=== PATIENT | female | born 1995 ===

== ENCOUNTER 2024-12-06 11:22 | Outpatient (AMB) | payer OTHER, SELFPAY ==
--- NOTE | 2024-12-06 11:26 | MHC.PC.OV ---
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 Fatigue: - Persistent fatigue despite adequate sleep, with associated snoring and nocturnal gasping for air. Anemia: - History of anemia with irregular menstrual cycles potentially contributing to fatigue. Urinary Frequency and Urgency: - Reports frequent urination and discomfort when delaying urination. Review of Systems - General: Reports persistent fatigue despite adequate sleep. - Respiratory: Reports snoring and episodes of waking up gasping for air. - Genitourinary: Reports urinary frequency and urgency, denies incontinence. 10-point ROS reviewed and negative except as noted in HPI Past Medical History - History of anemia Health Maintenance - Sleep study recommended to evaluate for sleep apnea. - Blood tests including hemoglobin, metabolic panel, and thyroid function tests planned. Physical Exam General: Well-appearing, in no acute distress. Vital signs: Within normal limits. HEENT: Normocephalic, atraumatic. PERRLA, EOMI. Conjunctiva clear, sclera anicteric. Oropharynx clear, mucous membranes moist. TMs intact bilaterally. Neck: Supple, no lymphadenopathy, no thyromegaly, no JVD or carotid bruits. Cardiovascular: RRR, normal S1/S2, no murmurs, rubs, or gallops. Peripheral pulses 2+ and symmetric. No edema. Respiratory: Lungs clear to auscultation bilaterally, no wheezes, rales, or rhonchi. Normal effort. Abdomen: Soft, non-tender, non-distended. Normoactive bowel sounds. No hepatosplenomegaly, no masses. MSK: Full range of motion, no joint swelling or deformity. Normal gait. Skin: Warm, dry, intact. No rashes, lesions, or pallor. Neuro: Alert and oriented x3. Cranial nerves II-XII intact. Strength 5/5 throughout. Sensation intact. Reflexes 2+ symmetric. Normal coordination and gait. Psych: Appropriate mood and affect. Normal judgment and insight. Plan 1. Fatigue - Plan to conduct a sleep study to evaluate for sleep apnea. 2. Anemia - Plan to perform blood tests including a complete blood count to assess anemia. 3. Urinary Frequency And Urgency - Plan to conduct urinalysis and further evaluation for urinary symptoms. Discussion Notes I discussed with the patient the potential causes of her fatigue, including sleep apnea and anemia. We agreed on conducting a sleep study and blood tests to further evaluate these conditions. I also explained the importance of monitoring her urinary symptoms and the need for further evaluation. Patient was informed and verbally consented to the use of an ambient scribe for clinic note documentation during this visit. Patient Instructions - Schedule and complete the sleep study as discussed. - Follow up with blood tests as ordered to check for anemia and other conditions. - Monitor urinary symptoms and report any changes or worsening. Total time spent caring for the patient today was 30minutes. This includes time spent before the visit reviewing the chart, time spent documenting, and time spent medications, performing a medically necessary evaluation, counseling on diagnoses, care coordination, ordering appropriate tests. [facility] Medical History (Updated 12/06/24 @ 11:45 by Eric Boothe MD) Sensation of pressure in bladder area Frequency of micturition Fatigue Snoring Family History (Updated 12/06/24 @ 11:29 by Martina Renner MA) Father No problems noted. Mother No problems noted. Social History (Updated 12/06/24 @ 11:35 by Martina Renner MA) Housing: Apartment Alcohol intake: current Alcohol intake frequency: holidays/special occasions only Patient Tobacco Use Status: Never used Tobacco service: No Current occupational status: unemployed Cognitive needs: No Hearing needs: No Vision needs: No Questionnaire PHQ-9 Over the last 2 weeks, how often have you been bothered by any of the following problems? 1. Little interest or pleasure in doing things: not at all 2. Feeling down, depressed, or hopeless: not at all 3. Trouble falling or staying asleep, or sleeping too much: not at all 4. Feeling tired or having little energy: more than half the days 5. Poor appetite or overeating: not at all 6. Feeling bad about yourself - or that you are a failure or have let yourself or your family down: not at all 7. Trouble concentrating on things, such as reading the newspaper or watching television: not at all 8. Moving or speaking so slowly that other people could have noticed. Or the opposite - being so fidgety or restless that you have been moving around a lot more than usual: not at all 9. Thoughts that you would be better off or of hurting yourself in some way: not at all Total score: 2 Source: Developed by Drs. Josafat Jordan, Carolyn Otero, Srinivasa Ramirez and colleagues, with an educational yaniv from [employer]. Thrive Questionnaire Date Thrive assessed: 11/29/24 I am a: Patient What is your living situation today?: I have a steady place to live Within the past 12 months, did the food you bought not last and you didn't have the money to get more?: Never true Within the past 12 months, did you worry whether your food would run out before you got money to buy more?: Never true Do you have trouble paying for medicines?: No Do you have trouble getting transportation to medical appointments?: No Do you have trouble paying your heating and electricity bill?: No Do you have trouble taking care of your child, family member or friend?: No Do you have trouble with day-to-day activities such as bathing, preparing meals, shopping, managing finances, etc.?: No Are you currently unemployed and looking for a job?: No Are you interested in more education?: No Please select the resources that you would like help with: None Currently or been in a relationship where the following occur: No concerns reported THRIVE Score: 0 AUDIT C Alcohol Use Questionnaire (AUDIT-C) 1. How often do you have a drink containing alcohol?: Never 3. How often do you have six or more drinks on one occasion?: Never Total Score: 0 BEL-7 AMB Questionnaire BEL-7 Feeling nervous, anxious, or on edge: 0 = Not at all Not being able to stop or control worryin = Not at all Worrying too much about different things: 0 = Not at all Trouble relaxin = Not at all Being so restless that it is hard to sit still: 0 = Not at all Becoming easily annoyed or irritable: 0 = Not at all Feeling afraid as if something awful might happen: 0 = Not at all Total BEL-7 score (0-4 normal; 5-9 mild; 10-14 moderate; 15-21 severe): 0 Source: Developed by Drs. Josafat Jordan, Carolyn Otero, Srinivasa Ramirez and colleagues, with an educational yaniv from [employer]. Physical exam (Primary Care) Vital Signs: Last Vital Signs Temp 98 F 12/06/24 11:32 Pulse 68 12/06/24 11:32 Resp 16 12/06/24 11:32 BP 115/69 12/06/24 11:32 Pulse Ox 98 12/06/24 11:32 Oxygen Delivery Method Room Air 12/06/24 11:32 BMI result Body Mass Index 28.4 Tobacco/Smoking Status: Tobacco use Status Tobacco use date assessed 12/06/24 12/06/24 11:30 Patient Tobacco Use Status Never used Tobacco 12/06/24 11:35 PHQ-9: PHQ-9 Score PHQ-9: Total score 2 12/06/24 11:30 Thrive Assessment: Date of Thrive Assessment Date Thrive assessed 11/29/24 12/06/24 11:30 Currently or been in a relationship where the following occur: No concerns reported Coding Level of Care Code New Pt Level 4 (44152) Diagnoses Fatigue R53.83 Snoring R06.83 Frequency of micturition R35.0 Sensation of pressure in bladder area R39.89 Anemia D64.9 Urgency of micturition R39.15 Assessment & Plan Assessment & Plan (1) Fatigue: Code(s): R53.83 - Other fatigue Category: Medical (2) Snoring: Code(s): R06.83 - Snoring Category: Medical (3) Frequency of micturition: Code(s): R35.0 - Frequency of micturition Category: Medical (4) Sensation of pressure in bladder area: Code(s): R39.89 - Other symptoms and signs involving the genitourinary system Category: Medical (5) Anemia: Code(s): D64.9 - Anemia, unspecified (6) Urgency of micturition: Code(s): R39.15 - Urgency of urination Plan Orders: Orders Complete Blood Count Auto Diff Today Z13.9 - Encounter for screening, unspecified Magnesium Today Z13.9 - Encounter for screening, unspecified Hepatitis C Antibody Today Z13.9 - Encounter for screening, unspecified Vitamin B12 and Folate Today Z13.9 - Encounter for screening, unspecified RT home sleep study Today N92.6 - Irregular menstruation, unspecified, R06.83 - Snoring, R53.83 - Other fatigue, Z13.9 - Encounter for screening, unspecified Comprehensive Met. Panel Today Z13.9 - Encounter for screening, unspecified Hemoglobin A1c Today Z13.9 - Encounter for screening, unspecified Hepatitis B Surface Antibody Today Z13.9 - Encounter for screening, unspecified Hepatitis B Surface Antigen Today Z13.9 - Encounter for screening, unspecified HIV Ab/Ag Today Z13.9 - Encounter for screening, unspecified Lipid Panel Today Z13.9 - Encounter for screening, unspecified TSH reflex Free T4 Today Z13.9 - Encounter for screening, unspecified UA CC w/rflx Micro + Cult Today Z13.9 - Encounter for screening, unspecified Vitamin D 1,25 dihydroxy Today Z13.9 - Encounter for screening, unspecified
[2024-12-06 11:32] VITALS: BP 115/69; PULSE 68; RESP 16; TEMP 36.6; O2SAT 98; BMI 28.4
--- OUTSIDE RECORDS SUMMARY | 2024-12-06 13:56 | XMS_ITS | Encounter Summary ---
Author Organization [facility] Address [address] [place] [address] Care Team Providers Care Drier Belt Conveyor Name Role Phone Unavailable Primary Care Provider Unavailabl e Encounter Details Date Type Department Care Team ([facility] st Contact Info) Description 03/08/2020 Orders Only [facility] DIRECTOR OF CARDIOLOGY [address] [facility] [address] [place] [address] Cha Qureshi NP [address] [place] [address] Social History Tobacco Use Types Packs/Day Years Used Date Smoking Tobacco: Never Smokeless Tobacco: Never Alcohol Use Standard Drinks/Week Comments No 0 (1 standard drink = 0.6 oz pur e alcohol) Comments Yes Sex and Gender Information Value Date Recorded Sex Assigned at Female 07/12/2021 8:30 AM EDT Legal Sex Female 9:09 AM EST Gender Identity Female 07/12/2021 8:30 AM EDT Sexual Orientation Not on file 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 No / Unsure 03/07/2020 7:12 PM EST documented as of this encounter Progress Notes * Cha Qureshi NP - 03/08/2020 10:17 AM EST H&H, 11/29 Left pt a my chart message Adding vitron C, 2 tabs daily in addition to her pnv Ordering iron labs documented in this encounter Plan of Treatment Not on file documented as of this encounter Procedures * Due to [place] [employer] law, this organization might not be sharing negative HIV tests. Procedure Name Priority Date/Time Associated Diagnosis Comments VENIPUNCTURE Routine 03/08/2020 10:18 AM EST Encounter for supervision of normal , antepartum, unspecified VENIPUNCTURE Routine 03/08/2020 10:18 AM EST Encounter for supervision of normal , antepartum, unspecified documented in this encounter Results * Due to [place] [employer] law, this organization might not be sharing negative HIV tests. * GLUCOSE, 1 HR GESTATIONAL SCREEN (50G CHALLENGE) (03/08/2020 10:18 AM EST) Glucose^1H post 50 g glucose PO 110 <135 mg/dL [facility] 03/08/2020 10:1 8 AM EST 03/09/2020 1:18 AM EST Narrative Resulting Agency Comment [id number] Cha Qureshi NP LABORATORY Final Result Performing Organization Address City/State/[facility] Co de Phone Number [facility] [address] [place] [address] * (ABNORMAL) CBC INCLUDES DIFFERENTIAL AND PLATELET COUNT (03/08/2020 10:18 AM EST) WBC 10.7 3.8 - 10.8 Thousand/u L [facility] RBC 3.58(L) 3.80 - 5.10 Million/uL [facility] Hemoglobin 9.1(L) 11.7 - 15.5 g/dL [facility] Hematocrit 29.3(L) 35.0 - 45.0 % [facility] MCV 81.8 80.0 - 100.0 fL [facility] MCH 25.4(L) 27.0 - 33.0 pg [facility] MCHC 31.1(L) 32.0 - 36.0 g/dL [facility] RDW 14.1 11.0 - 15.0 % [facility] PLT 189 140 - 400 Thousand/u L [facility] MPV 10.5 7.5 - 12.5 fL [facility] Neutrophils # 8785(H) 1500 - 7800 cells/uL [facility] Lymphocytes # 1348 850 - 3900 cells/uL [facility] Monocytes # 503 200 - 950 cells/uL [facility] Eosinophils # 21 15 - 500 cells/uL [facility] Basophils # 43 0 - 200 cells/uL [facility] Neutrophils % 82.1 % [facility] Lymphocytes % 12.6 % [facility] Monocytes % 4.7 % [facility] Eosinophils % 0.2 % [facility] Basophils % 0.4 % [facility] 03/08/2020 10:1 8 AM EST 03/09/2020 1:18 AM EST Narrative Resulting Agency Comment [id number] us Cha Qureshi TOWER EXCAVATOR OPERATOR LAB SAME DAY RESULT Final Re sult Performing Organization Address City/State/[facility] Co de Phone Number [facility] [address] [place] [address] documented in this encounter Visit Diagnoses Diagnosis Encounter for supervision of normal , antepartum, unspecified ([facility]) documented in this encounter Care Teams Drier Belt Conveyor Relationship Specialty Start Date End Date Scarlett Norris [address] [address] 10/30/17 documented as of this encounter
--- OUTSIDE RECORDS SUMMARY | 2024-12-06 13:56 | XMS_ITS | Encounter Summary ---
Author Organization [facility] Address [address] [place] [address] Care Team Providers Care Five Piece Expansion Maker Hand Name Role Phone Padmini Hamilton CNM Unavailable Unavailable Encounter Details Date Type Department Care Team ([facility] st Contact Info) Description 05/30/2017 Orders Only [facility] DENTAL OFFICE COORDINATOR [address] [facility] [address] [place] [address] Manuela Peng CNM [address] [place] [address] Social History Tobacco Use Types Packs/Day Years [...] AM EDT Sexual Orientation Not on file documented as of this encounter Progress Notes * Sherlyn Perry LVN LPN - 06/04/2017 1:19 PM EDT On pap problem list and noted on OB relevant problems. Letter sent * Debra Lewis CNM - 06/04/2017 7:05 AM EDT Per ASCCP guidelines, yes to repeat pap in 1 year. Please update pt's problem list, she will need apap PP. Thanks * Marie Hernandez, SANTOS - 06/03/2017 2:33 PM EDT 06/03/17 PAP LGSIL. Plan - OK for repeat in 1 year? To problem list and provider for review/advice Neg STD to provider fyi documented in this encounter Plan of Treatment Not on file documented as of this encounter Procedures * Due to [place] [employer] law, this organization might not be sharing negative HIV tests. Procedure Name Priority Date/Time Associated Diagnosis Comments THINPREP TIS PAP REFLEX HPV MRNA E6/E7, CT/NG, TRICH Routine 05/30/2017 10:51 AM EDT Encounter for supervision of normal first in first trimester documented in this encounter Results * Due to [place] [employer] law, this organization might not be sharing negative HIV tests. * (ABNORMAL) THINPREP TIS PAP REFLEX HPV MRNA E6/E7, CT/NG, TRICH (05/30/2017 10:51 AM EDT) Clinical information 11.5 WKS [facility] Date last menstrual period NONE GIVEN [facility] Date of previous PAP smear NONE [facility] Date of previous biopsy NONE GIVEN [facility] Specimen source (Cvx/Vag) Cervix, Endocervix [facility] Statement of Adequacy (Cvx/Vag) Satisfactory for evaluation. Endocervical/byrne sformation zone component present. [facility] General categories (Cvx/Vag) EPITHELIAL CELL ABNORMALITY(A) [facility] Cytology, Pap Smear Low Grade Squamous Intraepithelial Lesion (LSIL)(A) [facility] Cytology study comment (Cvx/Vag) This Pap test has been evaluated with computer assisted technology. [facility] Rn Peritoneal Dialysis (Cvx/Vag) ALS CT(ASCP) CT screening location: [place] [address] [facility] Pathologist (Cvx/Vag) Matteo Pack M.D. Direct , Board Certified in Anatomic and Clinical Pathology and Cytopathology (electronic signature) Consulting Pathologist [facility]ology [address] [place] [id number] [facility] COMMENT SEE NOTE [facility] Comment: EXPLANATORY NOTE: The Pap is a screening test for cervical cancer. It is not a diagnostic test and is subject to false negative and false positive results. It is most reliable when a satisfactory sample, regularly obtained, is submitted with relevant clinical findings and history, and when the Pap result is evaluated along with historic and current clinical information. Chlamydia trachomatis rRNA NOT DETECTED NOT DETECTED [facility] Neisseria Gonorrhoeae rRNA NOT DETECTED NOT DETECTED [facility] COMMENT SEE NOTE [facility] Comment: This test was performed using the APTIMA COMBO2 Assay ([employer] The analytical performance characteristics of this assay, when used to test SurePath specimens have been determined by [employer]. Trichomonas vaginalis rRNA NOT DETECTED NOT DETECTED [facility] Comment: This test was performed using the APTIMA(R) Trichomonas vaginalis assay ([employer](R)). For more information on this test, go to: http://education.[employer]/faq/Trichomonastma The performance characteristics of this assay when used to test SurePath(R) specimens have been determined by [employer]. Performance characteristics refer to the analytical performance of this test. 05/30/2017 10:5 1 AM EDT 05/30/2017 7:52 PM EDT Narrative Resulting Agency Comment [id number] us Manuela Peng CNM PATHOLOGY-INTERFACED Final Res ult [facility] [address] [place] [address] documented in this encounter Visit Diagnoses Diagnosis Encounter for supervision of normal first in first trimester ([facility]) Supervision of normal first documented in this encounter Care Teams Five Piece Expansion Maker Hand Relationship Specialty Start Date End Date Padmini Hamilton CNM Coin Teller Certified Nurse Coin Teller 05/02/17 10/29/17 Scarlett Norris [address] [address] 10/30/17 documented as of this encounter
--- OUTSIDE RECORDS SUMMARY | 2024-12-06 13:56 | XMS_ITS | Encounter Summary ---
Author Organization [facility] Address [address] [place] [address] Care Team Providers Care Endband Sizer Name Role Phone Unavailable Primary Care Provider Unavailabl e Encounter Details Date Type Department Care Team (Late st Contact Info) Description 12/02/2019 Orders Only [facility] PICKING TECH [address] [facility] [address] [place] [address] Mihir Marcus, ADJUSTER LEADER Social History Tobacco Use Types Packs/Day Years [...] have Coronavirus / COVID-19? No / Unsure 12/02/2019 12:42 PM EDT documented as of this encounter Progress Notes * Mihir Marcus - 12/02/2019 2:44 PM EDT Abnormal pap, needs colposcopy * Halle Hernández RN - 12/02/2019 2:44 PM EDT See TE 12/07/19 documented in this encounter Plan of Treatment Not on file documented as of this encounter Procedures * Due to [facility] law, this organization might not be sharing negative HIV tests. Procedure Name Priority Date/Time Associated Diagnosis Comments THINPREP TIS PAP REFLEX HPV MRNA E6/E7, CHLAMYDIA/N.GONORR HOEAE Routine 12/02/2019 2:44 PM EDT Encounter for gynecological examination without abnormal finding documented in this encounter Results * Due to [place] [employer] law, this organization might not be sharing negative HIV tests. * (ABNORMAL) THINPREP TIS PAP REFLEX HPV MRNA E6/E7, CHLAMYDIA/N.GONORRHOEAE (12/02/2019 2:44 PM EDT) Clinical information [id number] [facility] Date last menstrual period [facility] Date of previous PAP smear 04/17/2018, ACUS, 2 YRS AGO LSIL [facility] Date of previous biopsy NONE GIVEN [facility] Specimen source (Cvx/Vag) Cervix [facility] Statement of Adequacy (Cvx/Vag) Satisfactory for evaluation. Endocervical/byrne sformation zone component present. [facility] General categories (Cvx/Vag) EPITHELIAL CELL ABNORMALITY(A) [facility] Cytology, Pap Smear Low Grade Squamous Intraepithelial Lesion (LSIL)(A) [facility] Cytology study comment (Cvx/Vag) This Pap test has been evaluated with computer assisted technology. [facility] Performing Artist (Cvx/Vag) GSG, CT(ASCP) CT screening location: [place] [address] [facility] Pathologist (Cvx/Vag) Tiara Lloyd M.D.,PhD, Board Certified in Anatomic and Clinical Pathology and Cytopathology (electronic signature) Consulting Pathologist [facility]ology [address] [place] [id number] [facility] COMMENT SEE NOTE [facility] [...] DIAGNOSTICS COMMENT SEE NOTE [facility] Comment: The analytical performance characteristics of this assay, when used to test SurePath(TM) specimens have been determined by [employer]. The modifications have not been cleared or approved by the FDA. This assay has been validated pursuant to the CLIA regulations and is used for clinical purposes. For additional information, please refer to https://education.[employer]/faq/QVP609 (This link is being provided for information/ educational purposes only.) Cervical 12/02/2019 2:44 PM EDT 12/03/2019 5:53 AM EDT Narrative Resulting Agency Comment [id number] us Mihir Marcus NP PATHOLOGY-INTERFACED Final Res ult Performing Organization Address City/State/[facility] Co de Phone Number [facility] [address] [place] [address] documented in this encounter Visit Diagnoses Diagnosis Encounter for gynecological examination without abnormal finding Routine gynecological examination documented in this encounter Care Teams Endband Sizer Relationship Specialty Start Date End Date Scarlett Norris [address] [address] 10/30/17 documented as of this encounter
--- OUTSIDE RECORDS SUMMARY | 2024-12-06 13:56 | XMS_ITS | Encounter Summary ---
Author Organization [facility] Address [address] [place] [address] Care Team Providers Care Manager Pmo Name Role Phone Unavailable Primary Care Provider Unavailabl e Encounter Details Date Type Department Care Team (Late st Contact Info) Description 10/29/2019 Orders Only [place] [employer] [address] [place] [address] Gisselle Urena CNM [address] [place] [address] Social History Tobacco Use Types Packs/Day Years Used Date Smoking Tobacco: Never Smokeless Tobacco: Never Alcohol Use Standard Drinks/Week Comments No 0 (1 standard drink = 0.6 oz pur e alcohol) Comments No Sex and Gender Information Value Date Recorded Sex Assigned at Female 07/12/2021 8:30 AM EDT Legal Sex Female 9:09 AM EST Gender Identity Female 07/12/2021 8:30 AM EDT Sexual Orientation Not on file documented as of this encounter Progress Notes * Jess Bailey - 10/29/2019 11:29 AM EDT Already reviewed by Patricia Urena and pt via my chart. Needs dating US due to Unknown LMP. See TMS for follow up. documented in this encounter Plan of Treatment Not on file documented as of this encounter Procedures * Due to [place] state law, this organization might not be sharing negative HIV tests. Procedure Name Priority Date/Time Associated Diagnosis Comments VENIPUNCTURE Routine 10/29/2019 11:29 AM EDT Date of last menstrual period (LMP) unknown documented in this encounter Results * Due to [place] [employer] law, this organization might not be sharing negative HIV tests. * (ABNORMAL) HCG, (HUMAN CHORIONIC GONADOTROPIN), TOTAL, QUANTITATIVE (10/29/2019 11:29 AM EDT) HCG, Total, Quantitative 159302(H) mIU/mL [facility] Comment: Reference Range Non or premenopausal <5 Postmenopausal <10 Values from different assay methods may vary. The use of this assay to monitor or to diagnose patients with cancer or any condition unrelated to has not been cleared or approved by the FDA or the heavy coil winder of the assay. 10/29/2019 11:2 9 AM EDT 10/29/2019 1:57 PM EDT Narrative Resulting Agency Comment [id number] Gisselle Urena [facility] LAB SAME DAY RESULT Final Result Performing Organization Address City/State/[facility] Co de Phone Number [facility] [address] [place] [address] documented in this encounter Visit Diagnoses Diagnosis Date of last menstrual period (LMP) unknown documented in this encounter Care Teams Manager Pmo Relationship Specialty Start Date End Date Scarlett Norris [address] [address] 10/30/17 documented as of this encounter
--- OUTSIDE RECORDS SUMMARY | 2024-12-06 13:56 | XMS_ITS | Encounter Summary ---
Author Organization [facility] Address [address] [place] [address] Care Team Providers Care Supervisor Aircraft Cleaning Name Role Phone Lucretia Salas MD Primary Care Provider [phone] Padmini Hamilton CNM Unavailable Unavailable Encounter Details Date Type Department Care Team (Late st Contact Info) Description 04/14/2017 Orders Only [facility] [address] [place] [address] Padmini Hamilton CNM Social History Tobacco Use Types Packs/Day Years Used Date Smoking Tobacco: Never Assessed Comments Unknown Sex and Gender Information Value Date Recorded Sex Assigned at Female 07/12/2021 8:30 AM EDT Legal Sex Female 9:09 AM EST Gender Identity Female 07/12/2021 8:30 AM EDT Sexual Orientation Not on file documented as of this encounter Progress Notes * Lexi Norman RN - 04/15/2017 11:39 AM EST Patient scheduled for routine OB appts documented in this encounter Plan of Treatment Not on file documented as of this encounter Procedures * Due to [place] state law, this organization might not be sharing negative HIV tests. Procedure Name Priority Date/Time Associated Diagnosis Comments HCG, TOTAL, QL Routine 04/14/2017 12:16 PM EST Unconfirmed documented in this encounter Results * Due to [place] state law, this organization might not be sharing negative HIV tests. * URINALYSIS, COMPLETE INCLUDES DIPSTICK AND MICROSCOPIC (04/28/2017 2:52 PM EST) Color (Urine) YELLOW YELLOW [facility] Appearance (Urine) CLEAR CLEAR [facility] Specific gravity (Urine) 1.008 1.001 - 1.035 [facility] pH (Urine) 6.5 5.0 - 8.0 [facility] Glucose (Urine) NEGATIVE NEGATIVE [facility] Bilirubin (Urine) NEGATIVE NEGATIVE [facility] Ketones (Urine) NEGATIVE NEGATIVE [facility] Hemoglobin (Urine) NEGATIVE NEGATIVE [facility] Protein (Urine) NEGATIVE NEGATIVE [facility] Nitrite (Urine) NEGATIVE NEGATIVE [facility] Leukocyte esterase (Urine) NEGATIVE NEGATIVE [facility] WBC (Urine) NONE SEEN < OR = 5 /HPF [facility] RBC (Urine Sed) NONE SEEN < OR = 2 /HPF [facility] Epithelial cells.squamous (Urine sed) 0-5 < OR = 5 /HPF [facility] Bacteria (Urine) NONE SEEN NONE SEEN /HPF [facility] Hyaline casts (Urine sed) NONE SEEN NONE SEEN /LPF [facility] 04/28/2017 2:52 PM EST 04/29/2017 12:15 AM EST Narrative Resulting Agency Comment [id number] Padmini Hamilton CNM LAB SAME DAY RESULT Final Re sult Performing Organization Address [facility] Co de Phone Number [facility] [address] [place] [address] * CULTURE, URINE, ROUTINE (04/28/2017 2:52 PM EST) Bacteria culture (Urine) SEE NOTE [facility] Comment: CULTURE, URINE, ROUTINE MICRO NUMBER: [id number] TEST STATUS: FINAL SPECIMEN SOURCE: URINE SPECIMEN QUALITY: ADEQUATE RESULT: No Growth 04/28/2017 2:52 PM EST 04/29/2017 12:15 AM EST Narrative Resulting Agency Comment [id number] Padmini Hamilton [facility] Final Result Performing Organization Address [facility] Co de Phone Number [facility] [address] [place] [address] * (ABNORMAL) 1 PROFILE WITH VZV (04/28/2017 2:52 PM EST) WBC 10.8 3.8 - 10.8 Thousand /uL [facility] RBC 4.21 3.80 - 5.10 Million/ uL [facility] Hemoglobin 12.4 11.7 - 15.5 g/dL [facility] Hematocrit 37.4 35.0 - 45.0 % [facility] MCV 88.7 80.0 - 100.0 fL [facility] MCH 29.5 27.0 - 33.0 pg [facility] MCHC 33.3 32.0 - 36.0 g/dL [facility] RDW 13.7 11.0 - 15.0 % [facility] PLT 241 140 - 400 Thousand /uL [facility] MPV 8.9 7.5 - 12.5 fL [facility] Neutrophils # 7916(H) 1500 - 7800 cells/uL [facility] Lymphocytes # 2106 850 - 3900 cells/uL [facility] Monocytes # 702 200 - 950 cells/uL [facility] Eosinophils # 32 15 - 500 cells/uL [facility] Basophils # 43 0 - 200 cells/uL [facility] Neutrophils % 73.3 % [facility] Lymphocytes % 19.5 % [facility] Monocytes % 6.5 % [facility] Eosinophils % 0.3 % [facility] Basophils % 0.4 % [facility] Blood group antibody screen NO ANTIBODIES DETECTED [facility] Comment: Reference range No antibodies detected This assay is a screening test for the detection of red blood cell antibodies. The test is not to be used for pretransfusion screening or for the medical management of an alloimmunized . Blood Group O [facility] Rh Type RH(D) POSITIVE [facility] Reagin Ab NON-REACTIVE NON-REAC TIVE [facility] Hepatitis B virus surface Ag NON-REACTIVE NON-REAC TIVE [facility] Rubella virus Ab.IgG 3.67 index [facility] Comment: Index Interpretation ----- <0.90 Not consistent with Immunity 0.90-0.99 Equivocal > or = 1.00 Consistent with Immunity The presence of rubella IgG antibody suggests immunization or past or current infection with rubella virus. Glucose 90 65 - 99 mg/dL [facility] Comment:Fasting reference in terval Varicella zoster virus Ab.IgG 245.10 index [facility] Comment: Index Interpretation --------- <135.00 Negative - Antibody not detected 135.00 - 164.99 Equivocal > or = 165.00 Positive - Antibody detected A positive result indicates that the patient has antibody to VZV but does not differentiate between an active or past infection. The clinical diagnosis must be interpreted in conjunction with the clinical signs and symptoms of the patient. This assay reliably measures immunity due to previous infection but may not be sensitive enough to detect antibodies induced by vaccination. Thus, a negative result in a vaccinated individual does not necessarily indicate susceptibility to VZV infection. 04/28/2017 2:52 PM EST 04/29/2017 12:15 AM EST Narrative Resulting Agency Comment [id number] Padmini Hamilton CNM LABORATORY Final Result Performing Organization Address [facility] Co de Phone Number [facility] [address] [place] [address] * (ABNORMAL) HCG, TOTAL, QL (04/14/2017 12:16 PM EST) HCG, Qualitative (Screen) POSITIVE( A) [facility] Comment: Reference Range Non-: Negative : Positive 04/14/2017 12:1 6 PM EST 04/14/2017 4:51 PM EST Narrative Resulting Agency Comment [id number] Padmini Hamilton CNM LAB SAME DAY RESULT Final Re sult Performing Organization Address [facility] Co de Phone Number [facility] [address] [place] [address] documented in this encounter Visit Diagnoses Diagnosis Unconfirmed examination or test, unconfirmed Supervision of normal first , antepartum (HHS) Urine frequency Urinary frequency Screening for HIV (human immunodeficiency virus) Special screening examination for other specified viral diseases documented in this encounter Care Teams Supervisor Aircraft Cleaning Relationship Specialty Start Date End Date [place] [address] PCP - General Pediatrics 04/14/17 04/14/17 Padmini Hamilton CNM [address] [address] Canteen Operator Certified Nurse Canteen Operator 05/02/17 Scarlett Norris [address] [address] 10/30/17 documented as of this encounter
--- OUTSIDE RECORDS SUMMARY | 2024-12-06 13:56 | XMS_ITS | Encounter Summary ---
Author Organization [facility] Address [address] [place] [address] Care Team Providers Care Yard Switcher Name Role Phone Unavailable Primary Care Provider Unavailabl e Encounter Details Date Type Department Care Team ([facility] st Contact Info) Description 12/02/2019 Orders Only [facility] SLEEVE TAILOR [address] [place] [address] Gisselle Urena CNM [address] [place] [address] Social History Tobacco Use Types Packs/Day Years [...] as of this encounter Progress Notes * Berta Treviño RN - 12/02/2019 1:40 PM EDT Problem list updated. documented in this encounter Plan of Treatment Not on file documented as of this encounter Procedures * Due to [place] law, this organization might not be sharing negative HIV tests. Procedure Name Priority Date/Time Associated Diagnosis Comments 1 PROFILE WITH VZV Routine 12/02/2019 1:40 PM EDT , unspecified gestational age CULTURE, URINE, ROUTINE Routine 12/02/2019 1:40 PM EDT Urinary frequency VENIPUNCTURE Routine 12/02/2019 1:40 PM EDT , unspecified gestational age URINALYSIS, COMPLETE INCLUDES DIPSTICK AND MICROSCOPIC Routine 12/02/2019 1:40 PM EDT Urinary frequency documented in this encounter Results * Due to [place] law, this organization might not be sharing negative HIV tests. * URINALYSIS, COMPLETE INCLUDES DIPSTICK AND MICROSCOPIC (12/02/2019 1:40 PM EDT) Color (Urine) YELLOW YELLOW [facility] Appearance (Urine) CLEAR CLEAR [facility] Specific gravity (Urine) 1.025 1.001 - 1.035 [facility] pH (Urine) 6.0 5.0 - 8.0 [facility] Glucose (Urine) NEGATIVE NEGATIVE [facility] Bilirubin (Urine) NEGATIVE NEGATIVE [facility] Ketones (Urine) NEGATIVE NEGATIVE [facility] Hemoglobin (Urine) NEGATIVE NEGATIVE [facility] Protein (Urine) NEGATIVE NEGATIVE [facility] Nitrite (Urine) NEGATIVE NEGATIVE [facility] Leukocyte esterase (Urine) NEGATIVE NEGATIVE [facility] WBC (Urine) NONE SEEN < OR = 5 /HPF [facility] RBC (Urine Sed) 0-2 < OR = 2 /HPF [facility] Epithelial cells.squamous (Urine sed) NONE SEEN < OR = 5 /HPF [facility] Bacteria (Urine) NONE SEEN NONE SEEN /HPF [facility] Hyaline casts (Urine sed) NONE SEEN NONE SEEN /LPF [facility] 12/02/2019 1:40 PM EDT 12/02/2019 11:36 PM EDT Narrative Resulting Agency Comment [id number] [facility] SAME DAY RESULT Final Result Performing Organization Address [facility] Co de Phone Number [facility] [address] [place] [address] * CULTURE, URINE, ROUTINE (12/02/2019 1:40 PM EDT) Bacteria culture (Urine) SEE NOTE [facility] Comment: CULTURE, URINE, ROUTINE Micro Number: [id number] Test Status: Final Specimen Source: URINE Specimen Quality: Adequate Result: Growth of mixed gisela was isolated, suggesting probable contamination. No further testing will be performed. If clinically indicated, recollection using a method to minimize contamination, with prompt transfer to Urine Culture Transport Tube, is recommended. 12/02/2019 1:40 PM EDT 12/02/2019 11:36 PM EDT Narrative Resulting Agency Comment [id number] [facility] LABORATORY Final Resu lt Performing Organization Address [facility] de Phone Number [facility] [address] [place] [address] * (ABNORMAL) 1 PROFILE WITH VZV (12/02/2019 1:40 PM EDT) WBC 10.1 3.8 - 10.8 Thousand /uL [facility] RBC 3.81 3.80 - 5.10 Million/ uL [facility] Hemoglobin 10.5(L) 11.7 - 15.5 g/dL [facility] Hematocrit 31.4(L) 35.0 - 45.0 % [facility] MCV 82.4 80.0 - 100.0 fL [facility] MCH 27.6 27.0 - 33.0 pg [facility] MCHC 33.4 32.0 - 36.0 g/dL [facility] RDW 14.3 11.0 - 15.0 % [facility] PLT 266 140 - 400 Thousand /uL [facility] MPV 10.9 7.5 - 12.5 fL [facility] Neutrophils # 7797 1500 - 7800 cells/uL [facility] Lymphocytes # 1687 850 - 3900 cells/uL [facility] Monocytes # 515 200 - 950 cells/uL [facility] Eosinophils # 51 15 - 500 cells/uL [facility] Basophils # 51 0 - 200 cells/uL [facility] Neutrophils % 77.2 % [facility] Lymphocytes % 16.7 % [facility] Monocytes % 5.1 % [facility] Eosinophils % 0.5 % [facility] Basophils % 0.5 % [facility] Blood group antibody screen NO ANTIBODIES DETECTED [facility] Comment: Reference range No antibodies detected This assay is a screening test for the detection of red blood cell antibodies. The test is not to be used for pretransfusion screening or for the medical management of an alloimmunized . Blood Group O [facility] Rh Type RH(D) POSITIVE [facility] COMMENT SEE NOTE [facility] Comment: For additional information, please refer to http://education.Lozo/faq/WHS288 (This link is being provided for informational/ educational purposes only.) Reagin Ab NON-REACTIVE NON-REAC TIVE [facility] Hepatitis B virus surface Ag NON-REACTIVE NON-REAC TIVE [facility] Rubella virus Ab.IgG 2.63 index [facility] Comment: Index Interpretation ----- <0.90 Not consistent with Immunity 0.90-0.99 Equivocal > or = 1.00 Consistent with Immunity The presence of rubella IgG antibody suggests immunization or past or current infection with rubella virus. Glucose 79 65 - 99 mg/dL [facility] Comment:Fasting reference in terval Varicella zoster virus Ab.IgG 196.50 index [facility] Comment: Index Interpretation --------- [...] not necessarily indicate susceptibility to VZV infection. A more sensitive test for vaccination-induced immunity is Varicella Zoster Virus Antibody Immunity Screen, ACIF. 12/02/2019 1:40 PM EDT 12/02/2019 11:36 PM EDT Narrative Resulting Agency Comment [id number] Gisselle Urena [facility] Final Resu lt Performing Organization Address [facility] Co de Phone Number [facility] [address] [place] [address] * HEPATITIS C AB WITH REFLEX TO RNA PCR, SERUM (12/02/2019 1:40 PM EDT) Hepatitis C virus Ab NON-REACT SHERMAN NON-REACT SHERMAN [facility] Hepatitis C virus Ab Signal/Cutoff 0.01 <1.00 [facility] Comment: HCV antibody was non-reactive. There is no laboratory evidence of HCV infection. In most cases, no further action is required. However, if recent HCV exposure is suspected, a test for HCV RNA (test code 79250) is suggested. For additional information please refer to http://education.BioArray/faq/SSI39t0 (This link is being provided for informational/ educational purposes only.) 12/02/2019 1:40 PM EDT 12/02/2019 11:36 PM EDT Narrative Resulting Agency Comment [id number] Gisselle Millergray [facility] Final Resu lt Performing Organization Address City/[facility] Co de Phone Number [facility] [address] [place] [address] documented in this encounter Visit Diagnoses Diagnosis , unspecified gestational age (HHS) Urinary frequency documented in this encounter Care Teams Yard Switcher Relationship Specialty Start Date End Date Scarlett Norris [address] [address] 10/30/17 documented as of this encounter
--- OUTSIDE RECORDS SUMMARY | 2024-12-06 13:56 | XMS_ITS | Encounter Summary ---
Author Organization [facility] Address [address] [place] [address] Care Team Providers Care Hand Ii Tube Bender Name Role Phone Unavailable Primary Care Provider Unavailabl e Encounter Details Date Type Department Care Team (Late st Contact Info) Description 04/19/2020 Orders Only [facility] LIFE SCIENCES INSTRUCTOR [address] [place] [address] Gisselle Urena CNM [address] [place] [address] Social History Tobacco Use Types Packs/Day Years [...] have Coronavirus / COVID-19? No / Unsure 04/10/2020 10:06 AM EST documented as of this encounter Plan of Treatment Not on file documented as of this encounter Visit Diagnoses Not on filedocumented in this encounter Care Teams Hand Ii Tube Bender Relationship Specialty Start Date End Date Scarlett Norris [place] [phone] 10/30/17 documented as of this encounter
--- OUTSIDE RECORDS SUMMARY | 2024-12-06 13:56 | XMS_ITS | Encounter Summary ---
Author Organization [facility] Address [address] [place] [address] Care Team Providers Care Traffic I Manager Name Role Phone Unavailable Primary Care Provider Unavailabl e Encounter Details Date Type Department Care Team ([facility] st Contact Info) Description 02/23/2020 Orders Only [facility] BUSINESS ANALYSIS CONSULTANT [address] [facility] [address] [place] [address] Cha Qureshi NP [address] [place] [address] Social History Tobacco Use Types Packs/Day Years [...] have Coronavirus / COVID-19? No / Unsure 02/23/2020 9:12 AM EST documented as of this encounter Progress Notes * Cha Qureshi NP - 02/23/2020 2:25 PM EST 28 wks gestation Vag cx positive for BV Flagyl called in and pt notified via my chart documented in this encounter Plan of Treatment Not on file documented as of this encounter Procedures * Due to [place] [employer] law, this organization might not be sharing negative HIV tests. 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 * (ABNORMAL) BV/VAGINITIS PANELDNA PROBE (02/23/2020 2:25 PM EST) Trichomonas vaginalis rRNA (Genital) NOT DETECTED NOT DETECTED [facility] Gardnerella vaginalis rRNA (Genital) DETECTED(A) NOT DETECTED [facility] Comment: Increased levels of G. vaginalis may not be significant in the absence of signs and symptoms of bacterial vaginosis. 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
--- OUTSIDE RECORDS SUMMARY | 2024-12-06 13:56 | XMS_ITS | Encounter Summary ---
Author Organization [facility] Address [address] [place] [address] Care Team Providers Care Finance Mgr Name Role Phone Padmini Hamilton CNM Unavailable Unavailable Encounter Details Date Type Department Care Team (Late st Contact Info) Description 04/28/2017 Orders Only [facility] EMERGENCY DEPARTMENT TECHNICIAN [address] [place] [address] Padmini Hamilton, RICHARD Social History Tobacco Use Types Packs/Day Years Used Date Smoking Tobacco: Never Assessed Comments Yes Sex and Gender Information Value Date Recorded Sex Assigned at Female 07/12/2021 8:30 AM EDT Legal Sex Female 9:09 AM EST Gender Identity Female 07/12/2021 8:30 AM EDT Sexual Orientation Not on file documented as of this encounter Progress Notes * Lexi Norman RN - 04/30/2017 4:30 PM EST Noted on problem list To provider for review * Lexi Norman RN - 04/29/2017 3:55 PM EST UC preliminary * Lexi Norman RN - 04/29/2017 8:05 AM EST Labs prelim documented in this encounter Plan of Treatment Not on file documented as of this encounter Procedures * Due to [place] IDverge law, this organization might not be sharing negative HIV tests. Procedure Name Priority Date/Time Associated Diagnosis Comments 1 PROFILE WITH VZV Routine 04/28/2017 2:52 PM EST Supervision of normal first , antepartum CULTURE, URINE, ROUTINE Routine 04/28/2017 2:52 PM EST Urine frequency URINALYSIS, COMPLETE INCLUDES DIPSTICK AND MICROSCOPIC Routine 04/28/2017 2:52 PM EST Urine frequency documented in this encounter Results * Due to [place] IDverge law, this organization might not be sharing [...] 12:15 AM EST Narrative Resulting Agency Comment [id number] us Padmini Hamilton CNM LAB SAME DAY RESULT Final Re sult [facility] [address] [place] [address] * CULTURE, URINE, ROUTINE (04/28/2017 2:52 PM EST) Bacteria culture (Urine) SEE NOTE [facility] Comment: CULTURE, URINE, ROUTINE MICRO NUMBER: [id number] TEST STATUS: FINAL SPECIMEN SOURCE: URINE SPECIMEN QUALITY: ADEQUATE RESULT: No Growth 04/28/2017 2:52 PM EST 04/29/2017 12:15 AM EST Narrative Resulting Agency Comment [id number] Padmini Hamilton NAT LABORATORY Final Result [facility] [address] [place] [address] * (ABNORMAL) 1 PROFILE WITH VZV (04/28/2017 [...] 12:15 AM EST Narrative Resulting Agency Comment [id number] Padmini Hamilton CNM LABORATORY Final Result Performing Organization Address City/State/[facility] Co de Phone Number [facility] [address] [place] [address] documented in this encounter Visit Diagnoses Diagnosis Supervision of normal first , antepartum ([facility]) Urine frequency Urinary frequency Screening for HIV (human immunodeficiency virus) Special screening examination for other specified viral diseases documented in this encounter Care Teams Finance Mgr Relationship Specialty Start Date End Date Padmini Hamilton CNM Document Control Manager Certified Nurse Document Control Manager 05/02/17 10/29/17 Scarlett Norris [address] [address] 10/30/17 documented as of this encounter
--- OUTSIDE RECORDS SUMMARY | 2024-12-06 13:57 | XMS_ITS | Encounter Summary ---
Author Organization [facility] Address [address] [place] [address] Care Team Providers Care Chemist Proteins Name Role Phone Padmini Hamilton CNM Unavailable Unavailable Encounter Details Date Type Department Care Team (Late st Contact Info) Description 10/27/2017 Orders Only [facility] SENIOR DB2 SYSTEMS PROGRAMMER [address] [place] [address] Daya Urias NP Social History Tobacco Use Types Packs/Day Years [...] Notes * Sherlyn Perry LVN LPN - 10/29/2017 12:28 PM EDT Normal results to provider on pt. documented in this encounter Plan of Treatment Not on file documented as of this encounter Procedures * Due to [place] state law, this organization might not be sharing negative HIV tests. Procedure Name Priority Date/Time Associated Diagnosis Comments CULTURE, URINE, ROUTINE Routine 10/27/2017 2:27 PM EDT Encounter for supervision of normal first in third trimester documented in this encounter Results * Due to [place] state law, this organization might not be sharing negative HIV tests. * CULTURE, URINE, ROUTINE (10/27/2017 2:27 PM EDT) Bacteria culture (Urine) SEE NOTE [facility] Comment: CULTURE, URINE, ROUTINE MICRO NUMBER: [id number] TEST STATUS: FINAL SPECIMEN SOURCE: URINE SPECIMEN QUALITY: ADEQUATE RESULT: Multiple organisms present, each less than 10,000 CFU/mL. These organisms, commonly found on external and internal genitalia, are considered to be colonizers. No further testing performed. 10/27/2017 2:27 PM EDT 10/27/2017 11:02 PM EDT Narrative Resulting Agency Comment [id number] us Daya Urias NP LABORATORY Final Result Performing Organization Address City/State/[facility] Co de Phone Number [facility] [address] [place] [address] documented in this encounter Visit Diagnoses Diagnosis Encounter for supervision of normal first in third trimester ([facility]) Supervision of normal first documented in this encounter Care Teams Chemist Proteins Relationship Specialty Start Date End Date Padmini Hamilton CNM Steel Barrel Reamer Certified Nurse Steel Barrel Reamer 05/02/17 10/29/17 Scarlett Norris [address] [address] 10/30/17 documented as of this encounter
--- OUTSIDE RECORDS SUMMARY | 2024-12-06 13:57 | XMS_ITS | Encounter Summary ---
Author Organization [facility] Address [address] [place] [address] Care Team Providers Care Branch Customer Service Representative Name Role Phone Unavailable Primary Care Provider Unavailabl e Encounter Details Date Type Department Care Team (Late st Contact Info) Description 04/20/2018 Telephone [facility] RN IMCU [address] [facility] [address] [place] [id number] Malka Amos CNM Social History Tobacco Use Types Packs/Day [...] on file documented as of this encounter Plan of Treatment Not on file documented as of this encounter Visit Diagnoses Not on filedocumented in this encounter Care Teams Branch Customer Service Representative Relationship Specialty Start Date End Date Scarlett Norris [address] [address] 10/30/17 documented as of this encounter
--- OUTSIDE RECORDS SUMMARY | 2024-12-06 13:57 | XMS_ITS | Encounter Summary ---
Author Organization [facility] Address [address] [place] [address] Care Team Providers Care Venue Attendant Name Role Phone Unavailable Primary Care Provider Unavailabl e Encounter Details Date Type Department Care Team (Late st Contact Info) Description 04/17/2018 Orders Only [facility] RAW HIDE TRIMMER [address] [place] [address] Gisselle Urena CNM [address] [place] [address] Social History Tobacco Use Types Packs/Day Years [...] encounter Progress Notes * Jess Bailey - 04/24/2018 1:29 PM EST On recall/problem lists. Results letter with recommendation sent to pt. Also released to my chart. * Gisselle Urena CNM - 04/24/2018 12:59 PM EST HPV negative. F/U 1 year. This is a normal pap * Crystal Jackson LPN - 04/23/2018 11:20 AM EST repeat pap FINAL - ASCUS, HPV negative LPAP 05/30/17 - LGSIL Problem list updated, message to ordering provider for review and advise - ? Colposcopy versus repeat 1 year? documented in this encounter Plan of Treatment Not on file documented as of this encounter Procedures * Due to [place] Moki.tv law, this organization might not be sharing negative HIV tests. Procedure Name Priority Date/Time Associated Diagnosis Comments THINPREP TIS PAP REFLEX HPV MRNA E6/E7, CT/NG, TRICH Routine 04/17/2018 2:35 PM EST Screening for malignant neoplasm of cervix HPV RNA, HIGH RISK, E6/E7, TMA Routine 04/17/2018 2:35 PM EST documented in this encounter Results * Due to [place] Moki.[employer] law, this organization might not be sharing negative HIV tests. * HPV RNA, HIGH RISK, E6/E7, TMA (04/17/2018 2:35 PM EST) HPV MRNA E6/E7 Not Detected Not Detected [facility] Comment: This test was performed using the APTIMA HPV Assay ([employer] This assay detects E6/E7 viral messenger RNA (mRNA) from 14 high-risk HPV types (16,18,31,33,35,39,45,51,52,56,58,59,66,68). The analytical performance characteristics of this assay have been determined by [employer]. The modifications have not been cleared or approved by the FDA. This assay has been validated pursuant to the CLIA regulations and is used for clinical purposes. 04/17/2018 2:35 PM EST 04/17/2018 10:21 PM EST Gisselle Urena [facility] Final Resu lt [facility] [address] [place] [address] * (ABNORMAL) THINPREP TIS PAP REFLEX HPV MRNA E6/E7, CT/NG, TRICH (04/17/2018 2:35 PM EST) Clinical information None given [facility] Date last menstrual period 04/06/18 [facility] Date of previous PAP smear 05/30/17 LSIL [facility] Date of previous biopsy NONE GIVEN [facility] Specimen source (Cvx/Vag) Cervix, Endocervix [facility] Statement of Adequacy (Cvx/Vag) Satisfactory for evaluation. Endocervical/tr ansformation zone component present. [facility] General categories (Cvx/Vag) EPITHELIAL CELL ABNORMALITY(A) [facility] Cytology, Pap Smear Atypical Squamous Cells of Undetermined Significance (ASC-US)(A) [facility] Cytology study comment (Cvx/Vag) This Pap test has been evaluated with computer assisted technology. [facility] Job Change Crew Member (Cvx/Vag) FAWN HUSSEIN(ASCP) CT screening location: [place] [address] [facility] Pathologist (Cvx/Vag) Kaitlyn Limon M.D., Ph.D., Board Certified in Anatomic and Clinical Pathology and Cytopathology (electronic signature) Consulting Pathologist [facility] [address] [place] [address] [facility] COMMENT SEE NOTE [facility] Comment: EXPLANATORY NOTE: The Pap is [...] NOT DETECTED [facility] COMMENT SEE NOTE [facility] Comment: This test was performed using the APTIMA COMBO2 Assay ([employer] The analytical performance characteristics of this assay, when used to test SurePath specimens have been determined by [employer]. Trichomonas vaginalis rRNA NOT DETECTED NOT DETECTED [facility] Comment: This test was performed using the APTIMA(R) Trichomonas vaginalis assay ([employer](R)). For more information on this test, go to: http://education.Bizzby.Hypejar/faq/Trichomonastma The performance characteristics of this assay when used to test SurePath(R) specimens have been determined by [employer]. Performance characteristics refer to the analytical performance of this test. 04/17/2018 2:35 PM EST 04/17/2018 10:21 PM EST Narrative Resulting Agency Comment [id number] Gisselle Urena CNM PATHOLOGY-INTERFACED Final Result [facility] [address] [place] [address] documented in this encounter Visit Diagnoses Diagnosis Screening for malignant neoplasm of cervix Screening for malignant neoplasm of the cervix documented in this encounter Care Teams Venue Attendant Relationship Specialty Start Date End Date Scarlett Norris [address] [address] 10/30/17 documented as of this encounter
--- OUTSIDE RECORDS SUMMARY | 2024-12-06 13:57 | XMS_ITS | Encounter Summary ---
Author Organization [facility] Address [address] [place] [address] Care Team Providers Care Manufacturing Lead Name Role Phone Unavailable Primary Care Provider Unavailabl e Encounter Details Date Type Department Care Team (Late st Contact Info) Description 07/15/2018 Orders Only [facility] PREPARER MAKING DEPARTMENT [address] [facility] [address] [place] [address] Anne Johnson CNM Social History Tobacco Use Types Packs/Day [...] documented as of this encounter Visit Diagnoses Diagnosis Encounter for supervision of other normal in second trimester ([facility]HS) documented in this encounter Care Teams Manufacturing Lead Relationship Specialty Start Date End Date Scarlett Norris [address] [address] 10/30/17 documented as of this encounter
--- OUTSIDE RECORDS SUMMARY | 2024-12-06 13:57 | XMS_ITS | Encounter Summary ---
Author Organization [facility] Address [address] [place] [address] Care Team Providers Care Chemical Preparer Name Role Phone Unavailable Primary Care Provider Unavailabl e Encounter Details Date Type Department Care Team (Late st Contact Info) Description 08/31/2020 Orders Only [facility] Pre-Admission Testing [address] [place] [address] Alva Vega NP Social History Tobacco Use Types Packs/Day [...] file Not on file Not on file documented as of this encounter Miscellaneous Notes * Result Encounter Note - Alva Vega NP - 08/31/2020 10:02 AM EDT Terrance Sutton, Your hematocrit and hemoglobin are improved since you were . Your iron levels remain low. Iknow you are restarting your iron supplement. Your kidney function is normal. Your blood sugar level was low at 57, had you skipped breakfast that morning? Please let me know. Thanks, LISY Calle CC: Malka Amos CNM. Hi Malka, I am ccing you on the pre-op lab results as she identifies you as her primary care provider. Alva Castle * Result Encounter Note - Victoriano Coe MD - 08/31/2020 10:02 AM EDT fyi to Dr. Cantu who is doing her surgery documented in this encounter Plan of Treatment Not on file documented as of this encounter Procedures * Due to [place] Teros law, this organization might not be sharing negative HIV tests. Procedure Name Priority Date/Time Associated Diagnosis Comments CBC INCLUDES DIFFERENTIAL AND PLATELET COUNT Routine 08/31/2020 10:02 AM EDT Preoperative examination Unwanted fertility Iron deficiency anemia, unspecified iron deficiency anemia type IRON PROFILE (IRON/TIBC), SERUM Routine 08/31/2020 10:02 AM EDT Preoperative examination Unwanted fertility Iron deficiency anemia, unspecified iron deficiency anemia type FERRITIN Routine 08/31/2020 10:02 AM EDT Preoperative examination Unwanted fertility Iron deficiency anemia, unspecified iron deficiency anemia type VENIPUNCTURE Routine 08/31/2020 10:02 AM EDT Preoperative examination Unwanted fertility Iron deficiency anemia, unspecified iron deficiency anemia type documented in this encounter Results * Due to [place] Ter[place] law, this organization might not be sharing negative HIV tests. * FERRITIN (08/31/2020 10:02 AM EDT) Ferritin 19 16 - 154 ng/mL [facility] 08/31/2020 10:0 2 AM EDT 08/31/2020 4:10 PM EDT Narrative Resulting Agency Comment [id number] Alva Vega NP LABORATORY Final Result [facility] [address] [place] [address] * (ABNORMAL) IRON PROFILE (IRON/TIBC), SERUM (08/31/2020 10:02 AM EDT) Pathologist [facility] Iron 35(L) 40 - 190 mcg/dL [facility] Iron binding capacity 334 250 - 450 mcg/dL (calc) [facility] Iron saturation 10(L) 16 - 45 % (calc) [facility] 08/31/2020 10:0 2 AM EDT 08/31/2020 4:10 PM EDT Narrative Resulting Agency Comment [id number] Alva Vega NP LABORATORY Final Result Performing Organization Address City/[facility] Co de Phone Number [facility] [address] [place] [address] * CBC INCLUDES DIFFERENTIAL AND PLATELET COUNT (08/31/2020 10:02 AM EDT) Pathologist [facility] WBC 7.3 3.8 - 10.8 Thousand/u L [facility] RBC 4.32 3.80 - 5.10 Million/uL [facility] Hemoglobin 12.1 11.7 - 15.5 g/dL [facility] Hematocrit 36.6 35.0 - 45.0 % [facility] MCV 84.7 80.0 - 100.0 fL [facility] MCH 28.0 27.0 - 33.0 pg [facility] MCHC 33.1 32.0 - 36.0 g/dL [facility] RDW 13.4 11.0 - 15.0 % [facility] PLT 294 140 - 400 Thousand/u L [facility] MPV 11.1 7.5 - 12.5 fL [facility] Neutrophils # 4782 1500 - 7800 cells/uL [facility] Lymphocytes # 1905 850 - 3900 cells/uL [facility] Monocytes # 489 200 - 950 cells/uL [facility] Eosinophils # 88 15 - 500 cells/uL [facility] Basophils # 37 0 - 200 cells/uL [facility] Neutrophils % 65.5 % [facility] Lymphocytes % 26.1 % [facility] Monocytes % 6.7 % [facility] Eosinophils % 1.2 % [facility] Basophils % 0.5 % [facility] 08/31/2020 10:0 2 AM EDT 08/31/2020 4:10 PM EDT Narrative Resulting Agency Comment [id number] us Alva Vega NP LAB SAME DAY RESULT Final Resul t [facility] [address] [place] [address] * (ABNORMAL) BASIC METABOLIC PANEL WITH (GFR) (08/31/2020 10:02 AM EDT) Glucose 57(L) 65 - 99 mg/dL [facility] Comment:Fasting reference in terval Urea Nitrogen Blood (BUN) 8 7 - 25 mg/dL [facility] Creatinine 0.61 0.50 - 1.10 mg/dL [facility] EGFR 126 > OR = 60 mL/min/1. 73m2 [facility] GFR () 146 > OR = 60 mL/min/1. 73m2 [facility] BUN/Creatinine Ratio NOT APPLICABLE 6 - 22 (calc) [facility] Sodium 140 135 - 146 mmol/L [facility] Potassium 3.7 3.5 - 5.3 mmol/L [facility] Chloride 102 98 - 110 mmol/L [facility] Carbon dioxide 29 20 - 32 mmol/L [facility] Calcium 9.4 8.6 - 10.2 mg/dL [facility] 08/31/2020 10:0 2 AM EDT 08/31/2020 4:10 PM EDT Narrative [facility] - 08/31/2020 7:59 PM EDT Please note that this estimated GFR does not include an adjustment for the patient's height or weight, and can therefore, be viewed as reliable only for patients with heights between 60 and 72 . More precise quantification using a 24-hour urine sample or height-based algorithm is recommended for patients outside of this range of height and for those individuals with more precise needs for GFR calculation. Resulting Agency Comment [id number] Alva Vega NP LABORATORY Final Result [facility] [address] [place] [address] documented in this encounter Visit Diagnoses Diagnosis Preoperative examination Preoperative examination, unspecified Unwanted fertility Reserved for inherently not codable concepts WITHOUT codable children Iron deficiency anemia, unspecified iron deficiency anemia type documented in this encounter Care Teams Chemical Preparer Relationship Specialty Start Date End Date Scarlett Norris [address] [address] 10/30/17 documented as of this encounter
--- OUTSIDE RECORDS SUMMARY | 2024-12-06 13:57 | XMS_ITS | Clinical Summary ---
Author Organization [facility] Address [address] [place] [address] Care Team Providers Care Pipe Testing Technician Name Role Phone [facility] Primary [facility] Provider Allergies No known active allergies Medications * This document contains information received from the source organization and may not represent a complete record from that organization. metroNIDAZOLE (METROGEL) 0.75% vaginal gel Apply vaginally every night for 5 nights. 70 g 4 Active Active Problems Patient Care Coordination No te Formatting of this note migh t be different from the original. [facility] participant. Problem Noted Date Diagnosed Date Depression screening 07/11/2021 Encounter for cervical Pap smear with pelvic exa m 07/11/2021 6 weeks follow-up 07/11/2021 Screening for cervical cancer 07/03/2021 Disturbance Of Gait 01/02/2009 Resolved Problems Problem Noted Date Diagnosed Date Resolved Date 2 weeks follow-up 06/06/2021 07/11/2021 Depression screen 06/06/2021 07/11/2021 Encounter for elective induction of labor 05/22/2021 06/06/2021 Supervision of high risk francisca black multigravida in second trimester 12/04/2020 06/06/2021 History of abnormality in previous , currently 12/04/2020 06/06/2021 anomaly necessitating delivery 01/19/2019 11/08/2020 Overview (11/08/2020): Specialty Clinic UTD 2 Left pelvic kidney Will deliver at [facility]. Sub specialty providers NICU consult 01/07 Present at delivery: No Notify about admission: No Mode of Delivery t he patient is planned for vaginal delivery Date:01/19/2019 O K for operative vaginal delivery? YES T he gestational age at which delivery is planned: IOL at 39w5d GA Special Considerations A re there any special labs/tests that need to be collected before, during, or after delivery from mom or baby? NO A ny special equipment or materials required for delivery? NO A ny other special considerations? NO __maternal medications: None _N_continuous monitoring _N_avoid AROM _N_avoid internal monitors _N_avoid: misoprostol/pitocin/cervical [place] Evaluation: After , the s condition will be evaluated by the following: _Y_Ultrasound of: bladder and kidneys at 48 hours of life Form completed by: Mitali Aleman PGY2 MFM Attending: Dr. Corral Please Notify Referring MD of Delivery___Genoveva Amos CNM Courtesy notice to subspecialist: Pediatric urology, Dr. Lee Encounter for induction of labor 01/19/2019 11/08/2020 Supervision of other normal , antepartum 08/06/2018 11/08/2020 Overview (10/25/2020): Provider Name: CNM - OB1 Scheduled with Yahir Johnson 08/10/18 Date of OB Nurse Visit: 08/06/2018 P:1 LMP: Patient's LMP from OB Dating Form was 04/09/2018. 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 10/28 - concern for disease progression. Plan is for transfer to [facility] specialties clinic. ALLERGIES: Review of patient's allergies indicates no known allergies. Genetic Testing? Cystic Fibrosis: Patient declined this test. Sequential Screening: Patient declined this test. QNatal: Patient does not have any risk factors. Patient with echogenic foci on US. 09/04/18 PA for qnatal submitted via [facility] provider portal. Awaiting response. Patient does not want this testing. Will no longer process PA due to this. MSAFP: Declines Amniocentesis: declines Is this an IVF ? No Labs: First Trimester: Rubella: Immune RPR: NR HIV: NR Hep B: NR Varicella : Immune ABO/ Rh: O Positive HCT: 32.8 (L) PLT: 246 Second Trimester: Glucose: Hct: Third Trimester: GBS: Vaccines: Influenza: yes, 2018 TDaP: Information given and discussed Date TDaP Given: Reviewed Zika Virus precautions with patient including high-risk travel and the use of mosquito repellant, long-sleeved shirts, etc. when outside. Ultrasounds: First US: 08/04/18 - SLIUP, 15w 5d with EDC of 01/21/19 Anatomy US: 08/25/18 US IMPRESSION: Abnormal. There is a left intracardiac echogenic focus (EIF). The left renal fossa appears empty and there is a suggestion of a possible dysplastic left pelvic kidney versus echogenic bowel. The fetus is appropriately grown with normal fluid. There is a funic presentation as the umbilical cord is presenting with the fetus in variable lie. The placenta is anterior with normal cord insertion. An EIF increases the risk for aneuploidy and the patient has declined aneuploidy screening, therefore her age risk cannot be adjusted. Additionally, this is not an isolated finding as there appears to be a renal abnormality as well. RECOMMENDATIONS: F/U MFM US and consult recommended. Cell free DNA screening should be considered prior to her f/u US with MFM. US cannot diagnose or exclude aneuploidy. This is a remote scan, therefore this was not discussed with the patient. 09/24/18: ABNORMAL: kidney - left renal fossa is empty. 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 The right kidney is present in the correct anatomic position, though is enlarged with AP diameter 20 mm (90%ile) and length of 34.6 mm (100%ile). The collecting system is also mildly dilated on this side with an AP diameter of 4.5 mm. One of the calyces in the upper pole seems dilated, but there no other peripheral calyceal dilation, cortical thinning, cortical echogenicity, hydroureter or ureteroceles. Echogenic intracardiac focus (EICF) IMPRESSION: Abnormal ASSESSMENT/RECOMMENDATIONS: The patient was referred for a detailed anatomy survey due to an echogenic intracardiac focus and suspected left pelvic kidney on a level 1 anatomy survey. She declined aneuploidy screening. On today's scan, the biometry is consistent with established dates with an estimated weight of 605 g which is at the 69th percentile by the Hadlock growth curve. There are renal abnormalities as outlined above. The amniotic fluid level is normal by MVP criteria. The echogenic intracardiac focus is again seen. Please see MFM consultation below for details of patient counseling and recommendations for follow up. 10/26/2018ABNORMAL: Echogenic intracardiac focus (EICF) Left kidney - empty left renal fossa. Reniform structure in the pelvis behind the bladder and just to the left of midline presumed to be left pelvic kidney. Cortex is echogenic. Single cystic structure measuring 5.3 mm in diameter which could represent the left renal pelvis, though the eccentric location on the lower edge suggests it may be a cyst in the cortex. Overall dimensions are small with length of 22.7 mm (<1%) and AP diameter of 16.2 mm (9%). No evidence of hydroureter. Right kidney - overall enlarged with length of 47.7 mm (>99%) and AP diameter of 29.6 mm (>99%) and dilated renal pelvis at 6.9 mm. There is some peripheral calyceal dilation as well. The cortex is not echogenic or thinned. There is no hydroureter or evidence of ureterocele. The peripheral calyceal dilation make this UTD-A2, or higher risk of uropathy. IMPRESSION: Abnormal ASSESSMENT/RECOMMENDATIONS: This patient was referred for a follow-up scan in the setting of an EICF and left pelvic kidney seen at the time of her anatomy survey. Furthermore, there was UTD-A1 pyelectasis on the right side at that time. She has had an otherwise normal anatomic survey previously and declined aneuploidy screening. The estimated weight is normal at 1212 g, which is at the 67th percentile by the Hadlock growth curve. The amniotic fluid is also normal by MVP criteria. The EICF is still visible. There is some interval change in the appearance of the kidneys with continued enlarged size of the right kidney, persistent dilation of the pelvis, but now also with some peripheral calyceal dilation as well. The presumed left renal kidney now appears mostly echogenic with a single cystic structure that could be a collecting system or, more likely, a cortical cyst. Enlargement of the right kidney suggests hypertrophy in response to a non-functional left kidney which is likely due to multicystic dysplastic kidney or obstructive uropathy on this size (favor multicystic dysplastic based on prior observation of mutliple non-communicating cysts on her prior scan). At this time there remains normal overall renal function based on the presence of normal fluid, but based on some evidence of progression in the findings in the presumed single functioning kidney, this fetus will need to be monitored closely to ensure we preserve right renal function. This may require early delivery if fluid levels start to decline so that any obstruction or reflux could be addressed. Due to the level of monitoring and coordination of care needs for this fetus, I suggest a transfer of care to Specialties Clinc at [facility]. Gender: Does patient prefer to know gender? Yes, its a boy! Abdominal pain 02/01/2013 12/04/2020 Immunizations Immunization Administration Dates Next Due Influenza, Injectable, Quadr ivalent, Preservative Free 01/17/2021,12/31/2018 Measles, Mumps, and Rubella Vaccine 05/24/2021(D eferred: No longer needed) Tetanus Toxoid, Reduced Diph theria Toxoid, and Acellular Pertussis Vaccine, Adsorbed 02/28/2021,12/31/2018 Family History Medical History Relation Name Comments Asthma Brother Cancer Maternal Grandmother unknown type Diabetes Mother Cancer Mother's Sister unknown Single kidney Son Breast cancer Neg Hx Colon cancer Neg Hx Hypertension Neg Hx Ovarian cancer Neg Hx Uterine cancer Neg Hx Relation Name Status Comments Brother Alive Father Alive Maternal Grandmother Mother Alive Mother's Sister Alive Son Alive Social History Tobacco Use Types Packs/Day Years Used Date Smoking Tobacco: Never Smokeless Tobacco: Never Tobacco Cessation:Counseling Given: Not Answered Comments:: Alcohol Use Standard Drinks/Week Comments Never 0 (1 standard drink = 0.6 oz pur e alcohol) Comments No Sex and Gender Information Value Date Recorded Sex Assigned at Female 12/03/2020 8:18 AM EDT Legal Sex Female 8:31 AM EDT Gender Identity Female 12/03/2020 8:18 AM EDT Sexual Orientation Straight 12/03/2020 8: 18 AM EDT Last Filed Vital Signs Vital Sign Reading Time Taken Comments Blood Pressure 100/84 04/11/2022 9:23 AM EST Pulse 62 05/25/2021 4:20 PM EDT Temperature 36.5 C (97.7 F) 05/25/2021 3:20 PM EDT Respiratory Rate 17 05/25/2021 4:20 PM EDT Oxygen Saturation 98% 05/25/2021 4:20 PM EDT Inhaled Oxygen Concentration - - Weight 68 kg (150 lb) 04/11/2022 9:23 AM EST Height 162.6 cm (5' 4 ) 04/11/2022 9:23 AM EST Body Mass Index 25.75 04/11/2022 9:23 AM EST Plan of Treatment Health Maintenance Due Date Last Done Comments Hepatitis C Screening 1995 Varicella Vaccines (1 of 2 - 13+ 2-dose series) 08/09/2008 Hepatitis B Vaccines (1 of 3 - 19+ 3-dose series) 08/09/2014 Alcohol/Substance Use Screening 03/03/2024 Depression Screening and Follow-Up 03/03/2024 Social Drivers of Health Annual Screening 03/03/2024 COVID-19 Vaccine ( - season) 2024 Influenza Vaccine (#1) 2024 01/17/2021, 2018 Pap Smear 04/11/2025 04/11/2022, 07/11/2021 DTaP,Tdap,and Td Vaccines (5 - Td or Tdap) 02/28/2031 02/28/2021, 04/07/2020, 12/31/2018, Additional history exists RSV Vaccine (60+ years old and patients) (1 - 1-dose 75+ series) 08/09/2070 HIV Screening Completed 01/17/2021, 12/31/2018 Pneumococcal Vaccine: Pediatric (0-5 Years) and At-Risk Patients (6-50 Years) Aged Out No longer eligible based on patient's age to complete this topic Procedures * Due to [place] state law, this organization might not be sharing negative HIV tests. Procedure Name Priority Date/Time Associated Diagnosis Comments PAP Routine 04/11/2022 10:09 AM EST Cervical cancer screening from Last 3 Months or Most Recently Relevant to Health Maintenance Results * Due to [place] state law, this organization might not be sharing negative HIV tests. * Pap (04/11/2022 10:09 AM EST) Specimen Adequacy Satisfactory for evaluation [facility] MANUAL 3 3:53 PM EDT [employer] [facility] Pathologist Cytology Interpretation Negative for intraepithelial lesion or malignancy. [facility] MANUAL 3 3:53 PM EDT [employer] [facility] at 1553 EDT Comment:This is the result o f a morphological screening test with an inherent possibility of a false negative interpretation. Real Estate Legal Assistant Statement This Pap test was examined by the [facility], [place], [place], [place]. This Pap test was examined in accordance with the [facility] Cytopathology Laboratory written policy, which incorporates all CLIA mandates. Current screening guidelines can be found in [place]: A Cancer Journal for Clinicians 2020;70:321-346. Current ASCCP management guidelines for abnormal Pap tests are published in the Journal Lower Genital Tract Disease Volume 2020;24:102-131. [facility] MANUAL 3 3:53 PM EDT [employer] [facility] ANATOMIC PATHOLOGY LABORATORY Clinical History REPEAT PAP [facility] MANUAL 3 3:53 PM EDT [employer] [facility] Resulting Agency Case was signed out at [facility], Department of Pathology, [employer] 3 CLIA [id number] [facility] MANUAL 3 3:53 PM EDT [employer] [facility] Report Header Gynecologic Cytology Report Case: [id number] Authorizing Provider: ELODIA Mayo Collected: 04/11/2022 1009 Ordering Location: [facility] Received: 04/11/[address] [facility] First Screen: Melisa Perkins Rescreen: January Mera Specimen: Screening ThinPrep Pap, Cervix/Endocervix 3 3:53 PM EDT [employer] Brushing Cervix uteri structure / Unknown Non-Blood Collection / Unknown 04/11/2022 10:09 AM EST 04/11/2022 11:33 AM EST us Annet[facility] PATHOLOGY/CYTOLOGY ORDERABL ES Final Result [facility] [address] [place] [id number], from Last 3 Months or Most Recently Relevant to Health Maintenance Insurance [facility] MEDICAID Advance Directives * Full Code (Latest Code Status on File) Date Activated Date Inactivated Comments 05/23/2021 1:40 AM 05/25/2021 8:52 PM * Full Code Date Activated Date Inactivated Comments 01/20/2019 3:37 AM 01/22/2019 8:34 PM Care Teams Pipe Testing Technician Relationship Specialty Start Date End Date [facility] [address] [place] [address] PCP - General Family Medicine 01/19/19
--- OUTSIDE RECORDS SUMMARY | 2024-12-06 13:57 | XMS_ITS | Clinical Summary ---
Author Organization [facility] Address [address] [place] [address] Care Team Providers Care Host/Hostess Ground Name Role Phone Unavailable Primary Care Provider Unavailabl e Social History Tobacco Use Types Packs/Day Years Used Date Smoking Tobacco: Never Assessed Comments Unknown Sex and Gender Information Value Date Recorded Sex Assigned at Not on file Legal Sex Female 4:51 AM EST Gender Identity Not on file Sexual Orientation Not on file Plan of Treatment Health Maintenance Due Date Last Done Comments DTaP,Tdap,and Td Vaccines (1 - Tdap) 08/09/2014 Hepatitis B Vaccines (1 of 3 - 19+ 3-dose series) 08/09/2014 Cervical Cancer Screening: P ap Smear 08/09/2016 HPV Vaccines (1 - 3-dose SCD M series) 08/09/2022 Depression Screening 03/03/2024 COVID-19 Vaccine ( - 2023-2 5 season) 2024 Influenza Vaccine (#1) 2024 RSV Immunization Adult Patie nts (1 - 1-dose 75+ series) 08/09/2070 HIB Vaccines Aged Out No longer eligi ble based on patient's age to complete this topic Hepatitis A Vaccines Aged Out No long er eligible based on patient's age to complete this topic IPV Vaccines Aged Out No longer eligi ble based on patient's age to complete this topic MMR Vaccines Aged Out No longer eligi ble based on patient's age to complete this topic Meningococcal ACWY Vaccine Aged Out N o longer eligible based on patient's age to complete this topic Meningococcal B Vaccine Aged Out No l onger eligible based on patient's age to complete this topic Pneumococcal Vaccine: Pediat rics (0 to 5 Years) and At-Risk Patients (6 to 49 Years) Aged Out No longer eligible b ased on patient's age to complete this topic RSV Immunization Patients Un bryson 20 months Aged Out No longer eligible b ased on patient's age to complete this topic Varicella Vaccines Aged Out No longer eligible based on patient's age to complete this topic
--- OUTSIDE RECORDS SUMMARY | 2024-12-06 13:57 | XMS_ITS | Clinical Summary ---
Author Organization [facility] Address [address] [place] [address] Care Team Providers Care Infrastructure Manager Name Role Phone Unavailable Primary Care Provider Unavailabl e Allergies No known active allergies Medications Ibuprofen (ADVIL,MOTRIN) 200 MG tablet Take 200 mg by mouth every 6 (six) hours if needed for mild pain Active Active Problems Problem Noted Date Diagnosed Date Papanicolaou smear 06/03/2017 Overview (06/26/2020): 06/03/17 PAP LGSIL. Plan - rpt pap PP. On recall list. 04/17/18 Post pap - ASCUS, HPV negative Plan: Repeat pap smear in 1 year. 12/02/2019- Pap-LSIL- Colposcopy needed 02/23/20 - colpo normal; no bx taken Needs repeat pap 12/2020 Resolved Problems Problem Noted Date Diagnosed Date Resolved Date History of anomaly in prior , currently ([facility]) 12/23/2019 06/26/2020 Supervision of normal ([facility]) 11/10/2019 06/26/2020 Overview (05/16/2020): Provider Name: Ayanna Date of OB Nurse Visit: 11/10/2019 P:2 LMP: Patient's last menstrual period was 08/08/2019. Patient is . 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 Since the system is routinely examined during the anatomy survey, no change to routine practice is needed for screening. Taking gummy PNV, encouraged OTC iron use d/t closely spaced pregnancies and gummy PNV has no iron - Schedule PPV with MD as pt would like to discuss tubal ligation Would like permanent sterilization after this ALLERGIES: Patient has no known allergies. Genetic Testing? Cystic Fibrosis: Patient will check with insurance and will call back if desired. Sequential Screening: Patient will check with insurance and will call back if desired. QNatal: Patient will check with insurance and will call back if desired. MSAFP: Amniocentesis: no Is this an IVF ? No Labs: First Trimester: Rubella IMM RPR NR HIV NR Hep B NR Hep C NR Varicella IMM ABO/ Rh O POS HCT 31.4 - vitron c PLT 266 Second Trimester: Glucose: 110 Hct: 29.3 Third Trimester: GBS: RPR/Syphilis: Vaccines: Influenza: yes TDaP: Information given and discussed Date TDaP Given:04/07/20 Reviewed Zika Virus precautions with patient including high-risk travel and the use of mosquito repellant, long-sleeved shirts, etc. when outside. Ultrasounds: First US: 11/04/19 - RECOMMENDATIONS:SIUP at 12+4 weeks, SATISH 05/14/2020. FHR 153 Follow up plan per ordering provider. 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 Plan is for transfer to [facility] specialties clinic. ALLERGIES: Review of patient's allergies indicates no known allergies. Genetic Testing? Cystic Fibrosis: Patient declined this test. Sequential Screening: Patient declined this test. QNatal: Patient does not have any risk factors. Patient with echogenic foci on US. 09/04/18 PA for qnatal submitted via [facility] provider portal. Awaiting response. Patient does not want this testing. Will no longer process PA due to this. MSAFP: Declines Amniocentesis: declines Is this an IVF ? No Labs: First Trimester: Rubella: Immune RPR: NR HIV: NR Hep B: NR Varicella : Immune ABO/ Rh: O Positive HCT: 32.8 (L) PLT: 246 Second Trimester: Glucose: Hct: Third Trimester: GBS: Vaccines: Influenza: yes, 2017 TDaP: Information given and discussed Date TDaP [...] transfer of care to Special[facility] Cl[facility] at [facility]. Gender: Does patient prefer to know gender? Yes, its a boy! Supervision of normal ([facility]) 04/29/2017 08/06/2018 Overview (12/24/2017): Provider Name: OB1 Padmini Hamilton CNM 05/15/17 Date of OB Nurse Visit: 04/28/2017 P:0 LMP: Patient's LMP from OB Dating Form was 02/26/2017. EDC: 12/03/17 per sure LMP Final EDC: 12/19 by 8 week US FOB: Leonardo Relevant OB Problems: Care coordination referral: Housing - live with her parents, new relationship x 6 months Pt needs Pap PP -needs heartbeat animal NV (pt has heart, just needs stuffed animal) IOL scheduled 12/31, ripening 12/30, post dates testing 12/29 w efw and REO ALLERGIES: Review of patient's allergies indicates no known allergies. Genetic Testing? Cystic Fibrosis: Patient will check with insurance and will call back if desired. Sequential Screening: Patient will check with insurance and will call back if desired. QNatal: Patient does not have any risk factors. MSAFP: Amniocentesis: declines Is this an IVF ? No Labs: First Trimester: 04/28/17 Rubella: Immune RPR: NR HIV: NR Hep B: NR Varicella: Immune ABO/ Rh: O Positive Second Trimester: 10-03-17 Glucose: 89 Hct: 28.8 - FE BID Third Trimester: GBS: Obtained [facility] 11/17/17 Negative Vaccines: Influenza: no TDaP: Information given and discussed Date TDaP Given:10/03/17 Reviewed Zika Virus precautions with patient including high-risk travel and the use of mosquito repellant, long-sleeved shirts, etc. when outside. Ultrasounds: First US: 05/09/17: IMPRESSION: Normal Viable IUP with EDC 12-19-2017 by today's ultrasound not cw LMP Anatomy US: 07/11/17 US anatomy Normal Gender: Does patient prefer to know gender? It's a gril! Immunizations Immunization Administration Dates Next Due Influenza,injectable,quad,Prsrv Fr 01/17/2021, Tdap 02/28/2021,,12/31/2018,10/04/19 18 Family History Medical History Relation Name Comments Asthma Brother 1 Cancer (?Type) Maternal grandmother No Known or Significant Medical History Paternal grand father No Known or Significant Medical History Paternal grand mother Relation Name Status Comments Brother 1 Alive Brother 2 Alive Father Alive Maternal grandfather Alive Maternal grandmother Mother Alive Paternal grandfather Paternal grandmother Social History Tobacco Use Types Packs/Day Years Used Date Smoking Tobacco: Never Smokeless Tobacco: Never Alcohol Use Standard Drinks/Week Comments No 0 (1 standard drink = 0.6 oz pur e alcohol) Intimate Partner Violence Answer Date R ecorded Fear of Current or Ex-Partner Not on file Emotionally Abused Not on file 10/24/2022 Physically Abused Not on file 10/24/2022 Sexually Abused Not on file 10/24/2022 Feel Safe at Home Not on file 10/24/2022 Comments No Sex and Gender Information Value Date Recorded Sex Assigned at Female 07/12/2021 8:30 AM EDT Legal Sex Female 9:09 AM EST Gender Identity Female 07/12/2021 8:30 AM EDT Sexual Orientation Not on file 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 Not on file Not on file Not on file Last Filed Vital Signs Vital Sign Reading Time Taken Comments Blood Pressure 100/68 08/31/2020 10:47 AM EDT Pulse 72 08/31/2020 9:25 AM EDT Temperature 36.2 C (97.1 F) 08/31/2020 9:25 AM EDT Respiratory Rate - - Oxygen Saturation - - Inhaled Oxygen Concentration - - Weight 62.1 kg (137 lb) 08/31/2020 10:47 AM EDT Height 162.6 cm (5' 4 ) 08/31/2020 10:47 AM EDT Body Mass Index 23.52 08/31/2020 10:47 AM EDT Plan of Treatment Health Maintenance Due Date Last Done Comments Hep B (1 of 3 - 19+ 3-dose series) 08/09/2014 Pap Smear 12/01/2022 12/02/2019, 04/03, 05/30/2017 COVID-19 Vaccine ( season) 2024 Influenza (#1) 2024 01/17/2021, 12/31/2018 DTaP/Tdap/Td (5 - Td or Tdap) 02/28/2031 02/28/2021, 04/07/2020, 12/31/2018, Additional history exists Zoster (Shingrix) (1 of 2) 08/09/2045 RSV (1 - 1-dose 75+ series) 08/09/2070 Chlamydia Discontinued 12/02/2019, 08/01, 04/17/2018, Additional history exists Hepatitis C Screening Completed 12/02/2019 HPV Vaccine (No Doses Required) Completed Hep A Aged Out No longer eligi ble based on patient's age to complete this topic Hib Aged Out No longer eligi ble based on patient's age to complete this topic Meningococcal ACWY Aged Out No longer eligible based on patient's age to complete this topic Pneumococcal Aged Out No longer eligi ble based on patient's age to complete this topic Procedures * Due to [place] [employer] law, this organization might not be sharing negative HIV tests. Procedure Name Priority Date/Time Associated Diagnosis Comments THINPREP TIS PAP REFLEX HPV MRNA E6/E7, CHLAMYDIA/N.GONORRHO EAE Routine 12/02/2019 2:44 PM EDT Encounter for gynecological examination without abnormal finding VENIPUNCTURE Routine 12/02/2019 1:40 PM EDT , unspecified gestational age from Last 3 Months or Most Recently Relevant to Health Maintenance Results * Due to [place] [employer] law, this organization might not be sharing negative HIV tests. * (ABNORMAL) THINPREP TIS PAP REFLEX HPV MRNA E6/E7, CHLAMYDIA/N.GONORRHOEAE (12/02/2019 2:44 PM EDT) Clinical information [id number] [facility] Date last menstrual period [facility] [...] evaluated with computer assisted technology. [facility] Fill Manager (Cvx/Vag) GSG, CT(ASCP) CT screening location: [place] [id number] [facility] Pathologist (Cvx/Vag) Tiara Lolyd M.D.,PhD, Board Certified in Anatomic and Clinical Pathology and Cytopathology (electronic signature) Consulting Pathologist [facility] Pathology [address] [place] [address] [facility] COMMENT SEE NOTE [facility] Comment: EXPLANATORY NOTE: The Pap is a [...] Chlamydia trachomatis rRNA NOT DETECTED NOT DETECTED [facility] Neisseria Gonorrhoeae rRNA NOT DETECTED NOT DETECTED [facility] COMMENT SEE NOTE [facility] Comment: The analytical performance characteristics of this assay, when used to test SurePath(TM) specimens have been determined by [facility]. The modifications have not been cleared or approved by the FDA. This assay has been validated pursuant to the CLIA regulations and is used for clinical purposes. For additional information, please refer to https://education.Funderbeam/faq/OBX050 (This link is being provided for information/ educational purposes only.) Cervical 12/02/2019 2:44 PM EDT 12/03/2019 5:53 AM EDT Narrative Resulting Agency Comment [id number] Mihir Marcus NP PATHOLOGY-INTERFACED Final Res ult [facility] [address] [place] [address] * HEPATITIS C AB WITH REFLEX TO RNA PCR, SERUM (12/02/2019 1:40 PM EDT) Hepatitis C virus Ab NON-REACT SHERMAN NON-REACT SHERMAN [facility] Hepatitis C virus Ab Signal/Cutoff 0.01 <1.00 [facility] Comment: HCV antibody was non-reactive. There is no laboratory evidence of HCV infection. In most cases, no further action is required. However, if recent HCV exposure is suspected, a test for HCV RNA (test code 50876) is suggested. For additional information please refer to http://education.Funderbeam/faq/PIJ97r6 (This link is being provided for informational/ educational purposes only.) 12/02/2019 1:40 PM EDT 12/02/2019 11:36 PM EDT Narrative Resulting Agency Comment [id number] Gisselle JOHNS [facility]ORAT[facility] Final Resu lt [facility] [address] [place] [address] from Last 3 Months or Most Recently Relevant to Health Maintenance Insurance [address] [place] [id number] MEDICAID Care Teams Infrastructure Manager Relationship Specialty Start Date End Date Scarlett Norris [facility] [address] [place] [phone] 10/30/17
--- OUTSIDE RECORDS SUMMARY | 2024-12-06 13:57 | XMS_ITS | Encounter Summary ---
Author Organization [facility] Address [address] [place] [address] Care Team Providers Care Software Quality Tester Name Role Phone Unavailable Primary Care Provider Unavailabl e Encounter Details Date Type Department Care Team (Late st Contact Info) Description 08/06/2018 Orders Only [facility] MANAGER AUTOMOTIVE [address] [facility] [address] [place] [address] Anne Johnson CNM Social History Tobacco Use [...] as of this encounter Progress Notes * Barry Smith - 08/11/2018 12:13 PM EDT To provider for review Results noted on the problem list * Harriett Chan, RN - 08/07/2018 9:03 AM EDT Awaiting all labs documented in this encounter Plan of Treatment Not on file documented as of this encounter Procedures * Due to [place] [employer] law, this organization might not be sharing negative HIV tests. Procedure Name Priority Date/Time Associated Diagnosis Comments 1 PROFILE WITH VZV Routine 08/06/2018 2:28 PM EDT Supervision of other normal , antepartum CULTURE, URINE, ROUTINE Routine 08/06/2018 2:28 PM EDT Urine frequency URINALYSIS, COMPLETE INCLUDES DIPSTICK AND MICROSCOPIC Routine 08/06/2018 2:28 PM EDT Urine frequency documented in this encounter Results * Due to [place] [employer] law, this organization might not be sharing negative HIV tests. * CULTURE, URINE, ROUTINE (08/06/2018 2:28 PM EDT) Bacteria culture (Urine) SEE NOTE [facility] Comment: CULTURE, URINE, ROUTINE MICRO NUMBER: [id number] TEST STATUS: FINAL SPECIMEN SOURCE: URINE, CLEAN CATCH SPECIMEN QUALITY: ADEQUATE RESULT: No Growth 08/06/2018 2:28 PM EDT 08/06/2018 11:41 PM EDT Narrative Resulting Agency Comment [id number] Anne Johnson CNM LABORATORY Final Result Performing Organization Address City/State/[facility] Co de Phone Number [facility] [address] [place] [address] * (ABNORMAL) URINALYSIS, COMPLETE INCLUDES DIPSTICK AND MICROSCOPIC (08/06/2018 2:28 PM EDT) Color (Urine) DARK [facility]LLOW [facility] Appearance (Urine) CLEAR CLEAR [facility] Specific gravity (Urine) 1.026 1.001 - 1.035 [facility] pH (Urine) 7.0 5.0 - 8.0 [facility] Glucose (Urine) [...] = 5 /HPF [facility] Bacteria (Urine) FEW(A) NONE SEEN /HPF [facility] Hyaline casts (Urine sed) NONE SEEN NONE SEEN /LPF [facility] 08/06/2018 2:28 PM EDT 08/06/2018 11:41 PM EDT Narrative Resulting Agency Comment [id number] Anne JOHNS LAB SAME DAY RESULT Final Resul t [facility] [address] [place] [address] * (ABNORMAL) 1 PROFILE WITH VZV (08/06/2018 2:28 PM EDT) WBC 10.9(H) 3.8 - 10.8 Thousand /uL [facility] RBC 3.68(L) 3.80 - 5.10 Million/ uL [facility] Hemoglobin 11.3(L) 11.7 - 15.5 g/dL [facility] Hematocrit 32.8(L) 35.0 - 45.0 % [facility] MCV 89.1 80.0 - 100.0 fL [facility] MCH 30.7 27.0 - 33.0 pg [facility] MCHC 34.5 32.0 - 36.0 g/dL [facility] RDW 14.1 11.0 - 15.0 % [facility] PLT 246 140 - 400 Thousand /uL [facility] MPV 10.7 7.5 - 12.5 fL [facility] Neutrophils # 8905(H) 1500 - 7800 cells/uL [facility] Lymphocytes # 1548 850 - 3900 cells/uL [facility] Monocytes # 392 200 - 950 cells/uL [facility] Eosinophils # 11(L) 15 - 500 cells/uL [facility] Basophils # 44 0 - 200 cells/uL [facility] Neutrophils % 81.7 % [facility] Lymphocytes % 14.2 % [facility] Monocytes % 3.6 % [facility] Eosinophils % 0.1 % [facility] Basophils % 0.4 % [...] NON-REAC TIVE [facility] Rubella virus Ab.IgG 2.88 index [facility] Comment: Index Interpretation ----- <0.90 Not consistent with Immunity 0.90-0.99 Equivocal > or = 1.00 Consistent with Immunity The presence of rubella IgG antibody suggests immunization or past or current infection with rubella virus. Glucose 78 65 - 99 mg/dL [facility] Comment:Fasting reference in terval Varicella zoster virus Ab.IgG 191.80 index [facility] Comment: Index Interpretation --------- [...] Varicella Zoster Virus Antibody Immunity Screen, ACIF. 08/06/2018 2:28 PM EDT 08/06/2018 11:41 PM EDT Narrative Resulting Agency Comment [id number] Anne Johnson CNM LABORATORY Final Result [facility] [address] [place] [address] documented in this encounter Visit Diagnoses Diagnosis Supervision of other normal , antepartum ([facility]) Urine frequency Urinary frequency Screening for HIV (human immunodeficiency virus) Special screening examination for other specified viral diseases documented in this encounter Care Teams Software Quality Tester Relationship Specialty Start Date End Date Scarlett Norris [address] [address] 10/30/17 documented as of this encounter
--- OUTSIDE RECORDS SUMMARY | 2024-12-06 13:57 | XMS_ITS | Encounter Summary ---
Author Organization [facility] Address [address] [place] [address] Care Team Providers Care Body Component Engineer Name Role Phone Padmini Hamilton CNM Unavailable Unavailable Encounter Details Date Type Department Care Team (Late st Contact Info) Description 10/03/2017 Orders Only [facility] CREW DISPATCHER [address] [facility] [address] [place] [address] Malka Amos CNM Social History Tobacco Use [...] Notes * Sherlyn Perry LVN LPN - 10/07/2017 11:48 AM EDT Pt is aware of results and rx for FE sent to pharmacy. Reviewed OB dept protocol w/pt for anemia. See 10-07-17 TM. On problem list, to provider documented in this encounter Plan of Treatment Not on file documented as of this encounter Procedures * Due to [place] state law, this organization might not be sharing negative HIV tests. Procedure Name Priority Date/Time Associated Diagnosis Comments CBC INCLUDES DIFFERENTIAL AND PLATELET COUNT Routine 10/03/2017 9:12 AM EDT Encounter for supervision of normal first in second trimester GLUCOSE, 1 HR GESTATIONAL SCREEN (50G CHALLENGE) Routine 10/03/2017 9:12 AM EDT Encounter for supervision of normal first in second trimester documented in this encounter Results * Due to [place] [employer] law, this organization might not be sharing negative HIV tests. * (ABNORMAL) CBC INCLUDES DIFFERENTIAL AND PLATELET COUNT (10/03/2017 9:12 AM EDT) WBC 11.6(H) 3.8 - 10.8 Thousand/u L [facility] RBC 3.19(L) 3.80 - 5.10 Million/uL [facility] Hemoglobin 9.6(L) 11.7 - 15.5 g/dL [facility] Hematocrit 28.8(L) 35.0 - 45.0 % [facility] MCV 90.3 80.0 - 100.0 fL [facility] MCH 30.1 27.0 - 33.0 pg [facility] MCHC 33.3 32.0 - 36.0 g/dL [facility] RDW 12.1 11.0 - 15.0 % [facility] PLT 226 140 - 400 Thousand/u L [facility] MPV 9.7 7.5 - 12.5 fL [facility] Neutrophils # 9628(H) 1500 - 7800 cells/uL [facility] Lymphocytes # 1322 850 - 3900 cells/uL [facility] Monocytes # 603 200 - 950 cells/uL [facility] Eosinophils # 23 15 - 500 cells/uL [facility] Basophils # 23 0 - 200 cells/uL [facility] Neutrophils % 83 % [facility] Lymphocytes % 11.4 % [facility] Monocytes % 5.2 % [facility] Eosinophils % 0.2 % [facility] Basophils % 0.2 % [facility] 10/03/2017 9:12 AM EDT 10/03/2017 9:37 PM EDT Narrative Resulting Agency Comment [id number] Malka JOHNS LAB SAME DAY RESULT Final Re sult [facility] [address] [place] [address] * GLUCOSE, 1 HR GESTATIONAL SCREEN (50G CHALLENGE) (10/03/2017 9:12 AM EDT) Glucose^1H post 50 g glucose PO 89 <135 mg/dL [facility] 10/03/2017 9:12 AM EDT 10/03/2017 9:37 PM EDT Narrative Resulting Agency Comment [id number] Malka Amos CNM LABORATORY Final Result Performing Organization Address [facility] Co de Phone Number [facility] [address] [place] [address] documented in this encounter Visit Diagnoses Diagnosis Encounter for supervision of normal first in second trimester ([facility]) Supervision of normal first documented in this encounter Care Teams Body Component Engineer Relationship Specialty Start Date End Date Padmini Hamilton CNM Certified Registered Nurse Anesthetist Certified Nurse Certified Registered Nurse Anesthetist 05/02/17 10/29/17 Scarlett Norris [address] [address] 10/30/17 documented as of this encounter
--- OUTSIDE RECORDS SUMMARY | 2024-12-06 13:57 | XMS_ITS | Encounter Summary ---
Author Organization [facility] Address [address] [place] [address] Care Team Providers Care Dive Superintendent Name Role Phone Unavailable Primary Care Provider Unavailabl e Encounter Details Date Type Department Care Team (Late st Contact Info) Description 07/22/2018 Orders Only [facility] PRINTED CIRCUIT PHOTOGRAPHER [address] [facility] [address] [place] [address] Anne Johnson CNM Social History Tobacco Use [...] on file documented as of this encounter Results * Due to [place] state law, this organization might not be sharing negative HIV tests. * CULTURE, URINE, ROUTINE (08/06/2018 2:28 PM EDT) Bacteria culture (Urine) SEE NOTE [facility] Comment: CULTURE, URINE, ROUTINE MICRO NUMBER: [id number] TEST STATUS: FINAL SPECIMEN SOURCE: URINE, CLEAN CATCH SPECIMEN QUALITY: ADEQUATE RESULT: No Growth 08/06/2018 2:28 PM EDT 08/06/2018 11:41 PM EDT Narrative Resulting Agency Comment [id number] [facility] LABORATORY Final Result Performing Organization Address [facility] de Phone Number [facility] [address] [place] [address] * (ABNORMAL) URINALYSIS, COMPLETE INCLUDES DIPSTICK AND [...] 11:41 PM EDT Narrative Resulting Agency Comment [id number] [facility] LAB SAME DAY RESULT Final Resul t Performing Organization Address [facility] de Phone Number [facility] [address] [place] [address] * (ABNORMAL) 1 PROFILE WITH VZV (08/06/2018 [...] 11:41 PM EDT Narrative Resulting Agency Comment [id number] Anne Johnson CNM LABORATORY Final Result Performing Organization Address City/State/[facility] Co de Phone Number [facility] [address] [place] [address] documented in this encounter Visit Diagnoses Diagnosis Supervision of other normal , antepartum ([facility]) Urine frequency Urinary frequency Screening for HIV (human immunodeficiency virus) Special screening examination for other specified viral diseases documented in this encounter Care Teams Dive Superintendent Relationship Specialty Start Date End Date Scarlett Norris [address] [address] 10/30/17 documented as of this encounter
--- OUTSIDE RECORDS SUMMARY | 2024-12-06 13:57 | XMS_ITS | Encounter Summary ---
Author Organization [facility] Address [address] [place] [address] Care Team Providers Care Outpatient Physical Therapist Name Role Phone Unavailable Primary Care Provider Unavailabl e Encounter Details Date Type Department Care Team (Late st Contact Info) Description 11/10/2019 Orders Only [facility] DRESSMAKER HELPER [address] [place] [address] Gisselle Urena CNM [address] [place] [address] Social History Tobacco Use Types Packs/Day Years [...] AM EDT Sexual Orientation Not on file COVID-19 Exposure Response Date Recorded In the last month, have you been in contact with someone who was confirmed or suspected to have Coronavirus / COVID-19? No / Unsure 11/10/2019 11:17 AM EDT documented as of this encounter Plan of Treatment Not on file documented as of this encounter Results * Due to [place] state law, this organization might not be sharing negative HIV tests. * HEPATITIS C AB WITH REFLEX TO [...] a test for HCV RNA (test code 85776) is suggested. For additional information please refer to http://education.[employer]/faq/NJB81g2 (This link is being provided for informational/ educational purposes only.) 12/02/2019 1:40 PM EDT 12/02/2019 11:36 PM EDT Narrative Resulting Agency Comment [id number] Gisselle Urena [facility] Final Resu lt Performing Organization Address City/State/[facility] Co de Phone Number [facility] [address] [place] [address] * (ABNORMAL) 1 PROFILE WITH VZV (12/02/2019 [...] RH(D) POSITIVE [facility] COMMENT SEE NOTE [facility] Comment: For additional information, please refer to http://education.[employer] River/faq/VON747 (This link is being provided for informational/ [...] 11:36 PM EDT Narrative Resulting Agency Comment [id number] Gisselle JOHNS [facility] Final Resu lt Performing Organization Address [facility] Co de Phone Number [facility] [address] [place] [address] * CULTURE, URINE, ROUTINE (12/02/2019 1:40 PM EDT) Bacteria culture (Urine) SEE NOTE [facility] Comment: CULTURE, URINE, ROUTINE Micro Number: [id number] Test Status: Final Specimen Source: URINE Specimen Quality: Adequate Result: Growth of mixed gisela was isolated, suggesting probable contamination. No further testing will be performed. If clinically indicated, recollection using a method to minimize contamination, with prompt transfer to Urine Culture Transport Tube, is recommended. 12/02/2019 1:40 PM EDT 12/02/2019 11:36 PM EDT Narrative Resulting Agency Comment [id number] [facility] Final Resu lt Performing Organization Address [facility] de Phone Number [facility] [address] [place] [address] * URINALYSIS, COMPLETE INCLUDES DIPSTICK AND MICROSCOPIC [...] 11:36 PM EDT Narrative Resulting Agency Comment [id number] Gisselle Ayanna CN LAB SAME DAY RESULT Final Result [facility] [address] [place] [address] documented in this encounter Visit Diagnoses Diagnosis Screening for human immunodeficiency virus Special screening examination for other specified viral diseases Urinary frequency , unspecified gestational age (HHS) documented in this encounter Care Teams Outpatient Physical Therapist Relationship Specialty Start Date End Date Scarlett Norris [address] [address] 10/30/17 documented as of this encounter
--- OUTSIDE RECORDS SUMMARY | 2024-12-06 13:57 | XMS_ITS | Encounter Summary ---
Author Organization [facility] Address [address] [place] [address] Care Team Providers Care Ski Lift Operator Name Role Phone Unavailable Primary Care Provider Unavailabl e Encounter Details Date Type Department Care Team ([facility] st Contact Info) Description 2018 Orders Only [facility] CAR FERRY MASTER [address] [facility] [address] [place] [address] Anne Johnson CNM Social History Tobacco Use [...] Progress Notes * Berta Treviño RN - 08/11/2018 2:17 PM EDT To provider for review. Released to [employer]. documented in this encounter Plan of Treatment Not on file documented as of this encounter Procedures * Due to [place] state law, this organization might not be sharing negative HIV tests. Procedure Name Priority Date/Time Associated Diagnosis Comments CHLAMYDIA TRACHOMATIS/N. GONORRHOEAE (GC) RNA, TMA (URINE) Routine 2018 2:28 PM EDT Supervision of other normal , antepartum Encounter for supervision of other normal in second trimester documented in this encounter Results * Due to [place] state law, this organization might not be sharing negative HIV tests. * CHLAMYDIA TRACHOMATIS/N. GONORRHOEAE (GC) RNA, TMA (URINE) (2018 2:28 PM EDT) Chlamydia trachomatis rRNA NOT DETECTED NOT DETECTED [facility] Neisseria Gonorrhoeae rRNA NOT DETECTED NOT DETECTED [facility] COMMENT SEE NOTE [facility] Comment: This test was performed using the APTIMA COMBO2 Assay ([employer] The analytical performance characteristics of this assay, when used to test SurePath specimens have been determined by [employer]. 2018 2:28 PM EDT 08/11/2018 12:24 AM EDT Narrative Resulting Agency Comment [id number] Anne Johnson CNM LABORATORY Final Result Performing Organization Address City/State/[facility] Co de Phone Number [facility] [address] [place] [address] documented in this encounter Visit Diagnoses Diagnosis Encounter for supervision of other normal in second trimester (HHS) documented in this encounter Care Teams Ski Lift Operator Relationship Specialty Start Date End Date Scarlett Norris [address] [address] 10/30/17 documented as of this encounter
== END 2024-12-06 11:51 | disposition home or self-care (01) ==
LOC: HO.HMCFMS 11:23
PROVIDERS: PCP Student in an Organized Health Care Education/Training Program; Visit Provider Student in an Organized Health Care Education/Training Program
DX: R53.83 Other fatigue (principal); R06.83 Snoring; R35.0 Frequency of micturition; R39.89 Other symptoms and signs involving the genitourinary system; D64.9 Anemia, unspecified; R39.15 Urgency of urination

== ENCOUNTER 2024-12-06 11:22 | Outpatient (REF) | payer OTHER, SELFPAY ==
[2024-12-06 18:09] LABS: Appearance Urine Turbid; Glucose Urine UA Negative (Negative); PH 7.5 (5.0-9.0); Specific Gravity - Urine 1.025 (1.005-1.025)
[2024-12-06 18:20] LABS: MANUAL DIFF FLAG NO
[2024-12-06 18:26] LABS: Hematocrit 37.2 % (37.0-47.0); Hemoglobin 12.2 g/dl (12.0-16.0); Imm Gran Abs Auto 0.03 X10*3/uL (0.00-0.03); Imm Gran Pct Auto 0.4 % (0.0-0.4); Lymphocytes Absolute Auto 1.8 X10*3/uL (1.2-4.9); Mean Corpuscular HGB Conc 32.8 g/dl (31.0-35.0); Mean Corpuscular Hemoglobin 29.4 pg (27.0-33.0); Mean Corpuscular Volume 89.6 fL (80.0-98.0); NRBC Abs Auto 0.000 X10*3/uL (0.0-0.012); NRBC Pct Auto 0.0 /100WBC (0.0-0.2); Platelet Count 230 X10*3/uL (160-400); Red Blood Count 4.15 X10*6/uL (4.20-5.50); White Blood Count 8.5 X10*3/uL (4.8-10.8)
[2024-12-06 18:47] LABS: Alanine Aminotransferase 21 U/L (0-31); Albumin Level 4.5 g/dL (3.5-5.0); Alkaline Phosphatase 61 U/L (39-117); Anion Gap 10 (12-20); Aspartate Amino Transferase 38 U/L (5-31); Blood Urea Nitrogen 13 mg/dL (9-16); Calcium 9.3 mg/dL (8.4-10.2); Carbon Dioxide 28 mmol/L (22-29); Chloride 105 mmol/L (96-108); Cholesterol 136 mg/dL (<200); Estimated Glomerular Filt Rate > 60; HDL Cholesterol 50 mg/dL (>40); Magnesium 2.0 mg/dL (1.6-2.6); Potassium 3.8 mmol/L (3.3-5.1); Sodium 139 mmol/L (135-145); Total Protein 7.3 g/dL (6.5-8.0); Triglycerides 80 mg/dL (<150)
[2024-12-06 19:15] LABS: Folate 10.3 ng/mL (> or = 4.0); Vitamin B12 787 pg/mL (200-900)
[2024-12-07 08:24] LABS: HBS Num1 7.37 mIU/mL (0-7.99); HBsAGNum1 0.32 S/CO (0.00-0.99); HIV Num 1 0.10 S/CO (0.00-0.99); Hepatitis B Surface Antigen Negative (Negative); ~HepC Num1 0.12 S/CO (0.00-0.79); ~Hepatitis B Surface Antibody NONREACTIVE (Nonreactive); ~Hepatitis C Antibody Nonreactive (Nonreactive)
[2024-12-10 16:24] LABS: VITAMIN D (1,25 OH) D3 60 pg/mL; Vit D (1,25-Dihydroxy) Total 60 pg/mL (18-72); Vitamin D (1,25 OH) D2 <8 pg/mL
== END 2024-12-06 11:23 | disposition home or self-care (01) ==
LOC: HO.HKASLDS 11:22
PROVIDERS: PCP Student in an Organized Health Care Education/Training Program; Visit Provider Student in an Organized Health Care Education/Training Program
DX: Z11.4 Encounter for screening for human immunodeficiency virus [HIV] (principal); R06.83 Snoring; R53.83 Other fatigue; N92.6 Irregular menstruation, unspecified; R35.0 Frequency of micturition; R39.89 Other symptoms and signs involving the genitourinary system; D64.9 Anemia, unspecified; R39.15 Urgency of urination
CPT/HCPCS: 36415; 80053; 80061; 81003; 82607; 82652; 82746; 83036; 83735; 84443; 85025; 86706; 86803; 87340; 87389; 99202

== ENCOUNTER 2024-12-20 11:19 | Outpatient (AMB) | payer OTHER, SELFPAY ==
[2024-12-20 11:21] VITALS: BP 109/63; PULSE 65; RESP 16; TEMP 36.8; O2SAT 97; BMI 28.2
--- NOTE | 2024-12-20 11:21 | A.OFFPC_ITS ---
Vital Signs 12/20/24 11:21 Height 5 ft 4.37 in Weight 166 lb BMI 28.2 BP 109/63 Blood Pressure Location Rt brachial Position Sitting Respiration 16 Pulse 65 Pulse Source Pulse Oximeter Temp 98.3 F Temp Source Oral Pulse Oximetry (%) 97 Oxygen Delivery Method Room Air Intake Visit Reasons: 2 week follow up Hvac Sheet Metal Installer Helper Required: No Accompanied by: Self / Same As Patient Allergies No Known Allergies Allergy (Verified 12/20/24 11:22) Tobacco use date assessed: 12/20/24 Dental Screening Dental Screen Date: 12/20/24 Did you have a dental visit in the last 12 months?: Yes Did you have a dental problem in the last 6 months where you did not have access to dental care?: No Was dental information given to patient?: Patient has dentist HPI HPI Comments History of Present Illness Details Consent Patient was informed and verbally consented to the use of an ambient scribe for clinic note documentation during this visit. History of Present Illness The patient is a 29-year-old female presenting for a follow-up on her previous visit. Anemia: The patient has been experiencing fatigue and increased frequency of urination, which were discussed in the previous visit. Laboratory results indicate slightly low red blood cell count, while other parameters such as white blood cells, sodium, potassium, kidney, and liver function are normal. The patient is asymptomatic for any liver enzyme issues, and a repeat test is planned in three to six months. Overactive bladder: The patient reports increased frequency of urination, with no indication of infection from urine tests. A medication for overactive bladder has been discussed to see if it alleviates symptoms. Diagnostic Results: - Labs: White blood cells normal, red bl ood cells slightly low, sodium normal, potassium normal, kidney function normal, liver enzyme slightly elevated, magnesium normal, calcium normal, hemoglobin A1c normal, glucose normal, vitamin D normal, B12 normal, thyroid normal, urine normal, hepatitis B and C negative. Review of Systems - General: Reports fatigue. - Genitourinary: Reports increased frequ ency of urination. 10-point ROS reviewed and negative excep t as noted in HPI Past Medical History Health Maintenance Physical Exam General: Well-appearing, in no acute distress. Vital signs: Within normal limits. HEENT: Normocephalic, atraumatic. PERRLA, EOMI. Conjunctiva clear, sclera anicteric. Oropharynx clear, mucous membranes moist. TMs intact bilaterally. Neck: Supple, no lymphadenopathy, no thyromegaly, no JVD or carotid bruits. Cardiovascular: RRR, normal S1/S2, no murmurs, rubs, or gallops. Peripheral pulses 2+ and symmetric. No edema. Respiratory: Lungs clear to auscultation bilaterally, no wheezes, rales, or rhonchi. Normal effort. Abdomen: Soft, non-tender, non-distended. Normoactive bowel sounds. No hepatosplenomegaly, no masses. MSK: Full range of motion, no joint swelling or deformity. Normal gait. Skin: Warm, dry, intact. No rashes, lesions, or pallor. Neuro: Alert and oriented x3. Cranial nerves II-XII intact. Strength 5/5 throughout. Sensation intact. Reflexes 2+ symmetric. Normal coordination and gait. Psych: Appropriate mood and affect. Normal judgment and insight. Plan 1. Anemia - Plan to empirically treat with iron valentine pplementation and vitamin C to enhance absorption, with a follow-up in one month to assess improvement. 2. Overactive Bladder - Initiate treatment with 75 mg of vibeg litzy daily to manage symptoms, with a follow-up in one month to evaluate effectiveness. Discussion Notes During the visit, I discussed the patient's lab results, noting that most parameters were normal except for a slightly elevated liver enzyme, which will be re-evaluated in three to six months. We reviewed treatment options for anemia, including iron supplementation with vitamin C for better absorption, and discussed the use of vibegron for overactive bladder symptoms. The patient was informed about potential side effects of the medications and advised to seek emergency care if severe reactions occur. Patient Instructions - Take iron supplement one hour before o r two hours after meals, with vitamin C for better absorption. - Take vibegron 75 mg daily as prescribe d. - Follow up in one month to assess treat ment effectiveness. - Seek emergency care if experiencing se eitan side effects such as difficulty breathing. Medical Decision Making The decision to treat anemia with iron supplementation was based on the slightly low red blood cell count and the patient's symptoms of fatigue. Given the normal urine test results, overactive bladder was considered, and Webegron was prescribed to manage symptoms. The elevated liver enzyme was not immediately concerning due to the patient's asymptomatic status, but will be monitored with a repeat test in the future. Total time spent caring for the patient today was 30 minutes. This includes time spent before the visit reviewing the chart, time spent documenting, and time spent reviewing laboratory results, diagnostic imaging, medications, performing a medically necessary evaluation, counseling on diagnoses, care coordination, ordering appropriate tests, ordering appropriate medications. [facility] Medical History (Updated 12/06/24 @ 11:45 by Eric Boothe MD) Sensation of pressure in bladder area Frequency of micturition Fatigue Snoring Family History Father No problems noted. Mother No problems noted. Social History Housing: Apartment Alcohol intake: current Alcohol intake frequency: holidays/special occasions only Patient Tobacco Use Status: Never used Tobacco service: No Current occupational status: unemployed Cognitive needs: No Hearing needs: No Vision needs: No Questionnaire Thrive Questionnaire Date Thrive assessed: 11/29/24 I am a: Patient What is your living situation today?: I have a steady place to live Within the past 12 months, did the food you bought not last and you didn't have the money to get more?: Never true Within the past 12 months, did you worry whether your food would run out before you got money to buy more?: Never true Do you have trouble paying for medicines?: No Do you have trouble getting transportation to medical appointments?: No Do you have trouble paying your heating and electricity bill?: No Do you have trouble taking care of your child, family member or friend?: No Do you have trouble with day-to-day activities such as bathing, preparing meals, shopping, managing finances, etc.?: No Are you currently unemployed and looking for a job?: No Are you interested in more education?: No Please select the resources that you would like help with: None Currently or been in a relationship where the following occur: No concerns reported THRIVE Score: 0 AUDIT C Alcohol Use Questionnaire (AUDIT-C) 2. How many drinks containing alcohol do you have on a typical day when you are drinking?: 1 or 2 Total Score: 0 Physical exam (Primary Care) Vital Signs: Last Vital Signs Temp 98.3 F 12/20/24 11:21 Pulse 65 12/20/24 11:21 Resp 16 12/20/24 11:21 BP 109/63 12/20/24 11:21 Pulse Ox 97 12/20/24 11:21 Oxygen Delivery Method Room Air 12/20/24 11:21 BMI result Body Mass Index 28.2 Tobacco/Smoking Status: Tobacco use Status Tobacco use date assessed 12/20/24 12/20/24 11:24 Patient Tobacco Use Status Never used Tobacco 12/20/24 11:24 Thrive Assessment: Date of Thrive Assessment Date Thrive assessed 11/29/24 12/20/24 11:24 Currently or been in a relationship where the following occur: No concerns repor arelis Coding Level of Care Code Est Pt Level 4 (37565) Diagnoses Iron deficiency anemia D50.9 Overactive bladder N32.81 Elevated liver enzymes R74.8 Assessment & Plan Assessment & Plan (1) Iron deficiency anemia: Code(s): D50.9 - Iron deficiency anemia, unspecified (2) Overactive bladder: Code(s): N32.81 - Overactive bladder (3) Elevated liver enzymes: Code(s): R74.8 - Abnormal levels of other serum enzymes Plan Medications: New ferrous sulfate 325 mg PO DAILY 90 tabs 0RF vibegron 75 mg PO DAILY 30 tabs 0RF ascorbic acid (vitamin C) 500 mg PO DAILY 90 tabs 0RF
--- OUTSIDE RECORDS SUMMARY | 2024-12-20 14:01 | XMS_ITS | Encounter Summary ---
Author Organization [facility] Address [address] [place] [address] Care Team Providers Care Juvenile Court Judge Name Role Phone Unavailable Primary Care Provider Unavailabl e Encounter Details Date Type Department Care Team ([facility] st Contact Info) Description 02/23/2020 Orders Only [facility] BIG MACHINE CONSULTANT [address] [facility] [address] [place] [address] Cha Qureshi NP [address] [place] [address] Social History Tobacco Use Types Packs/Day Years [...] of this encounter Procedures * Due to [place] 1CLICK law, this organization might not be sharing negative HIV tests. 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 documented in this encounter Results * Due to [place] 1CL[employer] law, this organization might not be sharing [...] 11:08 PM EST Narrative Resulting Agency Comment [id number] Cha Qureshi NP LABORATORY Final Result Performing Organization Address City/State/[facility] Co de Phone Number [facility] [address] [place] [address] documented in this encounter Visit Diagnoses Diagnosis 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
--- OUTSIDE RECORDS SUMMARY | 2024-12-20 14:01 | XMS_ITS | Encounter Summary ---
Author Organization [facility] Address [address] [place] [address] Care Team Providers Care Help Desk Support Specialist Name Role Phone Padmini Hamilton CNM Unavailable Unavailable Encounter Details Date Type Department Care Team ([facility] st Contact Info) Description 05/30/2017 Orders Only [facility] ENTRY LEVEL SALES ASSOCIATE [address] [facility] [address] [place] [address] Manuela Peng CNM [address] [place] [address] Social History Tobacco Use Types Packs/Day Years [...] of this encounter Procedures * Due to [place] [employer] law, this organization might not be sharing negative HIV tests. Procedure Name Priority Date/Time Associated Diagnosis Comments THINPREP TIS PAP REFLEX HPV MRNA E6/E7, CT/NG, TRICH Routine 05/30/2017 10:51 AM EDT Encounter for supervision of normal first in first trimester documented in this encounter Results * Due to [place] [employer] law, this organization might not be sharing [...] evaluated with computer assisted technology. [facility] Salesperson Women'S Hats (Cvx/Vag) ALS CT(ASCP) CT screening location: [place] [address] [facility] Pathologist (Cvx/Vag) Matteo Pack M.D. Direct , Board Certified in Anatomic and Clinical Pathology and Cytopathology (electronic signature) Consulting Pathologist [facility] [address] [place] [id number] [facility] COMMENT SEE NOTE [facility] [...] was performed using the APTIMA COMBO2 Assay ([employer] The analytical performance characteristics of this assay, when used to test SurePath specimens have been determined by [employer]. Trichomonas vaginalis rRNA NOT DETECTED NOT DETECTED [facility] Comment: This test was performed using the APTIMA(R) Trichomonas vaginalis assay ([employer]R)). For more information on this test, go to: http://education.[employer].[facility]/faq/Trichomonastma The performance characteristics of this assay when used to test SurePath(R) specimens have been determined by [employer]. Performance characteristics refer to the analytical performance of this test. 05/30/2017 10:5 1 AM EDT 05/30/2017 7:52 PM EDT Narrative Resulting Agency Comment [id number] us Manuela Peng CNM PATHOLOGY-INTERFACED Final Res ult [facility] [address] [place] [address] documented in this encounter Visit Diagnoses Diagnosis Encounter for supervision of normal first in first trimester ([facility]) Supervision of normal first documented in this encounter Care Teams Help Desk Support Specialist Relationship Specialty Start Date End Date Padmini Hamilton CNM Devops Solutions Architect Certified Nurse [employer]ops Solutions Architect 05/02/17 10/29/17 Scarlett Norris [address] [address] 10/30/17 documented as of this encounter
--- OUTSIDE RECORDS SUMMARY | 2024-12-20 14:01 | XMS_ITS | Encounter Summary ---
Author Organization [facility] Address [address] [place] [address] Care Team Providers Care Clinical Medical Assistant Name Role Phone Unavailable Primary Care Provider Unavailabl e Encounter Details Date Type Department Care Team ([facility] st Contact Info) Description 03/08/2020 Orders Only [facility] MANAGER OF QUALITY [address] [facility] [address] [place] [address] Cha Qureshi NP [address] [place] [address] Social History Tobacco Use Types Packs/Day Years [...] this encounter Procedures * Due to [place] [employer] law, this organization might not be sharing negative HIV tests. Procedure Name Priority Date/Time Associated Diagnosis Comments VENIPUNCTURE Routine 03/08/2020 10:18 AM EST Encounter for supervision of normal , antepartum, unspecified VENIPUNCTURE Routine 03/08/2020 10:18 AM EST Encounter for supervision of normal , antepartum, unspecified documented in this encounter Results * Due to [place] [employer] law, this organization might not be sharing negative HIV tests. * GLUCOSE, 1 HR GESTATIONAL SCREEN (50G CHALLENGE) (03/08/2020 10:18 AM EST) Glucose^1H post 50 g glucose PO 110 <135 mg/dL [facility] 03/08/2020 10:1 8 AM EST 03/09/2020 1:18 AM EST Narrative Resulting Agency Comment [id number] Cha Qureshi NP LABORATORY Final Result Performing Organization Address City/State/[facility] Co de Phone Number [facility] [address] [place] [address] * (ABNORMAL) CBC INCLUDES DIFFERENTIAL AND PLATELET [...] 1:18 AM EST Narrative Resulting Agency Comment [id number] us Cha Qureshi CEMENTER MACHINE LAB SAME DAY RESULT Final Re sult Performing Organization Address City/State/[facility] Co de Phone Number [facility] [address] [place] [address] documented in this encounter Visit Diagnoses Diagnosis Encounter for supervision of normal , antepartum, unspecified (HHS) documented in this encounter Care Teams Clinical Medical Assistant Relationship Specialty Start Date End Date Scarlett Norris [address] [address] 10/30/17 documented as of this encounter
--- OUTSIDE RECORDS SUMMARY | 2024-12-20 14:01 | XMS_ITS | Encounter Summary ---
Author Organization [facility] Address [address] [place] [address] Care Team Providers Care Silk Screen Printer Name Role Phone Unavailable Primary Care Provider Unavailabl e Encounter Details Date Type Department Care Team ([facility] st Contact Info) Description 04/19/2020 Orders Only [facility] AIRBORNE OPERATIONS SUPERINTENDENT [address] [facility] [address] [place] [address] Gisselle Urena CNM [address] [place] [address] Social History Tobacco Use Types Packs/Day Years [...] on filedocumented in this encounter Care Teams Silk Screen Printer Relationship Specialty Start Date End Date Scarlett Norris [place] [phone] 10/30/17 documented as of this encounter
--- OUTSIDE RECORDS SUMMARY | 2024-12-20 14:02 | XMS_ITS | Encounter Summary ---
Author Organization [facility] Address [address] [place] [address] Care Team Providers Care Director Marketing Name Role Phone Padmini Hamilton CNM Unavailable Unavailable Encounter Details Date Type Department Care Team (Late st Contact Info) Description 04/28/2017 Orders Only [facility] MARKING MACHINE TENDER [address] [facility] [address] [place] [address] Padmini Hamilton, RICHARD Social History Tobacco Use [...] this encounter Procedures * Due to [place] [employer] law, this organization might not be sharing [...] this encounter Results * Due to [place] [employer] law, this organization might not be sharing [...] 12:15 AM EST Narrative Resulting Agency Comment [id number] Padmini Hamilton CNM LAB SAME DAY RESULT Final Re sult [facility] [address] [place] [address] * CULTURE, URINE, ROUTINE (04/28/2017 2:52 PM EST) Bacteria culture (Urine) SEE NOTE [facility] Comment: CULTURE, URINE, ROUTINE MICRO NUMBER: [id number] TEST STATUS: FINAL SPECIMEN SOURCE: URINE SPECIMEN QUALITY: ADEQUATE RESULT: No Growth 04/28/2017 2:52 PM EST 04/29/2017 12:15 AM EST Narrative Resulting Agency Comment [id number] Padmini Hamilton NAT LABORATORY Final Result [facility] [address] [place] [address] * (ABNORMAL) 1 PROFILE WITH VZV (04/28/2017 [...] 12:15 AM EST Narrative Resulting Agency Comment [id number] Padmini Hamilton CNM LABORATORY Final Result Performing Organization Address City/State/[facility] Co de Phone Number [facility] [address] [place] [address] documented in this encounter Visit Diagnoses Diagnosis Supervision of normal first , antepartum (HHS) Urine frequency Urinary frequency Screening for HIV (human immunodeficiency virus) Special screening examination for other specified viral diseases documented in this encounter Care Teams Director Marketing Relationship Specialty Start Date End Date Padmini Hamilton CNM Child Day Care Center Worker Certified Nurse [facility] Center Worker 05/02/17 10/29/17 Scarlett Norris [address] [address] 10/30/17 documented as of this encounter
--- OUTSIDE RECORDS SUMMARY | 2024-12-20 14:02 | XMS_ITS | Encounter Summary ---
Author Organization [facility] Address [address] [place] [address] Care Team Providers Care Film Writer Name Role Phone Unavailable Primary Care Provider Unavailabl e Encounter Details Date Type Department Care Team (Late st Contact Info) Description 12/02/2019 Orders Only [facility] SERVICE DIRECTOR [address] [facility] [address] [place] [address] Mihir Marcus, POST ANESTHESIA CARE UNIT NURSE Social History Tobacco Use Types Packs/Day Years [...] this encounter Procedures * Due to [facility] [place] law, this organization might not be sharing negative HIV tests. Procedure Name Priority Date/Time Associated Diagnosis Comments THINPREP TIS PAP REFLEX HPV MRNA E6/E7, CHLAMYDIA/N.GONORR HOEAE Routine 12/02/2019 2:44 PM EDT Encounter for gynecological examination without abnormal finding documented in this encounter Results * Due to [place] [employer] law, this organization might not be sharing negative HIV tests. * (ABNORMAL) THINPREP TIS PAP REFLEX HPV MRNA E6/E7, CHLAMYDIA/N.GONORRHOEAE (12/02/2019 2:44 PM EDT) Clinical information [id number] [facility] Date last menstrual period [facility] [...] evaluated with computer assisted technology. [facility] Shingle Packer (Cvx/Vag) GSG, CT(ASCP) CT screening location: [place] [address] [facility] Pathologist (Cvx/Vag) Tiara Lloyd M.D.,PhD, Board Certified in Anatomic and Clinical Pathology and Cytopathology (electronic signature) Consulting Pathologist [facility] [address] [place] [id number] [facility] COMMENT SEE NOTE [facility] [...] test SurePath(TM) specimens have been determined by [facility]. The modifications have not been cleared or approved by the FDA. This assay has been validated pursuant to the CLIA regulations and is used for clinical purposes. For additional information, please refer to https://education.Crono/faq/AJK554 (This link is being provided for information/ educational purposes only.) Cervical 12/02/2019 2:44 PM EDT 12/03/2019 5:53 AM EDT Narrative Resulting Agency Comment [id number] us Mihir Marcus NP PATHOLOGY-INTERFACED Final Res ult Performing Organization Address City/State/[facility] Co de Phone Number [facility] [address] [place] [address] documented in this encounter Visit Diagnoses Diagnosis Encounter for gynecological examination without abnormal finding Routine gynecological examination documented in this encounter Care Teams Film Writer Relationship Specialty Start Date End Date Scarlett Norris [address] [address] 10/30/17 documented as of this encounter
--- OUTSIDE RECORDS SUMMARY | 2024-12-20 14:02 | XMS_ITS | Encounter Summary ---
Author Organization [facility] Address [address] [place] [address] Care Team Providers Care Oil Well Fishing Tool Operator Name Role Phone Unavailable Primary Care Provider Unavailabl e Encounter Details Date Type Department Care Team ([facility] st Contact Info) Description 12/02/2019 Orders Only [facility] HAND TOOL FILER [address] [facility] [address] [place] [address] Gisselle Urena CNM [address] [place] [address] Social History Tobacco Use Types Packs/Day Years [...] of this encounter Procedures * Due to [place] [employer] law, this organization might not be sharing [...] in this encounter Results * Due to [place] [employer] law, this organization might not be sharing [...] 11:36 PM EDT Narrative Resulting Agency Comment [id number] [facility] LAB SAME DAY RESULT Final Result Performing Organization Address [facility] Co de Phone Number [facility] [address] [place] [address] * CULTURE, URINE, ROUTINE (12/02/2019 1:40 PM EDT) Bacteria culture (Urine) SEE NOTE [facility] Comment: CULTURE, URINE, ROUTINE Micro Number: [id number] Test Status: Final Specimen Source: URINE Specimen Quality: Adequate Result: Growth of mixed gisela was isolated, suggesting probable contamination. No further testing will be performed. If clinically indicated, recollection using a method to minimize contamination, with prompt transfer to Urine Culture Transport Tube, is recommended. 12/02/2019 1:40 PM EDT 12/02/2019 11:36 PM EDT Narrative Resulting Agency Comment [id number] [facility] LABORATORY Final Resu lt Performing Organization Address [facility] de Phone Number [facility] [address] [place] [address] * (ABNORMAL) 1 PROFILE WITH VZV (12/02/2019 [...] RH(D) POSITIVE [facility] COMMENT SEE NOTE [facility] Comment: For additional information, please refer to http://education.Football Meister/faq/GTR779 (This link is being provided for informational/ [...] 11:36 PM EDT Narrative Resulting Agency Comment [id number] Gisselle Urena [facility] LABORAT[facility] Final Resu lt Performing Organization Address [facility] Co de Phone Number [facility] [address] [place] [address] * HEPATITIS C AB WITH REFLEX TO RNA PCR, SERUM (12/02/2019 1:40 PM EDT) Hepatitis C virus Ab NON-REACT SHERMAN NON-REACT SHERMAN [facility] Hepatitis C virus Ab Signal/Cutoff 0.01 <1.00 [facility] Comment: HCV antibody was non-reactive. There is no laboratory evidence of HCV infection. In most cases, no further action is required. However, if recent HCV exposure is suspected, a test for HCV RNA (test code 14083) is suggested. For additional information please refer to http://education.Streetcar/faq/GCT79k1 (This link is being provided for informational/ educational purposes only.) 12/02/2019 1:40 PM EDT 12/02/2019 11:36 PM EDT Narrative Resulting Agency Comment [id number] Gisselle Millergray [facility] LABORATORY Final Resu lt Performing Organization Address City/[facility] Co de Phone Number [facility] [address] [place] [address] documented in this encounter Visit Diagnoses Diagnosis , unspecified gestational age (HHS) Urinary frequency documented in this encounter Care Teams Oil Well Fishing Tool Operator Relationship Specialty Start Date End Date Scarlett Norris [address] [address] 10/30/17 documented as of this encounter
--- OUTSIDE RECORDS SUMMARY | 2024-12-20 14:02 | XMS_ITS | Encounter Summary ---
Author Organization [facility] Address [address] [place] [address] Care Team Providers Care Telegraph Repeater Technician Name Role Phone Lucretia Salas MD Primary Care Provider Padmini Hamilton CNM Unavailable Unavailable Encounter Details Date Type Department Care Team (Late st Contact Info) Description 04/14/2017 Orders Only [facility] BOARD WINDER [address] [facility] [address] [place] [address] Padmini Hamilton CNM Social History Tobacco Use [...] of this encounter Procedures * Due to [place] state law, this organization might not be sharing negative HIV tests. Procedure Name Priority Date/Time Associated Diagnosis Comments HCG, TOTAL, QL Routine 04/14/2017 12:16 PM EST Unconfirmed documented in this encounter Results * Due to [place] state law, this organization might not be [...] 12:15 AM EST Narrative Resulting Agency Comment [id number] Padmini Hamilton CNM LAB SAME DAY RESULT Final Re sult Performing Organization Address [facility] Co de Phone Number [facility] [address] [place] [address] * CULTURE, URINE, ROUTINE (04/28/2017 2:52 PM EST) Bacteria culture (Urine) SEE NOTE [facility] Comment: CULTURE, URINE, ROUTINE MICRO NUMBER: [id number] TEST STATUS: FINAL SPECIMEN SOURCE: URINE SPECIMEN QUALITY: ADEQUATE RESULT: No Growth 04/28/2017 2:52 PM EST 04/29/2017 12:15 AM EST Narrative Resulting Agency Comment [id number] Padmini Hamilton [facility] LABORATORY Final Result Performing Organization Address [facility] Co de Phone Number [facility] [address] [place] [address] * (ABNORMAL) 1 PROFILE WITH VZV (04/28/2017 [...] 12:15 AM EST Narrative Resulting Agency Comment [id number] Padmini Hamilton CNM LABORATORY Final Result Performing Organization Address [facility] Co de Phone Number [facility] [address] [place] [address] * (ABNORMAL) HCG, TOTAL, QL (04/14/2017 12:16 PM EST) HCG, Qualitative (Screen) POSITIVE( A) [facility] Comment: Reference Range Non-: Negative : Positive 04/14/2017 12:1 6 PM EST 04/14/2017 4:51 PM EST Narrative Resulting Agency Comment [id number] Padmini Hamilton CNM LAB SAME DAY RESULT Final Re sult Performing Organization Address [facility] Co de Phone Number [facility] [address] [place] [address] documented in this encounter Visit Diagnoses Diagnosis Unconfirmed examination or test, unconfirmed Supervision of normal first , antepartum (HHS) Urine frequency Urinary frequency Screening for HIV (human immunodeficiency virus) Special screening examination for other specified viral diseases documented in this encounter Care Teams Telegraph Repeater Technician Relationship Specialty Start Date End [place] [address] PCP - General Pediatrics 04/14/17 04/14/17 Padmini Hamilton CNM [address] [address] Doll Maker Certified Nurse Doll Maker 05/02/17 Scarlett Norris [address] [address] 10/30/17 documented as of this encounter
--- OUTSIDE RECORDS SUMMARY | 2024-12-20 14:03 | XMS_ITS | Encounter Summary ---
Author Organization [facility] Address [address] [place] [address] Care Team Providers Care Pv Installer Tech Name Role Phone Unavailable Primary Care Provider Unavailabl e Encounter Details Date Type Department Care Team (Late st Contact Info) Description 07/15/2018 Orders Only [facility] ANIMAL SCIENTIST [address] [facility] [address] [place] [address] Anne Johnson CNM Social History Tobacco Use [...] (HHS) documented in this encounter Care Teams Pv Installer Tech Relationship Specialty Start Date End Date Scarlett Norris [address] [address] 10/30/17 documented as of this encounter
--- OUTSIDE RECORDS SUMMARY | 2024-12-20 14:03 | XMS_ITS | Encounter Summary ---
Author Organization [facility] Address [address] [place] [address] Care Team Providers Care Belt Notcher Name Role Phone Padmini Hamilton CNM Unavailable Unavailable Encounter Details Date Type Department Care Team (Late st Contact Info) Description 10/27/2017 Orders Only [facility] RESIDENT CARE AID [address] [facility] [address] [place] [address] Daya Urias NP Social History Tobacco Use [...] DIAGNOSTICS Comment: CULTURE, URINE, ROUTINE MICRO NUMBER: [id number] TEST STATUS: FINAL SPECIMEN SOURCE: URINE SPECIMEN QUALITY: ADEQUATE RESULT: Multiple organisms present, each less than 10,000 CFU/mL. These organisms, commonly found on external and internal genitalia, are considered to be colonizers. No further testing performed. 10/27/2017 2:27 PM EDT 10/27/2017 11:02 PM EDT Narrative Resulting Agency Comment [id number] us Daya Urias NP LABORATORY Final Result Performing Organization Address City/State/[facility] Co de Phone Number [facility] [address] [place] [address] documented in this encounter Visit Diagnoses Diagnosis Encounter for supervision of normal first in third trimester ([facility]) Supervision of normal first documented in this encounter Care Teams Belt Notcher Relationship Specialty Start Date End Date Padmini Hamilton CNM Objects Conservator Certified Nurse Objects Conservator 05/02/17 10/29/17 Scarlett Norris [address] [address] 10/30/17 documented as of this encounter
--- OUTSIDE RECORDS SUMMARY | 2024-12-20 14:03 | XMS_ITS | Clinical Summary ---
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 Plan is for transfer to [facility] specialties clinic. ALLERGIES: Review of patient's allergies indicates no known allergies. Genetic Testing? Cystic Fibrosis: Patient declined this test. Sequential Screening: Patient declined this test. QNatal: Patient does not have any risk factors. Patient with echogenic foci on US. 09/04/18 PA for qnatal submitted via [employer] provider portal. Awaiting response. Patient does not [...] transfer of care to Special[facility] Cl[facility] at [facility]. Gender: Does patient prefer to know gender? Yes, its a boy! Supervision of normal ([facility]) 04/29/2017 08/06/2018 Overview (12/24/2017): Provider Name: OB1 [...] - FE BID Third Trimester: GBS: Obtained [facility] 11/17/17 Negative Vaccines: Influenza: no TDaP: Information [...] Smear 12/01/2022 12/02/2019, 04/03, 05/30/2017 COVID-19 Vaccine (2024- season) 2024 Influenza (#1) 2024 01/17/2021, 12/31/2018 [...] this topic Procedures * Due to [place] [employer] law, this organization might not be sharing [...] Health Maintenance Results * Due to [place] [employer] law, this organization might not be sharing negative HIV tests. * (ABNORMAL) THINPREP TIS PAP REFLEX HPV MRNA E6/E7, CHLAMYDIA/N.GONORRHOEAE (12/02/2019 2:44 PM EDT) Clinical information [id number] [facility] Date last menstrual period [facility] [...] evaluated with computer assisted technology. [facility] Carton Making Machine Operator (Cvx/Vag) GSG, CT(ASCP) CT screening location: [place] [address] [facility] Pathologist (Cvx/Vag) Tiara Lloyd M.D.,PhD, Board Certified in Anatomic and Clinical Pathology and Cytopathology (electronic signature) Consulting Pathologist [facility] [address] [place] [address] [facility] COMMENT SEE NOTE [facility] Comment: EXPLANATORY NOTE: The Pap is a [...] Chlamydia trachomatis rRNA NOT DETECTED NOT DETECTED [facility] Neisseria Gonorrhoeae rRNA NOT DETECTED NOT DETECTED [facility] COMMENT SEE NOTE [facility] Comment: The analytical performance characteristics of this assay, when used to test SurePath(TM) specimens have been determined by [employer]. The modifications have not been cleared or approved by the FDA. This assay has been validated pursuant to the CLIA regulations and is used for clinical purposes. For additional information, please refer to https://education.Dolphin Geeks/faq/BCC368 (This link is being provided for information/ educational purposes only.) Cervical 12/02/2019 2:44 PM EDT 12/03/2019 5:53 AM EDT Narrative Resulting Agency Comment [id number] Mihir Marcus NP PATHOLOGY-INTERFACED Final Res ult [facility] [address] [place] [address] * HEPATITIS C AB WITH REFLEX TO [...] a test for HCV RNA (test code 38159) is suggested. For additional information please refer to http://education.Dolphin Geeks/faq/EGF01d9 (This link is being provided for informational/ educational purposes only.) 12/02/2019 1:40 PM EDT 12/02/2019 11:36 PM EDT Narrative Resulting Agency Comment [id number] Gisselle JOHNS LABORATORY Final Resu lt [facility] [address] [place] [address] from Last 3 Months or Most Recently Relevant to Health Maintenance Insurance [address] [place] [id number] MEDICAID Care Teams Crusher Wet Ground Mica Relationship Specialty Start Date End Date Scarlett Norris [facility] [address] [place] [address] 10/30/17
--- OUTSIDE RECORDS SUMMARY | 2024-12-20 14:03 | XMS_ITS | Encounter Summary ---
Author Organization [facility] Address [address] [place] [address] Care Team Providers Care Geropsychologist Name Role Phone Unavailable Primary Care Provider Unavailabl e Encounter Details Date Type Department Care Team (Late st Contact Info) Description 11/10/2019 Orders Only [facility] SOCIOLOGY PROFESSOR [address] [facility] [address] [place] [address] Gisselle Urena CNM [address] [place] [address] Social History Tobacco Use Types Packs/Day Years [...] of this encounter Results * Due to [place] state law, this organization might not be [...] a test for HCV RNA (test code 60147) is suggested. For additional information please refer to http://education.Planview/faq/WTG07w3 (This link is being provided for informational/ educational purposes only.) 12/02/2019 1:40 PM EDT 12/02/2019 11:36 PM EDT Narrative Resulting Agency Comment [id number] Gisselle Urena [facility] LABORATORY Final Resu lt Performing Organization Address City/State/[facility] Co de Phone Number [facility] [address] [place] [address] * (ABNORMAL) 1 PROFILE WITH VZV (12/02/2019 [...] RH(D) POSITIVE [facility] COMMENT SEE NOTE [facility] Comment: For additional information, please refer to http://education.Gasngo/faq/GTP459 (This link is being provided for informational/ [...] 11:36 PM EDT Narrative Resulting Agency Comment [id number] Gisselle JOHNS LABORATORY Final Resu lt Performing Organization Address [facility] Co de Phone Number [facility] [address] [place] [address] * CULTURE, URINE, ROUTINE (12/02/2019 1:40 PM EDT) Bacteria culture (Urine) SEE NOTE [facility] Comment: CULTURE, URINE, ROUTINE Micro Number: [id number] Test Status: Final Specimen Source: URINE Specimen Quality: Adequate Result: Growth of mixed gisela was isolated, suggesting probable contamination. No further testing will be performed. If clinically indicated, recollection using a method to minimize contamination, with prompt transfer to Urine Culture Transport Tube, is recommended. 12/02/2019 1:40 PM EDT 12/02/2019 11:36 PM EDT Narrative Resulting Agency Comment [id number] [email or web address] Final Resu lt Performing Organization Address [facility] de Phone Number [facility] [address] [place] [address] * URINALYSIS, COMPLETE INCLUDES DIPSTICK AND MICROSCOPIC [...] 11:36 PM EDT Narrative Resulting Agency Comment [id number] Gisselle Ayanna CN LAB SAME DAY RESULT Final Result [facility] [address] [place] [address] documented in this encounter Visit Diagnoses Diagnosis Screening for human immunodeficiency virus Special screening examination for other specified viral diseases Urinary frequency , unspecified gestational age (HHS) documented in this encounter Care Teams Geropsychologist Relationship Specialty Start Date End Date Scarlett Norris [address] [address] 10/30/17 documented as of this encounter
--- OUTSIDE RECORDS SUMMARY | 2024-12-20 14:03 | XMS_ITS | Encounter Summary ---
Author Organization [facility] Address [address] [place] [address] Care Team Providers Care Energy Management Specialist Name Role Phone Unavailable Primary Care Provider Unavailabl e Encounter Details Date Type Department Care Team (Late st Contact Info) Description 10/29/2019 Orders Only [facility] [address] [place] [address] Gisselle Urena CNM [address] [place] [address] Social History Tobacco Use Types Packs/Day Years [...] of this encounter Procedures * Due to [place] state law, this organization might not be sharing negative HIV tests. Procedure Name Priority Date/Time Associated Diagnosis Comments VENIPUNCTURE Routine 10/29/2019 11:29 AM EDT Date of last menstrual period (LMP) unknown documented in this encounter Results * Due to [place] [email or web address] law, this organization might not be sharing negative HIV tests. * (ABNORMAL) HCG, (HUMAN CHORIONIC GONADOTROPIN), TOTAL, QUANTITATIVE (10/29/2019 11:29 AM EDT) HCG, Total, Quantitative 690860(H) mIU/mL [facility] Comment: Reference Range Non or premenopausal <5 Postmenopausal <10 Values from different assay methods may vary. The use of this assay to monitor or to diagnose patients with cancer or any condition unrelated to has not been cleared or approved by the FDA or the oracle fusion developer of the assay. 10/29/2019 11:2 9 AM EDT 10/29/2019 1:57 PM EDT Narrative Resulting Agency Comment [id number] us Gisselle Urena [facility] SAME DAY RESULT Final Result Performing Organization Address City/State/[facility] Co de Phone Number [facility] [address] [place] [address] documented in this encounter Visit Diagnoses Diagnosis Date of last menstrual period (LMP) unknown documented in this encounter Care Teams Energy Management Specialist Relationship Specialty Start Date End Date Scarlett Norris [address] [address] 10/30/17 documented as of this encounter
--- OUTSIDE RECORDS SUMMARY | 2024-12-20 14:03 | XMS_ITS | Encounter Summary ---
Author Organization [facility] Address [address] [place] [address] Care Team Providers Care Chili Maker Name Role Phone Unavailable Primary Care Provider Unavailabl e Encounter Details Date Type Department Care Team (Late st Contact Info) Description 08/06/2018 Orders Only [facility] MEMORY CARE DIRECTOR [address] [place] [address] Anne Johnson CNM Social History Tobacco Use [...] of this encounter Procedures * Due to [place] [employer] law, this organization might not be sharing negative HIV tests. Procedure Name Priority Date/Time Associated Diagnosis Comments 1 PROFILE WITH VZV Routine 08/06/2018 2:28 PM EDT Supervision of other normal , antepartum CULTURE, URINE, ROUTINE Routine 08/06/2018 2:28 PM EDT Urine frequency URINALYSIS, COMPLETE INCLUDES DIPSTICK AND MICROSCOPIC Routine 08/06/2018 2:28 PM EDT Urine frequency documented in this encounter Results * Due to [place] [employer] law, this organization might not be sharing negative HIV tests. * CULTURE, URINE, ROUTINE (08/06/2018 2:28 PM EDT) Bacteria culture (Urine) SEE NOTE [facility] Comment: CULTURE, URINE, ROUTINE MICRO NUMBER: [id number] TEST STATUS: FINAL SPECIMEN SOURCE: URINE, CLEAN CATCH SPECIMEN QUALITY: ADEQUATE RESULT: No Growth 08/06/2018 2:28 PM EDT 08/06/2018 11:41 PM EDT Narrative Resulting Agency Comment [id number] Anne Johnson CNM LABORATORY Final Result Performing Organization Address City/State/[facility] Co de Phone Number [facility] [address] [place] [address] * (ABNORMAL) URINALYSIS, COMPLETE INCLUDES DIPSTICK AND [...] SEEN NONE SEEN /LPF [facility] 08/06/2018 2:2 8 PM EDT 08/06/2018 11:41 PM EDT Narrative Resulting Agency Comment [id number] Anne JOHNS LAB SAME DAY RESULT Final Resul t [facility] [address] [place] [address] * (ABNORMAL) 1 PROFILE WITH VZV (08/06/2018 [...] 11:41 PM EDT Narrative Resulting Agency Comment [id number] Anne Johnson CNM LABORATORY Final Result [facility] [address] [place] [address] documented in this encounter Visit Diagnoses Diagnosis Supervision of other normal , antepartum (HHS) Urine frequency Urinary frequency Screening for HIV (human immunodeficiency virus) Special screening examination for other specified viral diseases documented in this encounter Care Teams Chili Maker Relationship Specialty Start Date End Date Scarlett Norris [address] [address] 10/30/17 documented as of this encounter
--- OUTSIDE RECORDS SUMMARY | 2024-12-20 14:03 | XMS_ITS | Encounter Summary ---
Author Organization [facility] Address [address] [place] [address] Care Team Providers Care Staff Services Manager Name Role Phone Unavailable Primary Care Provider Unavailabl e Encounter Details Date Type Department Care Team (Late st Contact Info) Description 08/31/2020 Orders Only [facility] Pre-Admission Testing [address] [place] [address] Alva Vega NP Social History Tobacco Use [...] of this encounter Procedures * Due to [place] [employer] law, this organization might not be sharing [...] in this encounter Results * Due to [place] [employer] law, this organization might not be sharing negative HIV tests. * FERRITIN (08/31/2020 10:02 AM EDT) Ferritin 19 16 - 154 ng/mL [facility] 08/31/2020 10:0 2 AM EDT 08/31/2020 4:10 PM EDT Narrative Resulting Agency Comment [id number] us Alva Vega NP LABORATORY Final Result [facility] [address] [place] [address] * (ABNORMAL) IRON PROFILE (IRON/TIBC), SERUM (08/31/2020 10:02 AM EDT) Pathologist [facility] Iron 35(L) 40 - 190 mcg/dL [facility] Iron binding capacity 334 250 - 450 mcg/dL (calc) [facility] Iron saturation 10(L) 16 - 45 % (calc) [facility] 08/31/2020 10:0 2 AM EDT 08/31/2020 4:10 PM EDT Narrative Resulting Agency Comment [id number] Alva Vega NP LABORATORY Final Result Performing Organization Address City/[facility] Co de Phone Number [facility] [address] [place] [address] * CBC INCLUDES DIFFERENTIAL AND PLATELET COUNT (08/31/2020 10:02 AM EDT) Pathologist [facility] WBC 7.3 3.8 - 10.8 Thousand/u L [...] 4:10 PM EDT Narrative Resulting Agency Comment [id number] us Alva Vega NP LAB SAME DAY RESULT Final Resul t [facility] [address] [place] [address] * (ABNORMAL) BASIC METABOLIC PANEL WITH (GFR) [...] needs for GFR calculation. Resulting Agency Comment [id number] us Alva Vega NP LABORATORY Final Result [facility] [address] [place] [address] documented in this encounter Visit Diagnoses Diagnosis Preoperative examination Preoperative examination, unspecified Unwanted fertility Reserved for inherently not codable concepts WITHOUT codable children Iron deficiency anemia, unspecified iron deficiency anemia type documented in this encounter Care Teams Staff Services Manager Relationship Specialty Start Date End Date Scarlett Norris [address] [address] 10/30/17 documented as of this encounter
--- OUTSIDE RECORDS SUMMARY | 2024-12-20 14:03 | XMS_ITS | Encounter Summary ---
Author Organization [facility] Address [address] [place] [address] Care Team Providers Care Master Tax Advisor Name Role Phone Unavailable Primary Care Provider Unavailabl e Encounter Details Date Type Department Care Team ([facility] st Contact Info) Description [address] [facility] VULCANIZING MACHINE OPERATOR [address] [facility] [address] [place] [address] Anne Johnson CNM Social History Tobacco Use [...] EDT To provider for review. Released to [employer] [facility]. documented in this encounter Plan of Treatment Not on file documented as of this encounter Procedures * Due to [place] state law, this organization might not be sharing negative HIV tests. Procedure Name Priority Date/Time Associated Diagnosis Comments CHLAMYDIA TRACHOMATIS/N. GONORRHOEAE (GC) RNA, TMA (URINE) Routine 2018 2:28 PM EDT Supervision of other normal , antepartum Encounter for supervision of other normal in second trimester documented in this encounter Results * Due to [place] state law, this organization might not be sharing negative HIV tests. * CHLAMYDIA TRACHOMATIS/N. GONORRHOEAE (GC) RNA, TMA (URINE) (2018 2:28 PM EDT) Chlamydia trachomatis rRNA NOT DETECTED NOT DETECTED [facility] Neisseria Gonorrhoeae rRNA NOT DETECTED NOT DETECTED [facility] COMMENT SEE NOTE [facility] Comment: This test was performed using the APTIMA COMBO2 Assay ([employer] The analytical performance characteristics of this assay, when used to test SurePath specimens have been determined by [employer]. 2018 2:28 PM EDT 08/11/2018 12:24 AM EDT Narrative Resulting Agency Comment [id number] Anne Johnson CNM LABORATORY Final Result Performing Organization Address City/State/[facility] Co de Phone Number [facility] [address] [place] [address] documented in this encounter Visit Diagnoses Diagnosis Encounter for supervision of other normal in second trimester (HHS) documented in this encounter Care Teams Master Tax Advisor Relationship Specialty Start Date End Date Scarlett Norris [address] [address] 10/30/17 documented as of this encounter
--- OUTSIDE RECORDS SUMMARY | 2024-12-20 14:03 | XMS_ITS | Clinical Summary ---
Author Organization [facility] Address [address] [place] [address] Care Team Providers Care Wood And Wood Products Factory Worker Name Role Phone [facility]ly [facility] Primary Care Provider Allergies No known [...] migh t be different from the original. [facility] participant. Problem Noted Date Diagnosed Date Depression [...] 2 Left pelvic kidney Will deliver at [facility]. Sub specialty providers NICU consult 01/07 Present [...] AROM _N_avoid internal monitors _N_avoid: misoprostol/pitocin/cervical gilliland Evaluation: After , the s condition will [...] disease progression. Plan is for transfer to [facility] specialties clinic. ALLERGIES: Review of patient's allergies indicates no known allergies. Genetic Testing? Cystic Fibrosis: Patient declined this test. Sequential Screening: Patient declined this test. QNatal: Patient does not have any risk factors. Patient with echogenic foci on US. 09/04/18 PA for qnatal submitted via [employer] provider portal. Awaiting response. Patient does not [...] [facility] Gender: Does patient prefer to know gender? [...] Annual Screening 03/03/2024 COVID-19 Vaccine ( - 2024- season) 2024 Influenza Vaccine (#1) 2024 01/17/2021, [...] complete this topic Procedures * Due to [place] state law, this organization might not be sharing negative HIV tests. Procedure Name Priority Date/Time Associated Diagnosis Comments PAP Routine 04/11/2022 10:09 AM EST Cervical cancer screening from Last 3 Months or Most Recently Relevant to Health Maintenance Results * Due to [place] state law, this organization might not be sharing negative HIV tests. * Pap (04/11/2022 10:09 AM EST) Specimen Adequacy Satisfactory for evaluation [facility] MANUAL 3 3:53 PM EDT Only [facility] Pathologist Cytology Interpretation Negative for intraepithelial lesion or malignancy. [facility] MANUAL 3 3:53 PM EDT [facility] at 1553 EDT Comment:This is the result o f a morphological screening test with an inherent possibility of a false negative interpretation. Sewage Disposal Engineer Statement This Pap test was examined by the [facility], [place], [place], [place]. This Pap test was examined in accordance with the [facility] written policy, which incorporates all CLIA mandates. Current screening guidelines can be found in [place]: A Cancer Journal for Clinicians 2020;70:321-346. Current ASCCP management guidelines for abnormal Pap tests are published in the Journal Lower Genital Tract Disease Volume 2020;24:102-131. [facility] MANUAL 3 3:53 PM EDT [facility] ANATOMIC PATHOLOGY LABORATORY Clinical History REPEAT PAP [facility] MANUAL 3 3:53 PM EDT Only [employer] [facility] Resulting Agency Case was signed out at [facility], Department of Pathology, Biotech 3 CLIA [id number] [facility] MANUAL 3 3:53 PM EDT [facility] [employer] [facility] Report Header Gynecologic Cytology Report Case: [id number] Authorizing Provider: ELODIA Mayo Collected: 04/11/2022 1009 Ordering Location: [facility] Received: 04/11/2022 1133 [facility] First Screen: Melisa Perkins Rescreen: January Mera Specimen: Screening ThinPrep Pap, Cervix/Endocervix 3 3:53 PM EDT [employer] [facility] LAB[facility] Brushing Cervix uteri structure / Unknown Non-Blood Collection / Unknown 04/11/2022 10:09 AM EST 04/11/2022 11:33 AM EST us Annette [facility] LAB PATHOLOGY/CYTOLOGY ORDERABL ES Final Result [employer] [facility] [address] [place] [id number], from Last 3 Months or Most Recently Relevant to Health Maintenance Insurance [facility] MEDICAID Advance Directives * Full Code (Latest Code Status on File) Date Activated Date Inactivated Comments 05/23/2021 1:40 AM 05/25/2021 8:52 PM * Full Code Date Activated Date Inactivated Comments 01/20/2019 3:37 AM 01/22/2019 8:34 PM Care Teams Wood And Wood Products Factory Worker Relationship Specialty Start Date End Date [facility] [address] [place] [address] PCP - General Family Medicine 01/19/19
--- OUTSIDE RECORDS SUMMARY | 2024-12-20 14:03 | XMS_ITS | Encounter Summary ---
Author Organization [facility] Address [address] [place] [address] Care Team Providers Care Leadership Program Internship Name Role Phone Unavailable Primary Care Provider Unavailabl e Encounter Details Date Type Department Care Team (Late st Contact Info) Description 07/22/2018 Orders Only [facility] TURN DOWN WORKER [address] [place] [address] Anne Johnson CNM Social History Tobacco Use [...] of this encounter Results * Due to [place] state law, this organization might not be sharing negative HIV tests. * CULTURE, URINE, ROUTINE (08/06/2018 2:28 PM EDT) Bacteria culture (Urine) SEE NOTE [facility] Comment: CULTURE, URINE, ROUTINE MICRO NUMBER: [id number] TEST STATUS: FINAL SPECIMEN SOURCE: URINE, CLEAN CATCH SPECIMEN QUALITY: ADEQUATE RESULT: No Growth 08/06/2018 2:28 PM EDT 08/06/2018 11:41 PM EDT Narrative Resulting Agency Comment [id number] [facility] LABORATORY Final Result Performing Organization Address [facility] de Phone Number [facility] [address] [place] [address] * (ABNORMAL) URINALYSIS, COMPLETE INCLUDES DIPSTICK AND [...] 11:41 PM EDT Narrative Resulting Agency Comment [id number] [facility] LAB SAME DAY RESULT Final Resul t Performing Organization Address [facility] de Phone Number [facility] [address] [place] [address] * (ABNORMAL) 1 PROFILE WITH VZV (08/06/2018 [...] 11:41 PM EDT Narrative Resulting Agency Comment [id number] Anne Johnson CNM LABORATORY Final Result Performing Organization Address City/State/[facility] Co de Phone Number [facility] [address] [place] [address] documented in this encounter Visit Diagnoses Diagnosis Supervision of other normal , antepartum (HHS) Urine frequency Urinary frequency Screening for HIV (human immunodeficiency virus) Special screening examination for other specified viral diseases documented in this encounter Care Teams Leadership Program Internship Relationship Specialty Start Date End Date Scarlett Norris [address] [address] 10/30/17 documented as of this encounter
--- OUTSIDE RECORDS SUMMARY | 2024-12-20 14:03 | XMS_ITS | Encounter Summary ---
Author Organization [facility] Address [address] [place] [address] Care Team Providers Care Senior Linux Unix Engineer Name Role Phone Padmini Hamilton CNM Unavailable Unavailable Encounter Details Date Type Department Care Team (Late st Contact Info) Description 10/03/2017 Orders Only [facility] DRY TRANSFER WORKER [address] [facility] [address] [place] [address] Malka Amos CNM Social History Tobacco Use [...] of this encounter Procedures * Due to [place] state law, this organization might not be [...] in this encounter Results * Due to [place] [employer] law, this organization might not be sharing [...] 9:37 PM EDT Narrative Resulting Agency Comment [id number] Malka JOHNS LAB SAME DAY RESULT Final Re sult [facility] [address] [place] [address] * GLUCOSE, 1 HR GESTATIONAL SCREEN (50G CHALLENGE) (10/03/2017 9:12 AM EDT) Glucose^1H post 50 g glucose PO 89 <135 mg/dL [facility] 10/03/2017 9:12 AM EDT 10/03/2017 9:37 PM EDT Narrative Resulting Agency Comment [id number] Malka Amos CNM LABORATORY Final Result Performing Organization Address [facility] Co de Phone Number [facility] [address] [place] [address] documented in this encounter Visit Diagnoses Diagnosis Encounter for supervision of normal first in second trimester ([facility]) Supervision of normal first documented in this encounter Care Teams Senior Linux Unix Engineer Relationship Specialty Start Date End Date Padmini Hamilton CNM Printed Circuit Board Pcb Designer Certified Nurse Printed Circuit Board Pcb Designer 05/02/17 10/29/17 [address] [address] 10/30/17 documented as of this encounter
--- OUTSIDE RECORDS SUMMARY | 2024-12-20 14:03 | XMS_ITS | Encounter Summary ---
Author Organization [facility] Address [address] [place] [address] Care Team Providers Care Dietitian Chief Name Role Phone Unavailable Primary Care Provider Unavailabl e Encounter Details Date Type Department Care Team (Late st Contact Info) Description 04/20/2018 Telephone [facility] MOTOR COACH TOUR OPERATOR [address] [facility] [address] [place] [phone] Malka Amos CNM Social History Tobacco Use [...] on filedocumented in this encounter Care Teams Dietitian Chief Relationship Specialty Start Date End Date Scarlett Norris [address] [address] 10/30/17 documented as of this encounter
--- OUTSIDE RECORDS SUMMARY | 2024-12-20 14:04 | XMS_ITS | Clinical Summary ---
Author Organization [facility] Address [address] [place] [address] Care Team Providers Care Web Marketing Intern Name Role Phone Unavailable Primary Care Provider [...]
--- OUTSIDE RECORDS SUMMARY | 2024-12-20 14:04 | XMS_ITS | Encounter Summary ---
Author Organization [facility] Address [address] [place] [address] Care Team Providers Care Folder Machine Operator Name Role Phone Unavailable Primary Care Provider Unavailabl e Encounter Details Date Type Department Care Team (Late st Contact Info) Description 04/17/2018 Orders Only [facility] PUBLIC HEALTH REPRESENTATIVE [address] [place] [address] Gisselle Urena CNM [address] [place] [address] Social History Tobacco Use Types Packs/Day Years [...] this encounter Procedures * Due to [place] [employer] law, this organization might not be sharing negative HIV tests. Procedure Name Priority Date/Time Associated Diagnosis Comments THINPREP TIS PAP REFLEX HPV MRNA E6/E7, CT/NG, TRICH Routine 04/17/2018 2:35 PM EST Screening for malignant neoplasm of cervix HPV RNA, HIGH RISK, E6/E7, TMA Routine 04/17/2018 2:35 PM EST documented in this encounter Results * Due to [place] [employer] law, this organization might not be sharing negative HIV tests. * HPV RNA, HIGH RISK, E6/E7, TMA (04/17/2018 2:35 PM EST) HPV MRNA E6/E7 Not Detected Not Detected [facility] Comment: This test was performed using the APTIMA HPV Assay ([employer] This assay detects E6/E7 viral messenger RNA (mRNA) from 14 high-risk HPV types (16,18,31,33,35,39,45,51,52,56,58,59,66,68). The analytical performance characteristics of this assay have been determined by [employer]. The modifications have not been cleared or approved by the FDA. This assay has been validated pursuant to the CLIA regulations and is used for clinical purposes. 04/17/2018 2:35 PM EST 04/17/2018 10:21 PM EST Gisselle Urena [facility] Final Resu lt [facility] [address] [place] [address] * (ABNORMAL) THINPREP TIS PAP REFLEX HPV [...] evaluated with computer assisted technology. [facility] It Senior Software Engineer Java (Cvx/Vag) FAWN HUSSEIN(ASCP) CT screening location: [place] [address] [facility] Pathologist (Cvx/Vag) Kaitlyn Limon M.D., Ph.D., Board Certified in Anatomic and Clinical Pathology and Cytopathology (electronic signature) Consulting Pathologist [facility]ology [address] [place] [address] [facility] COMMENT SEE NOTE [facility] Comment: EXPLANATORY NOTE: The Pap is [...] NOT DETECTED [facility] COMMENT SEE NOTE [facility] Comment: This test was performed using the APTIMA COMBO2 Assay ([employer] The analytical performance characteristics of this assay, when used to test SurePath specimens have been determined by [employer]. Trichomonas vaginalis rRNA NOT DETECTED NOT DETECTED [facility] Comment: This test was performed using the APTIMA(R) Trichomonas vaginalis assay ([employer](R)). For more information on this test, go to: http://education.Yipit.Carbon Voyage/faq/Trichomonastma The performance characteristics of this assay when used to test SurePath(R) specimens have been determined by [employer]. Performance characteristics refer to the analytical performance of this test. 04/17/2018 2:35 PM EST 04/17/2018 10:21 PM EST Narrative Resulting Agency Comment [id number] Gisselle Urena CNM PATHOLOGY-INTERFACED Final Result [id number] [address] [place] [address] documented in this encounter Visit Diagnoses Diagnosis Screening for malignant neoplasm of cervix Screening for malignant neoplasm of the cervix documented in this encounter Care Teams Folder Machine Operator Relationship Specialty Start Date End Date Scarlett Norris [address] [address] 10/30/17 documented as of this encounter
== END 2024-12-20 11:40 | disposition home or self-care (01) ==
LOC: HO.HMCFMS 11:20
PROVIDERS: Visit Provider Student in an Organized Health Care Education/Training Program
DX: D50.9 Iron deficiency anemia, unspecified (principal); N32.81 Overactive bladder; R74.8 Abnormal levels of other serum enzymes

== ENCOUNTER → 2024-12-20 11:19 | Outpatient (BNVA) | payer OTHER, SELFPAY | PROVIDERS: Visit Provider Student in an Organized Health Care Education/Training Program | DX: R74.8 Abnormal levels of other serum enzymes (principal); N32.81 Overactive bladder; D50.9 Iron deficiency anemia, unspecified | CPT/HCPCS: 99212 ==

== ENCOUNTER 2025-01-13 11:23 | Outpatient (AMB) | payer OTHER, SELFPAY ==
--- NOTE | 2025-01-13 11:30 | MHC.PC.OV ---
Vital Signs 01/13/25 11:33 Height 5 ft 4.37 in Weight 165 lb 2 oz BMI 28.0 BP 115/71 Blood Pressure Location Rt brachial Position Sitting Respiration 17 Pulse 68 Pulse Source Monitor Temp 98.3 F Temp Source Oral Pulse Oximetry (%) 96 Oxygen Delivery Method Room Air Intake Visit Reasons: 1 mo f/u Intake Note: follow up Art Consultant Required: No Accompanied by: Self / Same As Patient Allergies No Known Allergies Allergy (Verified 01/13/25 11:32) Medication List - Last Reconciled 01/13/25 by Eric Boothe MD ascorbic acid (vitamin C) 500 mg PO DAILY ferrous sulfate 325 mg PO DAILY vibegron 75 mg PO DAILY Tobacco use date assessed: 12/20/24 Dental Screening Dental Screen Date: 12/20/24 HPI HPI Comments History of Present Illness Details History of Present Illness The patient is a 29 year old female presenting for a follow-up visit. overactive bladder follow-up since starting medication she is happy with the medication she says it is working she denies any side effects Iron deficiency anemia She feels she has more energy and is feeling a lot better now that she is taking her medication to supplement iron sleep study Patient has not been contacted by sleep study referral Medications: -Vibegron - Iron supplement Past Medical History Health Maintenance - The patient reports taking iron supplements. [facility] Medical History (Updated 01/13/25 @ 12:02 by Eric Boothe MD) Iron deficiency anemia Overactive bladder Sensation of pressure in bladder area Frequency of micturition Fatigue Snoring Family History Father No problems noted. Mother No problems noted. Social History (Updated 01/13/25 @ 11:33 by Raffi Delarosa CMA) Housing: Apartment Alcohol intake: current Alcohol intake frequency: holidays/special occasions only Patient Tobacco Use Status: Never used Tobacco service: No Current occupational status: unemployed Cognitive needs: No Hearing needs: No Vision needs: No Questionnaire Thrive Questionnaire Date Thrive assessed: 11/29/24 I am a: Patient What is your living situation today?: I have a steady place to live Within the past 12 months, did the food you bought not last and you didn't have the money to get more?: Never true Within the past 12 months, did you worry whether your food would run out before you got money to buy more?: Never true Do you have trouble paying for medicines?: No Do you have trouble getting transportation to medical appointments?: No Do you have trouble paying your heating and electricity bill?: No Do you have trouble taking care of your child, family member or friend?: No Do you have trouble with day-to-day activities such as bathing, preparing meals, shopping, managing finances, etc.?: No Are you currently unemployed and looking for a job?: No Are you interested in more education?: No Please select the resources that you would like help with: None Currently or been in a relationship where the following occur: No concerns reported THRIVE Score: 0 Review of Systems Narrative Review of Systems 10-point ROS reviewed and negative except as noted in HPI Physical exam (Primary Care) Vital Signs: Last Vital Signs Temp 98.3 F 01/13/25 11:33 Pulse 68 01/13/25 11:33 Resp 17 01/13/25 11:33 BP 115/71 01/13/25 11:33 Pulse Ox 96 01/13/25 11:33 Oxygen Delivery Method Room Air 01/13/25 11:33 BMI result Body Mass Index 28.0 Tobacco/Smoking Status: Tobacco use Status Tobacco use date assessed 12/20/24 01/13/25 11:30 Patient Tobacco Use Status Never used Tobacco 01/13/25 11:33 Thrive Assessment: Date of Thrive Assessment Date Thrive assessed 11/29/24 01/13/25 11:30 Currently or been in a relationship where the following occur: No concerns reported Narrative Physical Exam General: Well-appearing, in no acute distress. Vital signs: Within normal limits. HEENT: Normocephalic, atraumatic. PERRLA, EOMI. Conjunctiva clear, sclera anicteric. Oropharynx clear, mucous membranes moist. TMs intact bilaterally. Neck: Supple, no lymphadenopathy, no thyromegaly, no JVD or carotid bruits. Cardiovascular: RRR, normal S1/S2, no murmurs, rubs, or gallops. Peripheral pulses 2+ and symmetric. No edema. Respiratory: Lungs clear to auscultation bilaterally, no wheezes, rales, or rhonchi. Normal effort. Abdomen: Soft, non-tender, non-distended. Normoactive bowel sounds. No hepatosplenomegaly, no masses. MSK: Full range of motion, no joint swelling or deformity. Normal gait. Skin: Warm, dry, intact. No rashes, lesions, or pallor. Neuro: Alert and oriented x3. Cranial nerves II-XII intact. Strength 5/5 throughout. Sensation intact. Reflexes 2+ symmetric. Normal coordination and gait. Psych: Appropriate mood and affect. Normal judgment and insight. Coding Level of Care Code Est Pt Level 3 (78617) Diagnoses Overactive bladder N32.81 Iron deficiency anemia D50.9 Assessment & Plan Assessment & Plan (1) Overactive bladder: Code(s): N32.81 - Overactive bladder Category: Medical (2) Iron deficiency anemia: Code(s): D50.9 - Iron deficiency anemia, unspecified Category: Medical Plan Consent Patient was informed and verbally consented to the use of an ambient scribe for clinic note documentation during this visit. Plan 1. overactive bladder N32.81 continue with current medication 2. iron deficiency anemia continue with current medication Discussion Notes I reviewed the patient's current medications, noting they are finding them helpful. she is also curious as to why she then received a call from a sleep study referral will take her to [facility] so she can get the phone number to give them a call Patient Instructions continue current medication for iron deficiency anemia and overactive bladder follow-up with me after sleep study. we will check iron levels in 3 months Medical Decision Making Total Time Statement Total time spent caring for the patient today includes pre-visit chart review, documentation, review of laboratory and diagnostic imaging results, medication reconciliation, medically necessary evaluation, counseling on diagnoses, care coordination, ordering appropriate tests and medications, review of tests performed by other providers, reporting test results to the patient, and communication with other healthcare providers.
[2025-01-13 11:33] VITALS: BP 115/71; PULSE 68; RESP 17; TEMP 36.8; O2SAT 96; BMI 28.0
--- OUTSIDE RECORDS SUMMARY | 2025-01-13 14:38 | XMS_ITS | Encounter Summary ---
Author Organization [facility] Address [address] [place] [address] Care Team Providers Care Wad Blanking Press Adjuster Name Role Phone Unavailable Primary Care Provider Unavailabl e Encounter Details Date Type Department Care Team ([facility] st Contact Info) Description 2018 Orders Only [facility] BOTTLE LABELER [address] [place] [address] Anne Johnson CNM Social History Tobacco Use [...] on file documented as of this encounter Functional Status * Questions Question Answer Date of Assessment Author I have been able to laugh an d see the funny side of things 0 2018 11:00 AM EDT Shahriar Page I have looked forward with e njoyment to things 0 2018 11:00 AM EDT Shahriar Page I have blamed myself unneces sarily when things went wrong 0 2018 11:00 AM EDT William Page ta I have been anxious or worri ed for no good reason 0 2018 11:00 AM EDT Shahriar Page I have felt scared or panick y for no good reason 0 2018 11:00 AM EDT Shahriar Page Things have been getting on top of me 0 12/2018 11:00 AM EDT Shahriar Page I have been so unhappy that I have had difficulty sleeping 0 2018 11:00 AM EDT Shahriar Page I have felt sad or miserable 0 2018 1 1:00 AM EDT Shahriar Page I have been so unhappy that I have been crying 0 2018 11:00 AM EDT Shahriar Page The thought of harming mysel f has occured to me 0 2018 11:00 AM EDT Shahriar Page * EPDS Score Question Answer Date of Assessment Author EPDS TOTAL SCORE-STAFF ENTERED 0 2018 11:00 AM EDT Shahriar Page INTERPRETATION-STAFF ENTERED Negative 2018 1 1:00 AM EDT Shahriar Page SUICIDE QUESTION (#10 >0)-ST AFF ENTERED Negative 2018 11:00 AM EDT Shahriar Page EPDS SUICIDE WARNING SCORE (#10>0)-STAFF ENTERED 0 2018 11:00 AM EDT Jo Ann Page documented as of this encounter Progress Notes * Berta Treviño RN - 08/11/2018 2:17 PM EDT To provider for review. Released to [employer]. documented in this encounter Plan of Treatment Not on file documented as of this encounter Procedures * Due to [place] law, this organization might not be sharing negative HIV tests. Procedure Name Priority Date/Time Associated Diagnosis Comments CHLAMYDIA TRACHOMATIS/N. GONORRHOEAE (GC) RNA, TMA (URINE) Routine 2018 2:28 PM EDT Supervision of other normal , antepartum Encounter for supervision of other normal in second trimester documented in this encounter Results * Due to [place] law, this organization might not be sharing negative HIV tests. * CHLAMYDIA TRACHOMATIS/N. GONORRHOEAE (GC) RNA, TMA (URINE) (2018 2:28 PM EDT) Chlamydia trachomatis rRNA NOT DETECTED NOT DETECTED [facility] Neisseria Gonorrhoeae rRNA NOT DETECTED NOT DETECTED [facility] COMMENT SEE NOTE [facility] Comment: This test was performed using the APTIMA COMBO2 Assay ([employer] The analytical performance characteristics of this assay, when used to test SurePath specimens have been determined by [employer]. 2018 2:28 PM EDT 08/11/2018 12:24 AM EDT Narrative Resulting Agency Comment [id number] Anne Johnson CNM LABORATORY Final Result [facility] [address] [place] [address] documented in this encounter Visit Diagnoses Diagnosis Encounter for supervision of other normal in second trimester (HHS) documented in this encounter Care Teams Wad Blanking Press Adjuster Relationship Specialty Start Date End Date Scarlett Norris [address] [address] 10/30/17 documented as of this encounter
--- OUTSIDE RECORDS SUMMARY | 2025-01-13 14:38 | XMS_ITS | Encounter Summary ---
Author Organization [facility] Address [address] [place] [address] Care Team Providers Care Educational Diagnostician Name Role Phone Unavailable Primary Care Provider Unavailabl e Encounter Details Date Type Department Care Team (Late st Contact Info) Description 11/10/2019 Orders Only [facility] ELECTRIC SWITCH REPAIRER [address] [place] [address] Gisselle Urena CNM [address] [place] [address] Social History Tobacco Use Types Packs/Day Years [...] AM EDT documented as of this encounter Functional Status * GENETIC QUESTIONS Question Answer Date of Assessment Author Spina Bifida, Anencephaly or Hydrocephaly? No 11/10/2019 11:13 AM Marie Stephens Heart disease or abnormality? No 11/10/2019 11:13 AM Marie Stephens Abn formation of bones or maxine dy structure (Club foot)? No 11/10/2019 11:13 AM Marie Stephens Muscular dystrophy or weakness? No 0 11:13 AM Marie Stephens Down syndrome or other chrom osomal abnormality? No 11/10/2019 11:13 AM Marie Stephens Stillbirth, , or childhood deaths? No 11/10/2019 11:13 AM Marie Stephens Two or more miscarriages or loss in the same person? No 11/10/2019 11:13 AM Marie Stephens The father of the baby is a first cousin or other blood relative? No 11/10/2019 11:13 AM Marie Stephens Fragile X, Autism or Learning Disability? No 11/10/2019 11:13 AM Marie Stephens Multiple births (ie, twins)? No 11/10/2019 1 1:13 AM Marie Stephens Known history of Cystic Fibrosis? No 020 11:13 AM Marie Stephens Known history of Sickle Cell? No 11/10/2019 11:13 AM Marie Stephens Known history of Thalassemia? No 11/10/2019 11:13 AM Marie Stephens Known history of Angelito's Chorea? No 11/2019 11:13 AM Marie Stephens Known history of Brigido Sachs/Kimberlee disease? No 11/10/2019 11:13 AM Marie Stephens Known history of Cleft lip/palate? No 2019 11:13 AM Marie Stephens Known history of Neurofibromatosis? No 11/09 11:13 AM Marie Stephens Known history of Polycystic kidney disease? Yes 11/10/2019 11:13 AM Marie Stephens Maternal metabolic disorder (PKU)? No 2019 11:13 AM Marie Stephens documented as of this encounter Plan of Treatment Not on file documented as of this encounter Results * Due to [place] state law, this organization might not be [...] a test for HCV RNA (test code 65597) is suggested. For additional information please refer to http://education.[employer]/faq/WMW38e0 (This link is being provided for informational/ educational purposes only.) 12/02/2019 1:40 PM EDT 12/02/2019 11:36 PM EDT Narrative Resulting Agency Comment [id number] Gisselle Urena CNM LABORATORY Final Resu lt [facility] [address] [place] [address] * (ABNORMAL) 1 PROFILE WITH VZV (12/02/2019 [...] RH(D) POSITIVE [facility] COMMENT SEE NOTE [facility] Comment: For additional information, please refer to http://education.[employer]/faq/NGH444 (This link is being provided for informational/ [...] 11:36 PM EDT Narrative Resulting Agency Comment [id number] Gisselle JOHNSM LABORATORY Final Resu lt Performing Organization Address City/[facility] Co de Phone Number [facility] [address] [place] [address] * CULTURE, URINE, ROUTINE (12/02/2019 1:40 PM EDT) Bacteria culture (Urine) SEE NOTE [facility] Comment: CULTURE, URINE, ROUTINE Micro Number: [id number] Test Status: Final Specimen Source: URINE Specimen Quality: Adequate Result: Growth of mixed gisela was isolated, suggesting probable contamination. No further testing will be performed. If clinically indicated, recollection using a method to minimize contamination, with prompt transfer to Urine Culture Transport Tube, is recommended. 12/02/2019 1:40 PM EDT 12/02/2019 11:36 PM EDT Narrative Resulting Agency Comment [id number] Gisselle Urena [facility] LABORAT[facility] Final Resu Performing Organization Address [facility] de Phone Number [facility] [address] [place] [address] * URINALYSIS, COMPLETE INCLUDES DIPSTICK AND MICROSCOPIC [...] 11:36 PM EDT Narrative Resulting Agency Comment [id number] Gisselle JOHNS LAB SAME DAY RESULT Final Result [facility] [address] [place] [address] documented in this encounter Visit Diagnoses Diagnosis Screening for human immunodeficiency virus Special screening examination for other specified viral diseases Urinary frequency , unspecified gestational age (HHS) documented in this encounter Care Teams Educational Diagnostician Relationship Specialty Start Date End Date Scarlett Norris [address] [address] 10/30/17 documented as of this encounter
--- OUTSIDE RECORDS SUMMARY | 2025-01-13 14:38 | XMS_ITS | Encounter Summary ---
Author Organization [facility] Address [address] [place] [address] Care Team Providers Care Seed Buyer Name Role Phone Unavailable Primary Care Provider Unavailabl e Encounter Details Date Type Department Care Team (Late st Contact Info) Description 10/29/2019 Orders Only [facility] [address] [place] [address] Gisselle Urena CNM [address] [place] [address] Social History Tobacco Use Types Packs/Day Years [...] of this encounter Procedures * Due to [place] state law, this organization might not be sharing negative HIV tests. Procedure Name Priority Date/Time Associated Diagnosis Comments VENIPUNCTURE Routine 10/29/2019 11:29 AM EDT Date of last menstrual period (LMP) unknown documented in this encounter Results * Due to [place] [employer] law, this organization might not be sharing negative HIV tests. * (ABNORMAL) HCG, (HUMAN CHORIONIC GONADOTROPIN), TOTAL, QUANTITATIVE (10/29/2019 11:29 AM EDT) HCG, Total, Quantitative [id number](H) mIU/mL [facility] Comment: Reference Range Non or premenopausal <5 Postmenopausal <10 Values from different assay methods may vary. The use of this assay to monitor or to diagnose patients with cancer or any condition unrelated to has not been cleared or approved by the FDA or the gas meter repairer of the assay. 10/29/2019 11:2 9 AM EDT 10/29/2019 1:57 PM EDT Narrative Resulting Agency Comment [id number] Gisselle Urena [facility] LAB SAME DAY RESULT Final Result Performing Organization Address City/State/[facility] Co de Phone Number [facility] [address] [place] [address] documented in this encounter Visit Diagnoses Diagnosis Date of last menstrual period (LMP) unknown documented in this encounter Care Teams Seed Buyer Relationship Specialty Start Date End Date Scarlett Norris [address] [address] 10/30/17 documented as of this encounter
--- OUTSIDE RECORDS SUMMARY | 2025-01-13 14:38 | XMS_ITS | Encounter Summary ---
Author Organization [facility] Address [address] [place] [address] Care Team Providers Care Wall Washer Name Role Phone Unavailable Primary Care Provider Unavailabl e Encounter Details Date Type Department Care Team ([facility] st Contact Info) Description 12/02/2019 Orders Only [facility] CABLE LACER [address] [place] [address] Gisselle Urena CNM [address] [place] [address] Social History Tobacco Use Types Packs/Day Years [...] PM EDT documented as of this encounter Functional Status * Questions Question Answer Date of Assessment Author I have been able to laugh an d see the funny side of things 0 12/02/2019 1:00 PM EDT Nga Hurst I have looked forward with e njoyment to things 0 12/02/2019 1:00 PM EDT Nga Hurst I have blamed myself unneces sarily when things went wrong 2 12/02/2019 1:00 PM EDT Tip Hurst I have been anxious or worri ed for no good reason 2 12/02/2019 1:00 PM EDT Nga Hurst I have felt scared or panick y for no good reason 1 12/02/2019 1:00 PM EDT Nga Hurst Things have been getting on top of me 3 03/2019 1:00 PM EDT Nga Hurst I have been so unhappy that I have had difficulty sleeping 1 12/02/2019 1:00 PM EDT Nga Hurst I have felt sad or miserable 1 12/02/2019 1 :00 PM EDT Nga Hurst I have been so unhappy that I have been crying 0 12/02/2019 1:00 PM EDT Nga Hurst The thought of harming mysel f has occured to me 0 12/02/2019 1:00 PM EDT Nga Hurst * EPDS Score Question Answer Date of Assessment Author EPDS TOTAL SCORE-STAFF ENTERED 10 12/02/2019 1:00 PM EDT Nga Hurst INTERPRETATION-STAFF ENTERED Positive 12/02/2019 1 :00 PM EDT gNa Hurst SUICIDE QUESTION (#10 >0)-ST AFF ENTERED Negative 12/02/2019 1:00 PM EDT Nga Hurst EPDS SUICIDE WARNING SCORE (#10>0)-STAFF ENTERED 0 12/02/2019 1:00 PM EDT Aaron Hurst documented as of this encounter Progress Notes * Berta Treviño, RN - 12/02/2019 1:40 PM EDT Problem list updated. documented in this encounter Plan of Treatment Not on file documented as of this encounter Procedures * Due to [place] [employer] law, this organization might not be sharing [...] in this encounter Results * Due to [place] [employer] law, this organization might not be sharing [...] 11:36 PM EDT Narrative Resulting Agency Comment [id number] Gisselle JOHNS LAB SAME DAY RESULT Final Result [facility] [address] [place] [address] * CULTURE, URINE, ROUTINE (12/02/2019 1:40 PM EDT) Bacteria culture (Urine) SEE NOTE [facility] Comment: CULTURE, URINE, ROUTINE Micro Number: [id number] Test Status: Final Specimen Source: URINE Specimen Quality: Adequate Result: Growth of mixed gisela was isolated, suggesting probable contamination. No further testing will be performed. If clinically indicated, recollection using a method to minimize contamination, with prompt transfer to Urine Culture Transport Tube, is recommended. 12/02/2019 1:40 PM EDT 12/02/2019 11:36 PM EDT Narrative Resulting Agency Comment [id number] Gisselle JOHNS LABORATORY Final Resu lt [facility] [address] [place] [address] * (ABNORMAL) 1 PROFILE WITH VZV (12/02/2019 1:40 PM EDT) Pathologist [facility] WBC 10.1 3.8 - 10.8 Thousand /uL [...] RH(D) POSITIVE [facility] COMMENT SEE NOTE [facility] Comment: For additional information, please refer to http://education.[employer]/faq/PDW773 (This link is being provided for informational/ [...] 11:36 PM EDT Narrative Resulting Agency Comment [id number] Gisselle Urena [facility] LABORATORY Final Resu lt [facility] [address] [place] [address] * HEPATITIS C AB WITH REFLEX TO [...] a test for HCV RNA (test code 37012) is suggested. For additional information please refer to http://education.[employer]/faq/ZUB59y6 (This link is being provided for informational/ educational purposes only.) 12/02/2019 1:40 PM EDT 12/02/2019 11:36 PM EDT Narrative Resulting Agency Comment [id number] Gisselle JOHNS LABORATORY Final Resu lt Performing Organization Address City/State/[facility] Co de Phone Number [facility] [address] [place] [address] documented in this encounter Visit Diagnoses Diagnosis , unspecified gestational age (HHS) Urinary frequency documented in this encounter Care Teams Wall Washer Relationship Specialty Start Date End Date Scarlett Norris [address] [address] 10/30/17 documented as of this encounter
--- OUTSIDE RECORDS SUMMARY | 2025-01-13 14:38 | XMS_ITS | Clinical Summary ---
Author Organization [facility] Address [address] [place] [address] Care Team Providers Care Aviation Mechanic Name Role Phone [facility] Primary Care Provider Allergies No known [...] migh t be different from the original. [facility] participant. Problem Noted Date Diagnosed Date Depression [...] 2 Left pelvic kidney Will deliver at [facility]. Sub specialty providers NICU consult [...] _N_avoid: misoprostol/pitocin/cervical gilliland Evaluation: After , the infant s condition will be evaluated by the [...] disease progression. Plan is for transfer to [facility] specialties clinic. ALLERGIES: Review of patient's allergies indicates no known allergies. Genetic Testing? Cystic Fibrosis: Patient declined this test. Sequential Screening: Patient declined this test. QNatal: Patient does not have any risk factors. Patient with echogenic foci on US. 09/04/18 PA for qnatal submitted via [employer] provider portal. Awaiting response. Patient does not [...] transfer of care to [facility] Clinc at [email or web address] Gender: Does patient prefer to know gender? [...] of Health Annual Screening 03/03/2024 COVID-19 Vaccine (2024- season) 2024 Influenza Vaccine (#1) 2024 01/17/2021, 2018 Pap Smear 04/11/2025 04/11/2022, 07/11/2021 DTaP,Tdap,and Td Vaccines (5 - Td or Tdap) 02/28/2031 02/28/2021, 04/07/2020, 12/31/2018, Additional history exists HIV Screening Completed 01/17/2021, 12/31/2018 Pneumococcal Vaccine: Pediatric (0-5 Years) and At-Risk Patients (6-50 Years) Aged Out No longer eligible based on patient's age to complete this topic Procedures * Due to [place] state law, this organization might not be sharing negative HIV tests. Procedure Name Priority Date/Time Associated Diagnosis Comments PAP Routine 04/11/2022 10:09 AM EST Cervical cancer screening from Last 3 Months or Most Recently Relevant to Health Maintenance Results * Due to [place] state law, this organization might not be sharing negative HIV tests. * Pap (04/11/2022 10:09 AM EST) Specimen Adequacy Satisfactory for evaluation [facility] MANUAL 3 3:53 PM EDT [facility]ime&TonicSELECT [facility] Power Content [facility] Pathologist Cytology Interpretation Negative for intraepithelial lesion or malignancy. [facility] MANUAL 3 3:53 PM EDT [facility]OK Power Content [facility] at 1553 EDT Comment:This is the result o f a morphological screening test with an inherent possibility of a false negative interpretation. Molecular Biologist Statement This Pap test was examined by the [employer], [employer], [place], [place]. This Pap test was examined in accordance with the [facility] Cytopathology Laboratory written policy, which incorporates all CLIA mandates. Current screening guidelines can be found in [place]: A Cancer Journal for Clinicians 2020;70:321-346. Current ASCCP management guidelines for abnormal Pap tests are published in the Journal Lower Genital Tract Disease Volume 2020;24:102-131. [facility] MANUAL 3 3:53 PM EDT [employer] [facility] Clinical History REPEAT PAP [facility] MANUAL 3 3:53 PM EDT [facility] Power Content [facility] Resulting Agency Case was signed out at [facility], Department of Pathology, Biotech 3 CLIA [id number] [facility] MANUAL 3 3:53 PM EDT [facility]ITALrubberitSELECT [facility] Power Content [facility] Report Header Gynecologic Cytology Report Case: [id number] Authorizing Provider: ELODIA Mayo Collected: 04/11/2022 1009 Ordering Location: [facility] Received: 04/11/2022 1133 [facility] Women's [facility] First Screen: Melisa Perkins Rescreen: January Mera Specimen: Screening ThinPrep Pap, Cervix/Endocervix 3 3:53 PM EDT [facility]ITALrubberitSELECT [facility] Power Content [facility] Brushing Cervix uteri structure / Unknown Non-Blood Collection / Unknown 04/11/2022 10:09 AM EST 04/11/2022 11:33 AM EST us Annette [facility] PATHOLOGY/CYTOLOGY ORDERABL ES Final Result [facility] [address] [place] [id number], from Last 3 Months or Most Recently Relevant to Health Maintenance Insurance [facility] MEDICAID Advance Directives * Full Code (Latest Code Status on File) Date Activated Date Inactivated Comments 05/23/2021 1:40 AM 05/25/2021 8:52 PM * Full Code Date Activated Date Inactivated Comments 01/20/2019 3:37 AM 01/22/2019 8:34 PM Care Teams Aviation Mechanic Relationship Specialty Start Date End Date [facility] [address] [place] [id number] PCP - General Family Medicine 01/19/19
--- OUTSIDE RECORDS SUMMARY | 2025-01-13 14:38 | XMS_ITS | Encounter Summary ---
Author Organization [facility] Address [address] [place] [address] Care Team Providers Care Title Assistant Name Role Phone Unavailable Primary Care Provider Unavailabl e Encounter Details Date Type Department Care Team ([facility] st Contact Info) Description 12/02/2019 Orders Only [facility] SLATE CUTTER OPERATOR [address] [facility] [address] [place] [address] Mihir Marcus NP Social History Tobacco Use Types Packs/Day [...] ENTERED Positive 12/02/2019 1 :00 PM EDT Nga Hurst SUICIDE QUESTION (#10 >0)-ST AFF ENTERED Negative 12/02/2019 1:00 PM EDT Nga Hurst EPDS SUICIDE WARNING SCORE (#10>0)-STAFF ENTERED 0 12/02/2019 1:00 PM EDT Aaron Hurst documented as of this encounter Progress Notes * Mihir Marcus - 12/02/2019 2:44 PM EDT Abnormal pap, needs colposcopy * Halle Hernández, RN - 12/02/2019 2:44 PM EDT See TE 12/07/19 documented in this encounter Plan of Treatment Not on file documented as of this encounter Procedures * Due to [facility] law, this organization might not be sharing negative HIV tests. Procedure Name Priority Date/Time Associated Diagnosis Comments THINPREP TIS PAP REFLEX HPV MRNA E6/E7, CHLAMYDIA/N.GONORR HOEAE Routine 12/02/2019 2:44 PM EDT Encounter for gynecological examination without abnormal finding documented in this encounter Results * Due to [facility] law, this organization might not be sharing negative HIV tests. * (ABNORMAL) THINPREP TIS PAP REFLEX HPV MRNA E6/E7, CHLAMYDIA/N.GONORRHOEAE (12/02/2019 2:44 PM EDT) Clinical information [id number] [facility] Date last menstrual period [facility] [...] evaluated with computer assisted technology. [facility] Medical Staff Manager (Cvx/Vag) GSG, CT(ASCP) CT screening location: [place] [address] [facility] Pathologist (Cvx/Vag) Tiara Lloyd M.D.,PhD, Board Certified in Anatomic and Clinical Pathology and Cytopathology (electronic signature) Consulting Pathologist [facility] Pathology [address] [place] [address] [facility] COMMENT SEE NOTE [facility] [...] NOT DETECTED [facility] COMMENT SEE NOTE [facility] Comment: The analytical performance characteristics of this assay, when used to test SurePath(TM) specimens have been determined by [employer]. The modifications have not been cleared or approved by the FDA. This assay has been validated pursuant to the CLIA regulations and is used for clinical purposes. For additional information, please refer to https://education.[employer]Virtual View App/faq/COJ943 (This link is being provided for information/ educational purposes only.) Cervical 12/02/2019 2:44 PM EDT 12/03/2019 5:53 AM EDT Narrative Resulting Agency Comment [id number] us Mihir Marcus NP PATHOLOGY-INTERFACED Final Res ult [facility] [address] [place] [address] documented in this encounter Visit Diagnoses Diagnosis Encounter for gynecological examination without abnormal finding Routine gynecological examination documented in this encounter Care Teams Title Assistant Relationship Specialty Start Date End Date Scarlett Norris [address] [address] 10/30/17 documented as of this encounter
--- OUTSIDE RECORDS SUMMARY | 2025-01-13 14:38 | XMS_ITS | Encounter Summary ---
Author Organization [facility] Address [address] [place] [address] Care Team Providers Care Machines Technician Name Role Phone Unavailable Primary Care Provider Unavailabl e Encounter Details Date Type Department Care Team ([facility] st Contact Info) Description 03/08/2020 Orders Only [facility] COVER REMOVER [address] [facility] [address] [place] [address] Cha Qureshi NP [address] [place] [address] Social History Tobacco Use Types Packs/Day Years [...] encounter Procedures * Due to [place] [employer] law, this organization might not be sharing negative HIV tests. Procedure Name Priority Date/Time Associated Diagnosis Comments VENIPUNCTURE Routine 03/08/2020 10:18 AM EST Encounter for supervision of normal , antepartum, unspecified VENIPUNCTURE Routine 03/08/2020 10:18 AM EST Encounter for supervision of normal , antepartum, unspecified documented in this encounter Results * Due to [place] [employer] law, this organization might not be sharing negative HIV tests. * GLUCOSE, 1 HR GESTATIONAL SCREEN (50G CHALLENGE) (03/08/2020 10:18 AM EST) Glucose^1H post 50 g glucose PO 110 <135 mg/dL [facility] 03/08/2020 10:1 8 AM EST 03/09/2020 1:18 AM EST Narrative Resulting Agency Comment [id number] Cha Qureshi NP LABORATORY Final Result Performing Organization Address [facility] Co de Phone Number [facility] [address] [place] [address] * (ABNORMAL) CBC INCLUDES DIFFERENTIAL AND PLATELET [...] 1:18 AM EST Narrative Resulting Agency Comment [id number] us Cha Qureshi LOTTERY OFFICE MANAGER LAB SAME DAY RESULT Final Re sult Performing Organization Address City/State/[facility] Co de Phone Number [facility] [address] [place] [address] documented in this encounter Visit Diagnoses Diagnosis Encounter for supervision of normal , antepartum, unspecified ([facility]) documented in this encounter Care Teams Machines Technician Relationship Specialty Start Date End Date Scarlett Norris [address] [address] 10/30/17 documented as of this encounter
--- OUTSIDE RECORDS SUMMARY | 2025-01-13 14:38 | XMS_ITS | Encounter Summary ---
Author Organization [facility] Address [address] [place] [address] Care Team Providers Care Carboy Filler Name Role Phone Lucretia Salas MD Primary Care Provider [phone] Padmini Hamilton CNM Unavailable Unavailable Encounter Details Date Type Department Care Team (Late st Contact Info) Description 04/14/2017 Orders Only [facility] CARPET MEASURER [address] [facility] [address] [place] [address] Padmini Hamilton CNM Social History Tobacco Use [...] of this encounter Procedures * Due to [place] state law, this organization might not be sharing negative HIV tests. Procedure Name Priority Date/Time Associated Diagnosis Comments HCG, TOTAL, QL Routine 04/14/2017 12:16 PM EST Unconfirmed documented in this encounter Results * Due to [place] state law, this organization might not be [...] 12:15 AM EST Narrative Resulting Agency Comment [id number] Padmini Hamilton CNM LAB SAME DAY RESULT Final Re sult Performing Organization Address [facility] Co de Phone Number [facility] [address] [place] [address] * CULTURE, URINE, ROUTINE (04/28/2017 2:52 PM EST) Bacteria culture (Urine) SEE NOTE [facility] Comment: CULTURE, URINE, ROUTINE MICRO NUMBER: [id number] TEST STATUS: FINAL SPECIMEN SOURCE: URINE SPECIMEN QUALITY: ADEQUATE RESULT: No Growth 04/28/2017 2:52 PM EST 04/29/2017 12:15 AM EST Narrative Resulting Agency Comment [id number] Padmini Hamilton [facility] LABORATORY Final Result Performing Organization Address [facility] Co de Phone Number [facility] [address] [place] [address] * (ABNORMAL) 1 PROFILE WITH VZV (04/28/2017 [...] 12:15 AM EST Narrative Resulting Agency Comment [id number] Padmini Hamilton CNM LABORATORY Final Result Performing Organization Address [facility] Co de Phone Number [facility] [address] [place] [address] * (ABNORMAL) HCG, TOTAL, QL (04/14/2017 12:16 PM EST) HCG, Qualitative (Screen) POSITIVE( A) [facility] Comment: Reference Range Non-: Negative : Positive 04/14/2017 12:1 6 PM EST 04/14/2017 4:51 PM EST Narrative Resulting Agency Comment [id number] Padmini Hamilton CNM LAB SAME DAY RESULT Final Re sult Performing Organization Address [facility] Co de Phone Number [facility] [address] [place] [address] documented in this encounter Visit Diagnoses Diagnosis Unconfirmed examination or test, unconfirmed Supervision of normal first , antepartum ([facility]HS) Urine frequency Urinary frequency Screening for HIV (human immunodeficiency virus) Special screening examination for other specified viral diseases documented in this encounter Care Teams Carboy Filler Relationship Specialty Start Date End [place] [address] PCP - General Pediatrics 04/14/17 04/14/17 Padmini Hamilton CNM [address] [address] Behavioral Intervention Specialist Certified Nurse Behavioral Intervention Specialist 05/02/17 Scarlett Norris [address] [address] 10/30/17 documented as of this encounter
--- OUTSIDE RECORDS SUMMARY | 2025-01-13 14:38 | XMS_ITS | Encounter Summary ---
Author Organization [facility] Address [address] [place] [address] Care Team Providers Care Teacher [employer] Name Role Phone Padmini Hamilton CNM Unavailable Unavailable Encounter Details Date Type Department Care Team (Late st Contact Info) Description 10/27/2017 Orders Only [facility] SEARCH ENGINE OPTIMIZATION SPECIALIST [address] [facility] [address] [place] [address] Daya Urias NP Social History Tobacco Use [...] of this encounter Procedures * Due to [place] state law, this organization might not be sharing negative HIV tests. Procedure Name Priority Date/Time Associated Diagnosis Comments CULTURE, URINE, ROUTINE Routine 10/27/2017 2:27 PM EDT Encounter for supervision of normal first in third trimester documented in this encounter Results * Due to [place] state law, this organization might not be sharing negative HIV tests. * CULTURE, URINE, ROUTINE (10/27/2017 2:27 PM EDT) Bacteria culture (Urine) SEE NOTE [facility] Comment: CULTURE, URINE, ROUTINE MICRO NUMBER: [id number] TEST STATUS: FINAL SPECIMEN SOURCE: URINE SPECIMEN QUALITY: ADEQUATE RESULT: Multiple organisms present, each less than 10,000 CFU/mL. These organisms, commonly found on external and internal genitalia, are considered to be colonizers. No further testing performed. 10/27/2017 2:27 PM EDT 10/27/2017 11:02 PM EDT Narrative Resulting Agency Comment [id number] us Daya Urias NP LABORATORY Final Result Performing Organization Address City/State/[facility] Co de Phone Number [facility] [address] [place] [address] documented in this encounter Visit Diagnoses Diagnosis Encounter for supervision of normal first in third trimester ([facility]) Supervision of normal first documented in this encounter Care Teams Teacher [employer] Relationship Specialty Start Date End Date Padmini Hamilton CNM Ethanol Maintenance Mechanic Certified Nurse Ethanol Maintenance Mechanic 05/02/17 10/29/17 Scarlett Norris [address] [address] 10/30/17 documented as of this encounter
--- OUTSIDE RECORDS SUMMARY | 2025-01-13 14:38 | XMS_ITS | Encounter Summary ---
Author Organization [facility] Address [address] [place] [address] Care Team Providers Care Diesel Bus Mechanic Name Role Phone Padmini Hamiltno CNM Unavailable Unavailable Encounter Details Date Type Department Care Team (Late st Contact Info) Description 04/28/2017 Orders Only [facility] INSULATOR HELPER [address] [facility] [address] [place] [address] Padmini Hamilton, RICHARD Social History Tobacco Use [...] this encounter Procedures * Due to [place] [employer] law, this organization might not be sharing [...] this encounter Results * Due to [place] [employer] law, this organization might not be sharing [...] 12:15 AM EST Narrative Resulting Agency Comment [id number] us Padmini Hamitlon CNM LAB SAME DAY RESULT Final Re sult [facility] [address] [place] [address] * CULTURE, URINE, ROUTINE (04/28/2017 2:52 PM EST) Bacteria culture (Urine) SEE NOTE [facility] Comment: CULTURE, URINE, ROUTINE MICRO NUMBER: [id number] TEST STATUS: FINAL SPECIMEN SOURCE: URINE SPECIMEN QUALITY: ADEQUATE RESULT: No Growth 04/28/2017 2:52 PM EST 04/29/2017 12:15 AM EST Narrative Resulting Agency Comment [id number] Padmini Hamilton NAT LABORATORY Final Result [facility] [address] [place] [address] * (ABNORMAL) 1 PROFILE WITH VZV (04/28/2017 [...] 12:15 AM EST Narrative Resulting Agency Comment [id number] Padmini Hamilton CNM LABORATORY Final Result Performing Organization Address City/State/[facility] Co de Phone Number [facility] [address] [place] [address] documented in this encounter Visit Diagnoses Diagnosis Supervision of normal first , antepartum ([facility]) Urine frequency Urinary frequency Screening for HIV (human immunodeficiency virus) Special screening examination for other specified viral diseases documented in this encounter Care Teams Diesel Bus Mechanic Relationship Specialty Start Date End Date Padmini Hamilton CNM Computer Forensics Examiner Certified Nurse Computer Forensics Examiner 05/02/17 10/29/17 Scarlett Norris [address] [address] 10/30/17 documented as of this encounter
--- OUTSIDE RECORDS SUMMARY | 2025-01-13 14:38 | XMS_ITS | Encounter Summary ---
Author Organization [facility] Address [address] [place] [address] Care Team Providers Care Head Teller Name Role Phone Unavailable Primary Care Provider Unavailabl e Encounter Details Date Type Department Care Team (Late st Contact Info) Description 04/19/2020 Orders Only [facility] STUDY COORDINATOR [address] [facility] [address] [place] [address] Gisselle Urena CNM [address] [place] [address] Social History Tobacco Use Types Packs/Day Years [...] on filedocumented in this encounter Care Teams Head Teller Relationship Specialty Start Date End Date Scarlett Norris [place] [phone] 10/30/17 documented as of this encounter
--- OUTSIDE RECORDS SUMMARY | 2025-01-13 14:38 | XMS_ITS | Encounter Summary ---
Author Organization [facility] Address [address] [place] [address] Care Team Providers Care Trimming Machine Set Up Operator Name Role Phone Unavailable Primary Care Provider Unavailabl e Encounter Details Date Type Department Care Team ([facility] st Contact Info) Description 02/23/2020 Orders Only [facility] CAMPUS ADMINISTRATOR [address] [facility] [address] [place] [address] Cha Qureshi NP [address] [place] [address] Social History Tobacco Use Types Packs/Day Years [...] this encounter Procedures * Due to [place] [employer] law, this organization might not be sharing negative HIV tests. 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 documented in this encounter Results * Due to [place] [employer] law, this organization might not be sharing [...] 11:08 PM EST Narrative Resulting Agency Comment [id number] Cha Qureshi NP LABORATORY Final Result Performing Organization Address City/State/[facility] Co de Phone Number [facility] [address] [place] [address] documented in this encounter Visit Diagnoses Diagnosis 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
--- OUTSIDE RECORDS SUMMARY | 2025-01-13 14:38 | XMS_ITS | Encounter Summary ---
Author Organization [facility] Address [address] [place] [address] Care Team Providers Care Book Sewer Name Role Phone Padmini Hamilton CNM Unavailable Unavailable Encounter Details Date Type Department Care Team ([facility] st Contact Info) Description 05/30/2017 Orders Only [facility] SOLAR SALES REP [address] [facility] [address] [place] [address] Manuela Peng CNM [address] [place] [address] Social History Tobacco Use Types Packs/Day Years [...] encounter Procedures * Due to [place] [employer] law, this organization might not be sharing negative HIV tests. Procedure Name Priority Date/Time Associated Diagnosis Comments THINPREP TIS PAP REFLEX HPV MRNA E6/E7, CT/NG, TRICH Routine 05/30/2017 10:51 AM EDT Encounter for supervision of normal first in first trimester documented in this encounter Results * Due to [place] [employer] law, this organization might not be sharing [...] evaluated with computer assisted technology. [facility] Pattern Hanger (Cvx/Vag) ALS CT(ASCP) CT screening location: [place] [address] [facility] Pathologist (Cvx/Vag) Matteo Pack M.D. Direct , Board Certified in Anatomic and Clinical Pathology and Cytopathology (electronic signature) Consulting Pathologist [facility] [address] [place] [phone] [facility] COMMENT SEE NOTE [facility] [...] was performed using the APTIMA COMBO2 Assay ([employer] The analytical performance characteristics of this assay, when used to test SurePath specimens have been determined by [employer]. Trichomonas vaginalis rRNA NOT DETECTED NOT DETECTED [facility] Comment: This test was performed using the APTIMA(R) Trichomonas vaginalis assay ([employer]ii[employer](R)). For more information on this test, go to: http://education.Waste2T[employer]ity.Zenogen/faq/Trichomonastma The performance characteristics of this assay when used to test SurePath(R) specimens have been determined by [employer]. Performance characteristics refer to the analytical performance of this test. 05/30/2017 10:5 1 AM EDT 05/30/2017 7:52 PM EDT Narrative Resulting Agency Comment [id number] us Manuela Peng CNM PATHOLOGY-INTERFACED Final Res ult [facility] [address] [place] [address] documented in this encounter Visit Diagnoses Diagnosis Encounter for supervision of normal first in first trimester ([facility]) Supervision of normal first documented in this encounter Care Teams Book Sewer Relationship Specialty Start Date End Date Padmini Hamilton CNM Power Technician Certified Nurse Power Technician 05/02/17 10/29/17 Scar[address] Norris [address] [address] 10/30/17 documented as of this encounter
--- OUTSIDE RECORDS SUMMARY | 2025-01-13 14:39 | XMS_ITS | Clinical Summary ---
Author Organization [facility] Address [address] [place] [address] Care Team Providers Care Treatment Technician Name Role Phone Unavailable Primary Care [...] History of anomaly in prior , currently 12/23/2019 06/26/2020 Supervision of normal 11/10/2019 06/26/2020 Overview (05/16/2020): Provider Name: Ayanna [...] 16 cm), Vertex renal anomaly, single gestation 09/24/2018 12/02/2019 Echogenic intracardiac focus of fetus on ultrasound 09/24/2018 12/02/2019 Supervision of other normal , antepartum 08/06/2018 12/02/2019 Overview (11/12/2018): Provider Name: CNM - OB1 Scheduled with [...] disease progression. Plan is for transfer to [facility] specialties clinic. ALLERGIES: Review of patient's allergies indicates no known allergies. Genetic Testing? Cystic Fibrosis: Patient declined this test. Sequential Screening: Patient declined this test. QNatal: Patient does not have any risk factors. Patient with echogenic foci on US. 09/04/18 PA for qnatal submitted via [employer] provider portal. Awaiting response. Patient does not [...] transfer of care to Specialties Clinc at [facility]. Gender: Does patient prefer to know gender? Yes, its a boy! Supervision of normal 04/29/2017 08/06/2018 Overview (12/24/2017): Provider Name: OB1 [...] - FE BID Third Trimester: GBS: Obtained [facility] 11/17/17 Negative Vaccines: Influenza: no TDaP: [...] this topic Procedures * Due to [place] [employer] / [employer] law, this organization might not be sharing [...] Health Maintenance Results * Due to [place] [employer] / [employer] law, this organization might not be sharing negative HIV tests. * (ABNORMAL) THINPREP TIS PAP REFLEX HPV MRNA E6/E7, CHLAMYDIA/N.GONORRHOEAE (12/02/2019 2:44 PM EDT) Clinical information [id number] [facility] Date last menstrual period [facility] [...] Smear Low Grade Squamous Intraepithelial Lesion (LSIL)(A) [facility] Cytology study comment (Cvx/Vag) This Pap test has been evaluated with computer assisted technology. [facility] Tai Chi Instructor (Cvx/Vag) GSG, CT(ASCP) CT screening location: [place] [address] [facility] Pathologist (Cvx/Vag) Tiara Lloyd M.D.,PhD, Board Certified in Anatomic and Clinical Pathology and Cytopathology (electronic signature) Consulting Pathologist [facility] Pathology [address] [place] [address] [facility] COMMENT SEE NOTE [facility] Comment: EXPLANATORY NOTE: The Pap is a [...] Chlamydia trachomatis rRNA NOT DETECTED NOT DETECTED [facility] Neisseria Gonorrhoeae rRNA NOT DETECTED NOT DETECTED [facility] COMMENT SEE NOTE [facility] Comment: The analytical performance characteristics of this assay, when used to test SurePath(TM) specimens have been determined by [employer]. The modifications have not been cleared or approved by the FDA. This assay has been validated pursuant to the CLIA regulations and is used for clinical purposes. For additional information, please refer to https://education.[employer]/faq/YLJ664 (This link is being provided for information/ educational purposes only.) Cervical 12/02/2019 2:44 PM EDT 12/03/2019 5:53 AM EDT Narrative Resulting Agency Comment [id number] us Mihir Marcus NP PATHOLOGY-INTERFACED Final Res ult [facility] [address] [place] [address] * HEPATITIS C AB WITH REFLEX TO [...] a test for HCV RNA (test code 53327) is suggested. For additional information please refer to http://education.[employer]/faq/RFT51c6 (This link is being provided for informational/ educational purposes only.) 12/02/2019 1:40 PM EDT 12/02/2019 11:36 PM EDT Narrative Resulting Agency Comment [id number] Gisselle JOHNS LABORATORY Final Resu lt [facility] [address] [place] [address] from Last 3 Months or Most Recently Relevant to Health Maintenance Insurance MEDICAID Care Teams Treatment Technician Relationship Specialty Start Date End Date Scarlett Norris [address] [address] 10/30/17
--- OUTSIDE RECORDS SUMMARY | 2025-01-13 14:39 | XMS_ITS | Encounter Summary ---
Author Organization [facility] Address [address] [place] [address] Care Team Providers Care Electronics System Mechanic Name Role Phone Unavailable Primary Care Provider Unavailabl e Encounter Details Date Type Department Care Team (Late st Contact Info) Description 07/15/2018 Orders Only [facility] PHOTOGRAPHIC PLATEMAKER [address] [facility] [address] [place] [address] Anne Johnson CNM Social History Tobacco Use [...] (HHS) documented in this encounter Care Teams Electronics System Mechanic Relationship Specialty Start Date End Date Scarlett Norris [address] [address] 10/30/17 documented as of this encounter
--- OUTSIDE RECORDS SUMMARY | 2025-01-13 14:39 | XMS_ITS | Encounter Summary ---
Author Organization [facility] Address [address] [place] [address] Care Team Providers Care Pre Billing Clinician Name Role Phone Unavailable Primary Care Provider Unavailabl e Encounter Details Date Type Department Care Team (Late st Contact Info) Description 08/31/2020 Orders Only [facility] Pre-Admission Testing [address] [place] [address] Alva Vega NP Social History Tobacco Use [...] encounter Procedures * Due to [place] [employer] law, this organization might not be sharing [...] encounter Results * Due to [place] [employer] law, this organization might not be sharing negative HIV tests. * FERRITIN (08/31/2020 10:02 AM EDT) Ferritin 19 16 - 154 ng/mL [facility] 08/31/2020 10:0 2 AM EDT 08/31/2020 4:10 PM EDT Narrative Resulting Agency Comment [id number] lAva Vega NP LABORATORY Final Result [facility] [address] [place] [address] * (ABNORMAL) IRON PROFILE (IRON/TIBC), SERUM (08/31/2020 10:02 AM EDT) Pathologist [facility] Iron 35(L) 40 - 190 mcg/dL [facility] Iron binding capacity 334 250 - 450 mcg/dL (calc) [facility] Iron saturation 10(L) 16 - 45 % (calc) [facility] 08/31/2020 10:0 2 AM EDT 08/31/2020 4:10 PM EDT Narrative Resulting Agency Comment [id number] Alva Vega NP LABORATORY Final Result Performing Organization Address City/[facility] Co de Phone Number [facility] [address] [place] [address] * CBC INCLUDES DIFFERENTIAL AND PLATELET COUNT (08/31/2020 10:02 AM EDT) Pathologist [facility] WBC 7.3 3.8 - 10.8 Thousand/u L [...] 4:10 PM EDT Narrative Resulting Agency Comment [id number] us Alva Vega NP LAB SAME DAY RESULT Final Resul t [facility] [address] [place] [address] * (ABNORMAL) BASIC METABOLIC PANEL WITH (GFR) [...] needs for GFR calculation. Resulting Agency Comment [id number] us Alva Vega NP LABORATORY Final Result [facility] [address] [place] [address] documented in this encounter Visit Diagnoses Diagnosis Preoperative examination Preoperative examination, unspecified Unwanted fertility Reserved for inherently not codable concepts WITHOUT codable children Iron deficiency anemia, unspecified iron deficiency anemia type documented in this encounter Care Teams Pre Billing Clinician Relationship Specialty Start Date End Date Scarlett Norris [address] [address] 10/30/17 documented as of this encounter
--- OUTSIDE RECORDS SUMMARY | 2025-01-13 14:39 | XMS_ITS | Encounter Summary ---
Author Organization [facility] Address [address] [place] [address] Care Team Providers Care Oracle Database Administrator Name Role Phone Padmini Hamilton CNM Unavailable Unavailable Encounter Details Date Type Department Care Team (Late st Contact Info) Description 10/03/2017 Orders Only [facility] COMIC WRITER [address] [facility] [address] [place] [address] Malka Amos CNM Social History Tobacco Use [...] of this encounter Procedures * Due to [place] state law, this [...] in this encounter Results * Due to [place] [employer] law, this organization might not be sharing [...] 9:37 PM EDT Narrative Resulting Agency Comment [id number] Malka JOHNS LAB SAME DAY RESULT Final Re sult [facility] [address] [place] [address] * GLUCOSE, 1 HR GESTATIONAL SCREEN (50G CHALLENGE) (10/03/2017 9:12 AM EDT) Glucose^1H post 50 g glucose PO 89 <135 mg/dL [facility] 10/03/2017 9:12 AM EDT 10/03/2017 9:37 PM EDT Narrative Resulting Agency Comment [id number] Malka Amos CNM LABORATORY Final Result Performing Organization Address [facility] Co de Phone Number [facility] [address] [place] [address] documented in this encounter Visit Diagnoses Diagnosis Encounter for supervision of normal first in second trimester ([facility]) Supervision of normal first documented in this encounter Care Teams Oracle Database Administrator Relationship Specialty Start Date End Date Padmini Hamilton CNM Utility Assembler Certified Nurse Utility Assembler 05/02/17 10/29/17 Scarlett Norris [address] [address] 10/30/17 documented as of this encounter
--- OUTSIDE RECORDS SUMMARY | 2025-01-13 14:39 | XMS_ITS | Encounter Summary ---
Author Organization [facility] Address [address] [place] [address] Care Team Providers Care Business Solutions Analyst Name Role Phone Unavailable Primary Care Provider Unavailabl e Encounter Details Date Type Department Care Team (Late st Contact Info) Description 08/06/2018 Orders Only [facility] TIMERS INSPECTOR [address] [facility] [address] [place] [address] Anne Johnson CNM Social History Tobacco Use [...] Author Spina Bifida, Anencephaly or Hydrocephaly? No 08/06/2018 3:24 PM EDT Crystal Jackson R N Heart disease or abnormality? No 08/06/2018 3:24 PM EDT Crystal Jackson RN Abn formation of bones or maxine dy structure (Club foot)? No 08/06/2018 3:24 PM EDT Crystal Jackson RN Muscular dystrophy or weakness? No 3:24 PM EDT Crystal Jackson RN Down syndrome or other chrom osomal abnormality? No 08/06/2018 3:24 PM EDT Crystal Jackson R N Stillbirth, , infant or childhood deaths? No 08/06/2018 3:24 PM EDT Crystal Jackson R N Two or more miscarriages or loss in the same person? No 08/06/2018 3:24 PM EDT Crystal Levy RN The father of the baby is a first cousin or other blood relative? No 08/06/2018 3:24 PM EDT Crystal Johnson RN Fragile X, Autism or Learnin g Disability? No 08/06/2018 3:24 PM EDT Crystal Jackson R N Multiple births (ie, twins)? No 08/06/2018 3 :24 PM EDT Crystal Jackson RN Known history of Cystic Fibrosis? No 3:24 PM EDT Crystal Jackson RN Known history of Sickle Cell? No 08/06/2018 3:24 PM EDT Crystal Jackson RN Known history of Thalassemia? No 08/06/2018 3:24 PM EDT Crystal Jackson RN Known history of [place] Chorea? No 08/06/2018 3:24 PM EDT Crystal Jackson R N Known history of Brigido Sachs/C anavan disease? No 08/06/2018 3:24 PM EDT Crystal Jackson R N Known history of Cleft lip/palate? No 2018 3:24 PM EDT Crystal Jackson RN Known history of Neurofibromatosis? No 08/06 3:24 PM EDT Crystal Jackson RN Known history of Polycystic kidney disease? No 08/06/2018 3:24 PM EDT Crystal Jackson R N Maternal metabolic disorder (PKU)? No 2018 3:24 PM EDT Crystal Jackson RN documented as of this encounter Progress Notes * Baryr Smith - 08/11/2018 12:13 PM EDT To provider for review Results noted on the problem list * Harriett Chan, SANTOS - 08/07/2018 9:03 AM EDT Awaiting all labs documented in this encounter Plan of Treatment Not on file documented as of this encounter Procedures * Due to [place] [employer] law, this organization might not be sharing [...] encounter Results * Due to [place] [employer] law, this organization might not be sharing negative HIV tests. * CULTURE, URINE, ROUTINE (08/06/2018 2:28 PM EDT) Bacteria culture (Urine) SEE NOTE [facility] Comment: CULTURE, URINE, ROUTINE MICRO NUMBER: [id number] TEST STATUS: FINAL SPECIMEN SOURCE: URINE, CLEAN CATCH SPECIMEN QUALITY: ADEQUATE RESULT: No Growth 08/06/2018 2:28 PM EDT 08/06/2018 11:41 PM EDT Narrative Resulting Agency Comment [id number] Anne JOHNS LABORATORY Final Result [facility] [address] [place] [address] * (ABNORMAL) URINALYSIS, COMPLETE INCLUDES DIPSTICK AND [...] 11:41 PM EDT Narrative Resulting Agency Comment [id number] Anne JOHNS LAB SAME DAY RESULT Final Resul t Performing Organization Address City/State/[facility] Co de Phone Number [facility] [address] [place] [address] * (ABNORMAL) 1 PROFILE WITH VZV (08/06/2018 [...] 11:41 PM EDT Narrative Resulting Agency Comment [id number] Anne Johnson CNM LABORATORY Final Result [facility] [address] [place] [address] documented in this encounter Visit Diagnoses Diagnosis Supervision of other normal , antepartum (HHS) Urine frequency Urinary frequency Screening for HIV (human immunodeficiency virus) Special screening examination for other specified viral diseases documented in this encounter Care Teams Business Solutions Analyst Relationship Specialty Start Date End Date Scarlett Norris [address] [address] 10/30/17 documented as of this encounter
--- OUTSIDE RECORDS SUMMARY | 2025-01-13 14:39 | XMS_ITS | Encounter Summary ---
Author Organization [facility] Address [address] [place] [address] Care Team Providers Care Paper Cup Handle Machine Operator Name Role Phone Unavailable Primary Care Provider Unavailabl e Encounter Details Date Type Department Care Team (Late st Contact Info) Description 04/17/2018 Orders Only [facility] MOBILE HOMES REPAIRER [address] [facility] [address] [place] [address] Gisselle Urena CNM [address] [place] [address] Social History Tobacco Use Types Packs/Day Years [...] of this encounter Procedures * Due to [place] [employer] law, this organization might not be sharing negative HIV tests. Procedure Name Priority Date/Time Associated Diagnosis Comments THINPREP TIS PAP REFLEX HPV MRNA E6/E7, CT/NG, TRICH Routine 04/17/2018 2:35 PM EST Screening for malignant neoplasm of cervix HPV RNA, HIGH RISK, E6/E7, TMA Routine 04/17/2018 2:35 PM EST documented in this encounter Results * Due to [place] [employer] law, this organization might not be sharing negative HIV tests. * HPV RNA, HIGH RISK, E6/E7, TMA (04/17/2018 2:35 PM EST) HPV MRNA E6/E7 Not Detected Not Detected [facility] Comment: This test was performed using the APTIMA HPV Assay ([employer] This assay detects E6/E7 viral messenger RNA (mRNA) from 14 high-risk HPV types (16,18,31,33,35,39,45,51,52,56,58,59,66,68). The analytical performance characteristics of this assay have been determined by [employer]. The modifications have not been cleared or approved by the FDA. This assay has been validated pursuant to the CLIA regulations and is used for clinical purposes. 04/17/2018 2:35 PM EST 04/17/2018 10:21 PM EST Gisselle Urena [facility] LABORATORY Final Resu lt [facility] [address] [place] [address] * (ABNORMAL) THINPREP TIS PAP REFLEX HPV [...] evaluated with computer assisted technology. [facility] Biofuels Production Manager (Cvx/Vag) FAWN HUSSEIN(ASCP) CT screening location: [place] [address] [facility] Pathologist (Cvx/Vag) Kaitlyn Limon M.D., Ph.D., Board Certified in Anatomic and Clinical Pathology and Cytopathology (electronic signature) Consulting Pathologist [facility]ology [address] [place] [address] [facility] COMMENT SEE NOTE [facility] Comment: EXPLANATORY NOTE: The Pap is [...] NOT DETECTED [facility] COMMENT SEE NOTE [facility] Comment: This test was performed using the APTIMA COMBO2 Assay ([employer] The analytical performance characteristics of this assay, when used to test SurePath specimens have been determined by [facility]. Trichomonas vaginalis rRNA NOT DETECTED NOT DETECTED [facility] Comment: This test was performed using the APTIMA(R) Trichomonas vaginalis assay ([employer])). For more information on this test, go to: http://education.[employer]X/faq/Trichomonastma The performance characteristics of this assay when used to test SurePath(R) specimens have been determined by [facility]. Performance characteristics refer to the analytical performance of this test. 04/17/2018 2:35 PM EST 04/17/2018 10:21 PM EST Narrative Resulting Agency Comment [id number] Gisselle Urena CNM PATHOLOGY-INTERFACED Final Result [facility] [address] [place] [address] documented in this encounter Visit Diagnoses Diagnosis Screening for malignant neoplasm of cervix Screening for malignant neoplasm of the cervix documented in this encounter Care Teams Paper Cup Handle Machine Operator Relationship Specialty Start Date End Date Scarlett Norris [address] [address] 10/30/17 documented as of this encounter
--- OUTSIDE RECORDS SUMMARY | 2025-01-13 14:39 | XMS_ITS | Clinical Summary ---
Author Organization [facility] Address [address] [place] [address] Care Team Providers Care Cork Insulation Installer Name Role Phone Unavailable Primary Care Provider [...] Depression Screening 03/03/2024 COVID-19 Vaccine ( - 2024-2 6 season) 2024 Influenza Vaccine (#1) 2024 RSV [...]
--- OUTSIDE RECORDS SUMMARY | 2025-01-13 14:39 | XMS_ITS | Encounter Summary ---
Author Organization [facility] Address [address] [place] [address] Care Team Providers Care Cnc Operator Machinist Name Role Phone Unavailable Primary Care Provider Unavailabl e Encounter Details Date Type Department Care Team (Late st Contact Info) Description 07/22/2018 Orders Only [facility] STAFFING RN [address] [facility] [address] [place] [address] Anne Johnson CNM Social History Tobacco Use [...] of this encounter Results * Due to [place] state law, this organization might not be sharing negative HIV tests. * CULTURE, URINE, ROUTINE (08/06/2018 2:28 PM EDT) Bacteria culture (Urine) SEE NOTE [facility] Comment: CULTURE, URINE, ROUTINE MICRO NUMBER: [id number] TEST STATUS: FINAL SPECIMEN SOURCE: URINE, CLEAN CATCH SPECIMEN QUALITY: ADEQUATE RESULT: No Growth 08/06/2018 2:28 PM EDT 08/06/2018 11:41 PM EDT Narrative Resulting Agency Comment [id number] [facility] LABORATORY Final Result Performing Organization Address [facility] de Phone Number [facility] [address] [place] [address] * (ABNORMAL) URINALYSIS, COMPLETE INCLUDES DIPSTICK AND [...] 11:41 PM EDT Narrative Resulting Agency Comment [id number] [facility] LAB SAME DAY RESULT Final Resul t Performing Organization Address [facility] de Phone Number [facility] [address] [place] [address] * (ABNORMAL) 1 PROFILE WITH VZV (08/06/2018 [...] 11:41 PM EDT Narrative Resulting Agency Comment [id number] Anne Johnson CNM LABORATORY Final Result Performing Organization Address City/State/[facility] Co de Phone Number [facility] [address] [place] [address] documented in this encounter Visit Diagnoses Diagnosis Supervision of other normal , antepartum (HHS) Urine frequency Urinary frequency Screening for HIV (human immunodeficiency virus) Special screening examination for other specified viral diseases documented in this encounter Care Teams Cnc Operator Machinist Relationship Specialty Start Date End Date Scarlett Norris [address] [address] 10/30/17 documented as of this encounter
--- OUTSIDE RECORDS SUMMARY | 2025-01-13 14:39 | XMS_ITS | Encounter Summary ---
Author Organization [facility] Address [address] [place] [address] Care Team Providers Care Business Attorney Name Role Phone Unavailable Primary Care Provider Unavailabl e Encounter Details Date Type Department Care Team (Late st Contact Info) Description 04/20/2018 Telephone [facility] HEAD OF DATA [address] [facility] [address] [place] [address] Malka Amos CNM Social History Tobacco Use [...] on filedocumented in this encounter Care Teams Business Attorney Relationship Specialty Start Date End Date Scarlett Norris [address] [address] 10/30/17 documented as of this encounter
== END 2025-01-13 11:48 | disposition home or self-care (01) ==
LOC: HO.HMCFMS 11:24
PROVIDERS: PCP Internal Medicine; Visit Provider Student in an Organized Health Care Education/Training Program
DX: N32.81 Overactive bladder (principal); D50.9 Iron deficiency anemia, unspecified

== ENCOUNTER → 2025-01-13 11:23 | Outpatient (BNVA) | payer OTHER, SELFPAY | PROVIDERS: PCP Internal Medicine; Visit Provider Student in an Organized Health Care Education/Training Program | DX: N32.81 Overactive bladder (principal); D50.9 Iron deficiency anemia, unspecified | CPT/HCPCS: 99212 ==